=== PATIENT | male | born 1970 | race African-American/Black ===

== ENCOUNTER 2018-05-28 12:54 | Inpatient (IN) | payer MEDICARE, MEDICAID ==
[~2018-05-28] VITALS: Ht 185.4 cm; Wt 136.5 kg
--- NOTE | 2018-05-28 13:02 | NUR ---
PT C/O ABD PAIN RADIATING TO LOWER BACK SINCE THIS MORNING, 09/16 PS, PT IS AAOX4, NOT IN RESPIRATORY DISTRESS, V/S STABLE, HOOKED TO MONITOR, KEPT RESTED AND COMFORTABLE.
--- NOTE | 2018-05-28 13:10 | NUR ---
IV LINE ESTABLISHED, LABS DRAWNED AND SENT TO LAB.
--- NOTE | 2018-05-28 13:35 | NUR ---
MORPHINE 4MG IV GIVEN.
[2018-05-28] MEDS ORDERED: ONDANSETRON HCL/PF 4 MG/2 ML VIAL ONE (13:39)
[2018-05-28] MEDS ORDERED: MORPHINE SULFATE INJ 4 MG/ML DISP.SYRIN ONE (13:39)
[2018-05-28 13:43] LABS: BASOPHILS # (AUTO) 0.1 /CMM (0.0-0.2); BASOPHILS % (AUTO) 0.5 % (0.0-2.0); EOSINOPHILS % (AUTO) 3.5 % (0.0-6.0); HEMATOCRIT 39 % (39-51); HEMOGLOBIN 13.2 g/dL (13.5-17.5); LYMPHOCYTES # (AUTO) 1.7 /CMM (0.8-4.8); LYMPHOCYTES % (AUTO) 13.8 % (20.0-44.0); MEAN CORPUSCULAR HGB CONC 34 g/dl (31.0-36.0); MEAN CORPUSCULAR VOLUME 94 fL (80-96); MONOCYTES # (AUTO) 1.1 /CMM (0.1-1.30); MONOCYTES % (AUTO) 8.3 % (2.0-12.0); NEUTROPHILS # (AUTO) 9.4 /CMM (1.8-8.9); NEUTROPHILS % (AUTO) 73.9 % (43.0-81.0); PLATELET COUNT (AUTO) 295 /CMM (150-450); RED BLOOD CELL COUNT(AUTO) 4.18 MIL/uL (4.5-6.0); WHITE BLOOD COUNT (AUTO) 12.7 K/uL (4.3-11.0)
--- NOTE | 2018-05-28 13:46 | NUR ---
PT IS WHEELED TO CT SCAN VIA [facility].
--- NOTE | 2018-05-28 13:48 | NUR ---
URINAL GIVEN UNABLE TO PROVIDE URINE SPECIMEN.
[2018-05-28 13:53] LABS: CREATININE 2.7 mg/dL (0.6-1.3); POTASSIUM 3.9 mmol/L (3.5-5.1)
[2018-05-28 13:58] LABS: ALBUMIN 3.7 g/dL (3.4-5.0); BILIRUBIN,DIRECT 0.1 mg/dL (0.0-0.2); BILIRUBIN,TOTAL 0.6 mg/dL (0.2-1.0); TOTAL PROTEIN, SERUM 7.6 g/dL (6.4-8.2)
[2018-05-28] MEDS ORDERED: MORPHINE SULFATE INJ 2 MG/ML DISP.SYRIN IV ONE (14:00)
[2018-05-28] MEDS ORDERED: ONDANSETRON HCL/PF 4 MG/2 ML VIAL IVP ONE (14:00)
--- NOTE | 2018-05-28 14:30 | NUR ---
URINE SPECIMEN COLLECTED AND SENT TO LAB.
[2018-05-28 14:46] LABS: APPEARANCE,URINE Clear (CLEAR); BILIRUBIN,URINE Negative (NEGATIVE); BLOOD, URINE Negative Ery/uL (NEGATIVE); COLOR,URINE Yellow (YELLOW); KETONES,URINE Negative (NEGATIVE); LEUKOCYTE ESTERASE ,URINE Negative (NEGATIVE); NITRITE, URINE Negative (NEGATIVE); PROTEIN,URINE 100 mg/dl (NEGATIVE); UGLUCOSE Negative (NEGATIVE); UROBILINOGEN,URINE 0.2 EU/dL (0.2)
[2018-05-28] MEDS ORDERED: SPIR25TA PO (14:49)
[2018-05-28] MEDS ORDERED: CARV25TA2 PO (14:49)
[2018-05-28] MEDS ORDERED: ROSU10TA2 PO (14:49)
[2018-05-28] MEDS ORDERED: INSU100V37 SQ (14:49)
[2018-05-28] MEDS ORDERED: LOSA25TA27 PO (14:49)
[2018-05-28] MEDS ORDERED: PANT40TA2 PO (14:49)
[2018-05-28] MEDS ORDERED: FENO145T PO (14:49)
[2018-05-28] MEDS ORDERED: SITA100T PO (14:49)
[2018-05-28] MEDS ORDERED: OMEG1CAP PO (14:49)
[2018-05-28] MEDS ORDERED: ASPI-1169 PO (14:49)
[2018-05-28] MEDS ORDERED: METO2.5T2 PO (14:49)
[2018-05-28] MEDS ORDERED: INSU100V11 SQ (14:49)
[2018-05-28] MEDS ORDERED: ISOS30TA6 PO (14:49)
[2018-05-28] MEDS ORDERED: HYDR100T27 PO (14:49)
[2018-05-28] MEDS ORDERED: NIFE90TA2 PO (14:49)
[2018-05-28] MEDS ORDERED: CLON1PAT2 TD (14:49)
[2018-05-28] MEDS ORDERED: NIAC500T2 PO (14:49)
[2018-05-28] MEDS ORDERED: CLOP75TA15 PO (14:49)
[2018-05-28] MEDS ORDERED: BUME2TAB3 PO (14:49)
--- NOTE | 2018-05-28 14:51 | NUR ---
CALLED HOUSE SUP FOR MS BED
[2018-05-28] MEDS ORDERED: IV NS 0.9% 1,000 ML BAG IV ONE (15:00)
--- NOTE | 2018-05-28 15:04 | NUR ---
MS BED 317-2 GIVEN. RN IS KENNETH
--- NOTE | 2018-05-28 15:04 | NUR ---
TECH AT BEDSIDE FOR ULTRSOUND.
[2018-05-28] MEDS: hydrALAZINE HCL 50 MG TABLET PO SCH ×2 (15:30→17:28)
--- NOTE | 2018-05-28 15:40 | NUR ---
MS RN NOTES PATIENT ARRIVED AT UNIT AT 1530. REPORT RECEIVED FROM HELEN SALCIDO RN. PATIENT AWAKE, ALERT AND ORIENTED X 4, VERBALLY RESPONSIVE AND RESPONDS TO VERBAL AND TACTILE STIMULI. BREATHING EVEN AND UNLABORED. NO ACUTE DISTRESS AT THIS TIME. PATIENT CALM AND RELAXED. PATIENT ADMITTED UNDER MEDICAL SUPERVISION OF DR OROSCO, AWARE OF PATIENT ARRIVAL. PATIENT ORIENTED TO UNIT, STAFF, ROOM, PLAN OF CARE AND VERBALIZED UNDERSTANDING. WILL CONTINUE TO MONITOR. BED LOCKED AND IN LOW POSITION. BILATERAL UPPER SDIE RAILS UP AND LOCKED. CALL LIGHT WITHIN EASY REACH
[2018-05-28 16:00] VITALS: BP 143/70
[2018-05-28] MEDS ORDERED: MAGNESIUM HYDROXIDE 30 ML UDC PO PRN (16:00)
[2018-05-28] MEDS ORDERED: Z GUARD REMEDY 2 OZ OINT TP PRN (16:00)
[2018-05-28] MEDS ORDERED: MORPHINE SULFATE INJ 2 MG/ML DISP.SYRIN IV PRN (16:00)
[2018-05-28] MEDS ORDERED: ONDANSETRON HCL/PF 4 MG/2 ML VIAL IVP PRN (16:00)
[2018-05-28] MEDS ORDERED: ZOLPIDEM TARTRATE 5 MG TABLET PO PRN (16:00)
[2018-05-28] MEDS ORDERED: MAG HYDROX/AL HYDROX/SIMETH 30 ML UDC PO PRN (16:00)
--- NOTE | 2018-05-28 16:26 | NUR ---
MS RN NOTES SPOKE WITH DR. OROSCO AND VERIFIED NEW ORDER FOR NPO EXCEPT MEDICATIONS. ORDER NOTED AND CARRIED OUT. PATIENT MADE AWARE AND VERBALIZED UNDERSTANDING. WILL CONTINUE TO MONITOR
[2018-05-28] MEDS ORDERED: Medication Not On Formulary EA (Omega-3 Fatty Acids/Fish Oil (Fish Oil 1,000 Mg Capsule) PO SCH (17:00)
[2018-05-28] MEDS: IV 1/2NS 1000 ML 1,000 ML IV PRN (18:27)
--- NOTE | 2018-05-28 18:45 | NUR ---
MS RN NOTES PATIENT RESTING INSIDE ROOM. AWAKE, ALERT AND ORIENTED X 4, VERBALLY RESPONSIVE AND RESPONDS TO VERBAL AND TACTILE STIMULI. NO CHANGES IN LOC NOTED AT THIS TIME. IV INTACT AND FLUSHING WELL. PATIENT KEPT CLEAN, DRY AND COMFORTABLE. CONTINUE WITH NPO EXCEPT MEDICATIONS. PATIENT AWARE AND VERBALIZED UNDERSTANDING. WILL ENDORSE TO INCOMING SHIFT FOR BRIANNA. BED LOCKED AND IN LOW POSITION. BILATERAL UPPER SIDE RAILS UP AND LOCKED. CALL LIGHT WITHIN EASY REACH
--- NOTE | 2018-05-28 19:15 | NUR ---
RN Initial Notes: Received report from Bandar STAFFORD. Pt resting in bed, awake, sleeping, arouses to tactile stimuli, respiration even and unlabored, iv access patent and flushing well, infusing with 1/2 NS at 150 ml/hr. pt continent, uses urinal, urinal within reach. Pt claimed he's pain right now is manageable. Discussed plan of care to the pt, agree. Pt NPO x meds. Safety precautions for fall initiated, call light in reach, will continue monitoring pt.
[2018-05-28 20:00] VITALS: BP 136/79
--- NOTE | 2018-05-28 20:00 | NUR ---
rn notes: pt has hx of dm, no accu check order, also requesting nicotine patch, pt has chf hx, has order for ns at 150ml/hr, t/o from for accu check donta nj to received fluid 1/2 ns at 150 ml/hr per donta hutchison for nicotine patch 14mg.
--- NOTE | 2018-05-28 20:14 | NUR ---
rn notes: dr jorge luis de la o md came to the unit, at bed side with the pt, informed about nicotine patch, per okay to have nicotine patch, also stated to change morphine order from q4hrs prn to q3hrs prn, new order : morphine 2mg ivp q3hrs prn for severe pain 8-10.
[2018-05-28 20:40] VITALS: BP 136/79
[2018-05-28 21:26] VITALS: BP 165/74
[2018-05-28] MEDS: CARVEDILOL 12.5 MG TABLET PO SCH (21:30)
--- NOTE | 2018-05-28 21:30 | NUR ---
accu check: blood sugar test performed and result is 154, non insulin coverage per md, pt on npo, will monitor for any s/s of hypoglycemia
[2018-05-28] MEDS: NICOTINE PATCH (14MG) 14 MG PATCH.TD24 TD SCH (21:31)
[2018-05-28] MEDS: FENOFIBRATE NANOCRYS (145 MG) 145 MG TABLET PO SCH (21:31)
[2018-05-28] MEDS: BLOOD SUGAR DIAGNOSTIC 1 EACH STRIP IN SCH (21:31)
[2018-05-28] MEDS: CLOPIDOGREL BISULFATE 75 MG TABLET PO SCH (21:31)
[2018-05-28] MEDS: MORPHINE SULFATE INJ 2 MG/ML DISP.SYRIN IV PRN (21:32)
--- NOTE | 2018-05-28 21:32 | NUR ---
prn morphine: pt c/o 09/16 abdominal pain, requesting for morphine, prn morphine 2mg ivp administered to the pt at this time, vs taken and recorded prior to administering meds, will continue to monitor and reassess pt
--- NOTE | 2018-05-28 21:43 | NUR ---
rn notes: nicotine patch placed on SADA, non hairy part, educate pt regarding possible side effect of the medication
[2018-05-28 23:00] VITALS: BP 146/77
--- NOTE | 2018-05-29 00:33 | NUR ---
rn notes: seen pt sleeping at this time, snoring, appears calm and comfortable, no facial grimace noted, will continue monitoring pt
[2018-05-29 00:45] VITALS: BP 141/74
[2018-05-29] MEDS: MORPHINE SULFATE INJ 2 MG/ML DISP.SYRIN IV PRN ×6 (00:50→22:05)
--- NOTE | 2018-05-29 00:51 | NUR ---
prn morphine: pt c/o 09/16 abdominal pain requesting for morphine. prn Morphine 2mg ivp administered at this time, vs as follows: 141/74 hr 72, rr 18, 96% on ra, will continue to reassess and monitor
[2018-05-29] MEDS: IV 1/2NS 1000 ML 1,000 ML IV PRN (02:12)
[2018-05-29 03:30] VITALS: BP 150/73
--- NOTE | 2018-05-29 03:50 | NUR ---
prn morphine: pt called requesting for morphine, stated ps 8/10 abdominal pain, prn morphine 2mg ivp administered at this time, will continue to monitor and reassess pt
[2018-05-29] MEDS: BLOOD SUGAR DIAGNOSTIC 1 EACH STRIP IN SCH ×4 (06:37→21:17)
--- NOTE | 2018-05-29 06:45 | NUR ---
accu check: blood sugar check performed result is 143, no insulin given per order, pt npo acute pancreatitis, will monitor for any s/s of hypoglycemia
--- NOTE | 2018-05-29 06:51 | NUR ---
prn morphine: pt c/o 09/16 abdominal pain requesting for iv morphine, prn morphine 2mg ivp administered at this time, will continue to monitor and reassess
--- NOTE | 2018-05-29 06:56 | NUR ---
rn closing notes: pt remains on ra, denies any sob, last pain meds administered at 0651am. iv access remains patent and flushing well, infusing with 1/2 ns at 150ml/hr. no episode of n/v throughout the shift, kept on npo as ordered. no further complaints noted. vs remains stable, needs attended, for gi consult today. safety precautions for fall remains engaged, call light in reach, will endorse to day rn for continuity of care.
[2018-05-29] MEDS: PANTOPRAZOLE 40 MG TABLET.DR PO SCH (07:30)
--- NOTE | 2018-05-29 07:40 | NUR ---
MS RN Opening Notes Patient currently awake, resting in bed watching television. Semi-Fowlers position, supine. Alert and oriented x3, able to make needs known. No complaints of shortness of breath or abdominal pain at this time. Respirations even and unlabored on room air. Peripheral IV access to the left AC 18 gauge, intact, patent and infusing fluids as ordered. Updated patient on current plan of care and safety measures. Safety and fall precautions in place: bed in lowest and locked position, side rails up x2, bed alarm on, call light and personal possessions within reach. Room well lit and floor clear of items. Reminded patient of safety measures, verbalized understanding. Patient currently clean, dry and comfortable. Will continue to monitor and intervene as needed.
[2018-05-29 07:48] LABS: BASOPHILS # (AUTO) 0.1 /CMM (0.0-0.2); BASOPHILS % (AUTO) 0.6 % (0.0-2.0); EOSINOPHILS % (AUTO) 4.1 % (0.0-6.0); HEMATOCRIT 38 % (39-51); HEMOGLOBIN 12.7 g/dL (13.5-17.5); LYMPHOCYTES # (AUTO) 1.9 /CMM (0.8-4.8); MEAN CORPUSCULAR HGB CONC 33 g/dl (31.0-36.0); MEAN CORPUSCULAR VOLUME 95 fL (80-96); MONOCYTES # (AUTO) 0.9 /CMM (0.1-1.30); MONOCYTES % (AUTO) 9.2 % (2.0-12.0); NEUTROPHILS # (AUTO) 6.4 /CMM (1.8-8.9); NEUTROPHILS % (AUTO) 66.1 % (43.0-81.0); PLATELET COUNT (AUTO) 266 /CMM (150-450); RED BLOOD CELL COUNT(AUTO) 4.06 MIL/uL (4.5-6.0); WHITE BLOOD COUNT (AUTO) 9.7 K/uL (4.3-11.0)
[2018-05-29 07:56] VITALS: BP 126/73
[2018-05-29 08:05] VITALS: BP 126/73
[2018-05-29 08:08] LABS: ALBUMIN 3.6 g/dL (3.4-5.0); BILIRUBIN,TOTAL 0.6 mg/dL (0.2-1.0); CALCIUM, SERUM 9.6 mg/dL (8.5-10.1); CREATININE 2.7 mg/dL (0.6-1.3); MAGNESIUM 1.7 mg/dL (1.8-2.4); PHOSPHORUS 4.3 mg/dL (2.5-4.9); POTASSIUM 3.7 mmol/L (3.5-5.1); TOTAL PROTEIN, SERUM 7.6 g/dL (6.4-8.2)
[2018-05-29] MEDS ORDERED: LEVOFLOXACIN 500 MG /D5W 100ML 500 MG in PREMIX 1 EA IV SCH (09:00)
[2018-05-29] MEDS: NICOTINE PATCH (14MG) 14 MG PATCH.TD24 TD SCH (09:00)
[2018-05-29] MEDS: hydrALAZINE HCL 50 MG TABLET PO SCH ×3 (09:00→16:35)
[2018-05-29] MEDS: ASPIRIN 81 MG TAB.CHEW PO SCH (09:54)
[2018-05-29] MEDS: ATORVASTATIN 10 MG TABLET PO SCH (09:55)
[2018-05-29] MEDS: CARVEDILOL 12.5 MG TABLET PO SCH ×2 (09:55→21:14)
[2018-05-29] MEDS: NIFEdipine XL (30MG) 30 MG TAB PO SCH (09:56)
[2018-05-29] MEDS: ISOSORBIDE MONONITRATE (30MG) 30 MG TAB.SR.24H PO SCH (09:57)
[2018-05-29] MEDS: Magnesium 1GM/D5W 100ML PREMIX 100 ML IV SCH ×2 (12:43→13:53)
[2018-05-29 16:29] VITALS: BP 130/83
[2018-05-29] MEDS: IV D5/ 0.9% NACL 1,000 ML IV PRN (16:35)
--- NOTE | 2018-05-29 18:56 | NUR ---
MS RN Closing Notes Patient currently awake, resting in bed watching television. Semi-Fowlers position, supine. Alert and oriented x3, able to make needs known. No complaints of shortness of breath or abdominal pain at this time. Respirations even and unlabored on room air. Peripheral IV access to the left AC 18 gauge, intact, patent and infusing fluids as ordered. Updated patient on current plan of care and safety measures. Safety and fall precautions in place: bed in lowest and locked position, side rails up x2, bed alarm on, call light and personal possessions within reach. Room well lit and floor clear of items. Reminded patient of safety measures, verbalized understanding. Patient currently clean, dry and comfortable. Pain managed with PRN medications as ordered. Will endorse to awake overnight monitor RN for continuity of care.
--- NOTE | 2018-05-29 19:30 | NUR ---
RN MS OPENING NOTES RECEIVED PATIENT IN BED AWAKE, ALERT AND ORIENTED X4, VERBALLY RESPONSIVE, ABLE TO MAKE NEEDS KNOWN. BREATHING EVEN AND UNLABORED. NO SOB NOTED. TOLERATING ROOM AIR. WITH NO COMPLAINTS OF PAIN OR DISCOMFORT. NO FACIAL GRIMACING. IV ON LEFT AC INTACT AND PATENT WITH IVF INFUSING. SKIN DRY AND WARM TO TOUCH. AFEBRILE. PATIENT NOTED WITH A DISTENDED ABDOMEN. PER PATIENT, HE HAS NOT HAD A BOWEL FOR ALMOST 5 DAYS. WILL GIVE MOM ORDERED. ALL OTHER NEEDS MET. SAFETY MEASURES IN PLACE. CALL LIGHT WITHIN REACH. WILL CONTINUE TO MONITOR.
[2018-05-29 20:00] VITALS: BP 152/76
[2018-05-29] MEDS: CLOPIDOGREL BISULFATE 75 MG TABLET PO SCH (21:14)
[2018-05-29] MEDS: FENOFIBRATE NANOCRYS (145 MG) 145 MG TABLET PO SCH (21:14)
--- NOTE | 2018-05-29 22:22 | NUR ---
RN MS NOTES PATIENT REQUESTED FOR BENADRYL DUE TO ITCHING. PER PATIENT HE'S BEEN REQUESTING IT SINCE THE DAY SHIFT. PAGED FIBER DRIER OPERATOR NATHANAEL CABRAL FOR ORDER. WAITING RESPONSE. INFORMED PATIENT THAT CHACHO HUFFMAN WAS PAGED.
--- NOTE | 2018-05-29 22:55 | NUR ---
RN MS NOTES FOREST AND CONSERVATION WORKER NATHANAEL CABRAL, HERE IN UNIT, INFORMED AGAIN OF PATIENT'S REQUEST FOR BENADRYL DUE TO ITCHING. PER CHACHO HUFFMAN, BENADRYL 25MG PO Q6H PRN. ORDER NOTED AND CARRIED OUT.
[2018-05-29] MEDS ORDERED: diphenhydrAMINE HCL ELIX 25 MG/10 ML UDC PO PRN (23:00)
--- NOTE | 2018-05-29 23:00 | NUR ---
RN MS NOTES PATIENT SLEEPING RIGHT NOW. WILL GIVE BENADRYL WHEN REQUESTED AGAIN.
[2018-05-30] MEDS: MORPHINE SULFATE INJ 2 MG/ML DISP.SYRIN IV PRN ×5 (02:06→21:37)
[2018-05-30] MEDS ORDERED: diphenhydrAMINE HCL 25 MG CAPSULE PO PRN (02:12)
--- NOTE | 2018-05-30 02:22 | NUR ---
RN MS NOTES PER PATIENT, HE IS NOT AWARE THAT HE NEEDED HIS TRESIBE INSULIN. INFORMED PATIENT THAT THE HOSPITAL PHARMACY DOES NOT CARRY THE MEDICATION AND THAT HE WOULD NEED TO HAVE SOMEONE BRING IT IN. PER PATIENT, HE DOESNT NEED IT ANY WAY SINCE HE DOESN'T EAT, BUT INFORMED THAT PER PHARMACY, IT IS JUST IN CASE HE NEEDED COVERAGE. PER PATIENT HE WILL TRY TO HAVE MEDICATION BROUGHT IN.
[2018-05-30] MEDS: BLOOD SUGAR DIAGNOSTIC 1 EACH STRIP IN SCH ×4 (06:39→21:43)
--- NOTE | 2018-05-30 06:58 | NUR ---
RN MS CLOSING NOTES PATIENT RESTING IN BED. NO ACUTE CHANGES THROUGHOUT SHIFT. BREATHING EVEN AND UNLABORED. NO SOB NOTED. TOLERATING ROOM AIR. CURRENTLY WITH NO COMPLAINTS OF PAIN OR DISCOMFORT. NO FACIAL GRIMACING. IV ON LEFT AC INTACT AND PATENT WITH IVF INFUSING. SKIN DRY AND WARM TO TOUCH. AFEBRILE. ALL OTHER NEEDS MET. SAFETY MEASURES IN PLACE. CALL LIGHT WITHIN REACH. WILL ENDORSE TO ONCOMING NURSE FOR BRIANNA.
[2018-05-30] MEDS: PANTOPRAZOLE 40 MG TABLET.DR PO SCH (07:30)
--- NOTE | 2018-05-30 07:50 | NUR ---
m/s air bag builder: notes pt remains npo. voiced no discomfort at this time. instructed to call for assistance. will continue to monitor.
[2018-05-30 08:00] VITALS: BP 148/90
[2018-05-30] MEDS: NICOTINE PATCH (14MG) 14 MG PATCH.TD24 TD SCH (08:20)
--- NOTE | 2018-05-30 08:20 | NUR ---
m/s group social worker: md visit seen and examined by dr. lentz and updated plan of care. about to give medications to pt and dr. lentz wants me to hold off for now, wants his bowel to rest as stated. md aware of b/p, stated, "that's fine, hold the medications." pt aware and verbalized understanding.
[2018-05-30] MEDS: IV D5/ 0.9% NACL 1,000 ML IV PRN (08:22)
[2018-05-30] MEDS: hydrALAZINE HCL 50 MG TABLET PO SCH ×3 (08:23→16:37)
[2018-05-30] MEDS: CARVEDILOL 12.5 MG TABLET PO SCH ×2 (08:24→21:00)
[2018-05-30] MEDS: ISOSORBIDE MONONITRATE (30MG) 30 MG TAB.SR.24H PO SCH (08:24)
[2018-05-30] MEDS: ATORVASTATIN 10 MG TABLET PO SCH (08:24)
[2018-05-30] MEDS: ASPIRIN 81 MG TAB.CHEW PO SCH (08:24)
[2018-05-30] MEDS: NIFEdipine XL (30MG) 30 MG TAB PO SCH (08:25)
--- NOTE | 2018-05-30 08:55 | NUR ---
m/s muck farmer: notes pt c/o itchiness, but no rash noted. request for benadryl, informed pt that i need to call the doctor to change it to iv, pt verbalized understanding. pt remains npo. dr. lentz here and made aware with order to change benadryl to iv 25mg q 6 hrs prn. order read back and carried out and acknowledged.
[2018-05-30] MEDS: LEVOFLOXACIN 250 MG /D5W 50 ML 250 MG in PREMIX 1 EA IV SCH (09:24)
[2018-05-30] MEDS: diphenhydrAMINE HCL 50 MG/ML VIAL IV PRN ×2 (09:24→15:33)
--- NOTE | 2018-05-30 11:00 | NUR ---
m/s bell spinner: notes pt sounds asleep. no distress noted. will continue to monitor.
--- NOTE | 2018-05-30 12:20 | NUR ---
MS RN NOTES Administered Morphine 2mg IVP per Patients request. Patient stated pain level of 8/10 on LOWER ABDOMEN. Guarding and irritability noted. Medication was scanned but my computer . Vial discarded in the blue incinerator. Unable to scan medication.
--- NOTE | 2018-05-30 12:50 | NUR ---
m/s food and beverage lead: notes pt sounds asleep at this time. resp. even and unlabored. no s/s of discomfort. call light within reach.
--- NOTE | 2018-05-30 15:33 | NUR ---
m/s box car checker: notes c/o 09/16 abdominal pain, medicated with morphine 2mg ivp by rn. also given benadryl 25mg ivp due to itchiness via iv by rn. instructed to call for assistance. will continue to monitor.
[2018-05-30 16:00] VITALS: BP 154/93
--- NOTE | 2018-05-30 16:03 | NUR ---
m/s apartment groundskeeper: notes in bed awake, watching tv. denies any discomfort at this time. instructed to call for assistance. will monitor.
--- NOTE | 2018-05-30 18:11 | NUR ---
m/s poured pipe maker: notes pt sounds asleep. no distress noted. pt remains npo. needs attended. call light within reach.
--- NOTE | 2018-05-30 19:00 | NUR ---
m/s diamond sorter: notes bedside report given to emelia (rn) for continuity of care.
--- NOTE | 2018-05-30 19:15 | NUR ---
MS RN NOTE RECEIVED PT IN STABLE CONDITION, A&O X4, ABLE TO MAKE NEEDS KNOWN. CURRENTLY WATCHING TV. NO SIGNS OF SOB OR DISTRESS NO C/O PAIN. PT REMAINS NPO PER MD ORDER. ALL CURRENT NEEDS MET. SAFETY PRECAUTIONS IN PLACE: BED LOW, LOCKED, UPPER RAILS UP, AND CALL LIGHT WITHIN REACH. WILL CONT MONITOR.
[2018-05-30 20:00] VITALS: BP 165/83
[2018-05-30 20:04] VITALS: BP 165/83
--- NOTE | 2018-05-30 21:37 | NUR ---
MS RN NOTE PRN MORPHINE 1 MG IV GIVEN FOR ABD PAIN. WILL CONT TO MONITOR.
[2018-05-30] MEDS: CLOPIDOGREL BISULFATE 75 MG TABLET PO SCH (21:43)
[2018-05-30] MEDS: FENOFIBRATE NANOCRYS (145 MG) 145 MG TABLET PO SCH (21:43)
--- NOTE | 2018-05-30 21:43 | NUR ---
MS RN NOTE PM MEDICATIONS HELD PER MD ORDER.
[2018-05-31] MEDS: diphenhydrAMINE HCL 50 MG/ML VIAL IV PRN ×2 (01:16→09:26)
--- NOTE | 2018-05-31 01:16 | NUR ---
MS RN NOTE PRN BENADRYL 25 MG IV GIVEN PER PT REQUEST. WILL CONT. TO MONITOR.
[2018-05-31] MEDS: IV D5/ 0.9% NACL 1,000 ML IV PRN (01:22)
[2018-05-31] MEDS: MORPHINE SULFATE INJ 2 MG/ML DISP.SYRIN IV PRN ×6 (01:44→20:30)
--- NOTE | 2018-05-31 01:44 | NUR ---
MS RN NOTE PRN MORPHINE 1 MG IV GIVEN FOR ABD PAIN 09/16. WILL CONT. TO MONITOR.
--- NOTE | 2018-05-31 05:07 | NUR ---
MS RN NOTE PRN MORPHINE 1 MG IV GIVEN FOR ABD PAIN 09/16. WILL CONT. TO MONITOR.
--- NOTE | 2018-05-31 06:18 | NUR ---
MS RN NOTE PT IN STABLE CONDITION, A&O X4, ABLE TO MAKE NEEDS KNOWN. CURRENTLY WATCHING TV. NO SIGNS OF SOB OR DISTRESS. PAIN MANAGED PER MD ORDER. PT REMAINS NPO ORDERED BY MD. ALL CURRENT NEEDS MET. SAFETY PRECAUTIONS IN PLACE: BED LOW, LOCKED, UPPER RAILS UP, AND CALL LIGHT WITHIN REACH. WILL CONT MONITOR AND ENDORSE TO NEXT SHIFT FOR BRIANNA.
[2018-05-31 06:28] LABS: BASOPHILS % (AUTO) 0.3 % (0.0-2.0); EOSINOPHILS % (AUTO) 6.4 % (0.0-6.0); HEMATOCRIT 36 % (39-51); HEMOGLOBIN 11.9 g/dL (13.5-17.5); LYMPHOCYTES # (AUTO) 1.6 /CMM (0.8-4.8); LYMPHOCYTES % (AUTO) 17.6 % (20.0-44.0); MEAN CORPUSCULAR HGB CONC 33 g/dl (31.0-36.0); MEAN CORPUSCULAR VOLUME 94 fL (80-96); MONOCYTES # (AUTO) 0.9 /CMM (0.1-1.30); MONOCYTES % (AUTO) 9.5 % (2.0-12.0); NEUTROPHILS % (AUTO) 66.2 % (43.0-81.0); PLATELET COUNT (AUTO) 250 /CMM (150-450); RED BLOOD CELL COUNT(AUTO) 3.79 MIL/uL (4.5-6.0); WHITE BLOOD COUNT (AUTO) 9.1 K/uL (4.3-11.0)
[2018-05-31] MEDS: BLOOD SUGAR DIAGNOSTIC 1 EACH STRIP IN SCH ×5 (06:30→22:00)
[2018-05-31 06:57] LABS: CALCIUM, SERUM 9.6 mg/dL (8.5-10.1); CREATININE 2.4 mg/dL (0.6-1.3); POTASSIUM 3.9 mmol/L (3.5-5.1)
--- NOTE | 2018-05-31 07:10 | NUR ---
RN MS NOTES RECEIVED REPORT FROM PULP MIXER RN. PT IS A&O X4. PT DENIES ANY SOB BUT STATES THAT HE HAS BEEN HAVING COMPLAINTS OF PAIN IN THE ABD. AT PRESENT TIME PAIN IS TOLERABLE AND DOES NOT WANT ANY MEDICATION. 2 OUT OF 10 ON PAIN SCALE. BED IS IN LOWEST AND LOCKED POSITION WITH CALL LIGHT WITHIN REACH. ABLE TO MAKE NEEDS KNOWN. WILL CONTINUE TO MONITOR.
[2018-05-31 08:00] VITALS: BP 166/90
[2018-05-31] MEDS: PANTOPRAZOLE 40 MG TABLET.DR PO SCH (08:30)
[2018-05-31] MEDS: LEVOFLOXACIN 250 MG /D5W 50 ML 250 MG in PREMIX 1 EA IV SCH (08:46)
[2018-05-31] MEDS: ISOSORBIDE MONONITRATE (30MG) 30 MG TAB.SR.24H PO SCH (08:46)
[2018-05-31] MEDS: ATORVASTATIN 10 MG TABLET PO SCH (08:47)
[2018-05-31] MEDS: hydrALAZINE HCL 50 MG TABLET PO SCH ×3 (08:47→16:50)
[2018-05-31] MEDS: ASPIRIN 81 MG TAB.CHEW PO SCH (08:48)
[2018-05-31] MEDS: CARVEDILOL 12.5 MG TABLET PO SCH ×2 (08:48→22:00)
[2018-05-31] MEDS: NIFEdipine XL (30MG) 30 MG TAB PO SCH (08:48)
[2018-05-31] MEDS: NICOTINE PATCH (14MG) 14 MG PATCH.TD24 TD SCH (08:49)
[2018-05-31] MEDS: LOSARTAN POTASSIUM 25 MG TABLET PO SCH (13:24)
[2018-05-31] MEDS: BUMETANIDE (1 MG) 1 MG TABLET PO SCH (13:25)
--- NOTE | 2018-05-31 13:30 | NUR ---
RN MS NOTES SPOKE WITH PT ABOUT HOME MEDICATION TRESIBA. PT STATES FAMILY WILL BRING FROM HOME.
[2018-05-31 16:00] VITALS: BP 150/79
[2018-05-31] MEDS ORDERED: DEXTROSE 50%-WATER 50 ML DISP.SYRIN IV PRN (18:00)
--- NOTE | 2018-05-31 19:05 | NUR ---
RN CLOSING NOTES RECEIVED PT IN BED AWAKE AND ABLE TO MAKE NEEDS KNOWN. PT A&O X4. RESPIRATIONS EVEN AND UNLABORED WITH NO S/S OF ACUTE DISTRESS OR SOB NOTED. 20 IN LAC PATENT AND INTACT AND SL. SAFETY MEASURES IN PLACE WITH BED IS IN LOWEST LOCKED POSITION WITH SIDE RAILS UP X2. CALL LIGHT WITHIN REACH. WILL CONTINUE TO MONITOR. Addendum: 06/01/18 at 0321 by SEBASTIEN ANDRES RN MS RN OPENING NOTES
--- NOTE | 2018-05-31 19:22 | NUR ---
RN CLOSING NOTES GAVE REPORT TO SALESPERSON MEN'S AND BOYS' CLOTHING RN. PT IS A&O X4. PT DENIES ANY SOB BUT STATES THAT HE HAS BEEN HAVING COMPLAINTS OF PAIN IN THE ABD. AT PRESENT TIME PAIN IS TOLERABLE AND DOES NOT WANT ANY MEDICATION. 2 OUT OF 10 ON PAIN SCALE. BED IS IN LOWEST AND LOCKED POSITION WITH CALL LIGHT WITHIN REACH. ABLE TO MAKE NEEDS KNOWN. WILL ENDORSE CONTINUITY OF CARE TO SALESPERSON MEN'S AND BOYS' CLOTHING RN.
[2018-05-31 20:24] VITALS: BP 167/92
[2018-05-31] MEDS: CLOPIDOGREL BISULFATE 75 MG TABLET PO SCH (21:59)
[2018-05-31] MEDS: FENOFIBRATE NANOCRYS (145 MG) 145 MG TABLET PO SCH (21:59)
[2018-05-31] MEDS: INSULIN REGULAR, HUMAN 100 UNIT/ML 3 ML VIAL SQ PRN (22:04)
[2018-06-01] MEDS: MORPHINE SULFATE INJ 2 MG/ML DISP.SYRIN IV PRN ×4 (00:59→17:04)
[2018-06-01] MEDS: BLOOD SUGAR DIAGNOSTIC 1 EACH STRIP IN SCH ×4 (07:20→21:38)
--- NOTE | 2018-06-01 07:44 | NUR ---
MS RN NOTES PT IN BED AWAKE AND ABLE TO MAKE NEEDS KNOWN. PT A&O X4. RESPIRATIONS EVEN AND UNLABORED WITH NO S/S OF ACUTE DISTRESS OR SOB NOTED THROUGHOUT SHIFT. PT DENIES PAIN AT THIS TIME. IV IN RIGHT HAD 22G SL PATENT AND INTACT. SAFETY MEASURES IN PLACE WITH BED IS IN LOWEST LOCKED POSITION WITH SIDE RAILS UP X2. CALL LIGHT WITHIN REACH. WILL ENDORSE TO ONCOMING NURSE FOR BRIANNA.
[2018-06-01 07:46] LABS: BASOPHILS % (AUTO) 0.3 % (0.0-2.0); EOSINOPHILS % (AUTO) 6.9 % (0.0-6.0); HEMATOCRIT 36 % (39-51); LYMPHOCYTES # (AUTO) 1.4 /CMM (0.8-4.8); LYMPHOCYTES % (AUTO) 19.2 % (20.0-44.0); MEAN CORPUSCULAR HGB CONC 34 g/dl (31.0-36.0); MEAN CORPUSCULAR VOLUME 94 fL (80-96); MONOCYTES # (AUTO) 0.8 /CMM (0.1-1.30); MONOCYTES % (AUTO) 10.9 % (2.0-12.0); NEUTROPHILS # (AUTO) 4.6 /CMM (1.8-8.9); NEUTROPHILS % (AUTO) 62.7 % (43.0-81.0); PLATELET COUNT (AUTO) 251 /CMM (150-450); RED BLOOD CELL COUNT(AUTO) 3.84 MIL/uL (4.5-6.0); WHITE BLOOD COUNT (AUTO) 7.4 K/uL (4.3-11.0)
[2018-06-01 08:00] VITALS: BP 151/86
[2018-06-01 08:01] LABS: CALCIUM, SERUM 10.1 mg/dL (8.5-10.1); CREATININE 2.5 mg/dL (0.6-1.3); POTASSIUM 3.7 mmol/L (3.5-5.1)
[2018-06-01 08:35] VITALS: BP 151/86
[2018-06-01] MEDS: NICOTINE PATCH (14MG) 14 MG PATCH.TD24 TD SCH (09:17)
[2018-06-01] MEDS: PANTOPRAZOLE 40 MG TABLET.DR PO SCH (09:18)
[2018-06-01] MEDS: CARVEDILOL 12.5 MG TABLET PO SCH ×2 (09:18→21:39)
[2018-06-01] MEDS: NIFEdipine XL (30MG) 30 MG TAB PO SCH (09:18)
[2018-06-01] MEDS: ISOSORBIDE MONONITRATE (30MG) 30 MG TAB.SR.24H PO SCH (09:18)
[2018-06-01] MEDS: ATORVASTATIN 10 MG TABLET PO SCH (09:18)
[2018-06-01] MEDS: hydrALAZINE HCL 50 MG TABLET PO SCH ×3 (09:19→17:04)
[2018-06-01] MEDS: BUMETANIDE (1 MG) 1 MG TABLET PO SCH (09:19)
[2018-06-01] MEDS: LOSARTAN POTASSIUM 25 MG TABLET PO SCH (09:19)
[2018-06-01] MEDS: ASPIRIN 81 MG TAB.CHEW PO SCH (09:19)
[2018-06-01] MEDS: LEVOFLOXACIN 250 MG /D5W 50 ML 250 MG in PREMIX 1 EA IV SCH (09:32)
[2018-06-01] MEDS: INSULIN REGULAR, HUMAN 100 UNIT/ML 3 ML VIAL SQ PRN ×3 (12:36→21:49)
[2018-06-01 16:00] VITALS: BP 151/82
[2018-06-01 17:01] VITALS: BP 151/82
--- NOTE | 2018-06-01 19:15 | NUR ---
MS RN NOTES RECEIVED PT IN BED AWAKE AND ABLE TO MAKE NEEDS KNOWN. PT A&O X4. RESPIRATIONS EVEN AND UNLABORED WITH NO S/S OF ACUTE DISTRESS OR SOB NOTED. PT ON FULL LIQUID DIET AND TO ADVANCE TOLERATED. IV ON RIGHT HAND 22G PATENT AND INTACT SL. SAFETY MEASURES IN PLACE WITH BED IS IN LOWEST LOCKED POSITION WITH SIDE RAILS UP X2. CALL LIGHT WITHIN REACH. WILL CONTINUE TO MONITOR.
--- NOTE | 2018-06-01 19:36 | NUR ---
Endorsed care to RIVERA Adams. Herbert Vidal RN
[2018-06-01 20:00] VITALS: BP 139/90
[2018-06-01] MEDS: FENOFIBRATE NANOCRYS (145 MG) 145 MG TABLET PO SCH (21:39)
[2018-06-01] MEDS: CLOPIDOGREL BISULFATE 75 MG TABLET PO SCH (21:39)
[2018-06-01] MEDS ORDERED: INSULIN GLARGINE, 100 UNIT/ML CARTRIDGE SQ SCH (22:00)
--- NOTE | 2018-06-01 22:23 | NUR ---
MS RN NOTES PT REFUSED LANTUS INSULIN. PT ONLY RECEIVED SLIDING SCALE COVERAGE INSULIN 3 UNITS.
[2018-06-02] MEDS: MORPHINE SULFATE INJ 2 MG/ML DISP.SYRIN IV PRN (00:25)
--- NOTE | 2018-06-02 06:48 | NUR ---
MS RN NOTES PT IN BED SLEEPING BUT EASILY AWOKEN VERBALLY OR BY TOUCH. PT A/O X4 AND ABLE TO MAKE NEEDS KNOWN. RESPIRATIONS EVEN AND UNLABORED WITH NO S/S OF ACUTE DISTRESS OR SOB NOTED THROUGHOUT SHIFT. 1 MORPHINE GIVEN TO PT FOR PAIN, TOLERATED WELL, PT DENIES PAIN AT THIS TIME. PT ON FULL LIQUID DIET AND TO ADVANCE TOLERATED. IV ON RIGHT HAND 22G PATENT AND INTACT SL. SAFETY MEASURES IN PLACE WITH BED IS IN LOWEST LOCKED POSITION WITH SIDE RAILS UP X2. CALL LIGHT WITHIN REACH. WILL ENDORSE TO ONCOMING NURSE FOR BRIANNA.
[2018-06-02] MEDS: BLOOD SUGAR DIAGNOSTIC 1 EACH STRIP IN SCH (07:30)
[2018-06-02] MEDS: PANTOPRAZOLE 40 MG TABLET.DR PO SCH (07:30)
--- NOTE | 2018-06-02 07:36 | NUR ---
RN NOTE 0730 Accucheck taken per AM Shift, Blood sugar 156 no coverage given.
[2018-06-02 07:37] LABS: BASOPHILS % (AUTO) 0.3 % (0.0-2.0); EOSINOPHILS % (AUTO) 9.1 % (0.0-6.0); HEMATOCRIT 39 % (39-51); HEMOGLOBIN 12.6 g/dL (13.5-17.5); LYMPHOCYTES # (AUTO) 1.3 /CMM (0.8-4.8); MEAN CORPUSCULAR HGB CONC 33 g/dl (31.0-36.0); MEAN CORPUSCULAR VOLUME 94 fL (80-96); MONOCYTES # (AUTO) 0.7 /CMM (0.1-1.30); MONOCYTES % (AUTO) 10.7 % (2.0-12.0); NEUTROPHILS # (AUTO) 4.1 /CMM (1.8-8.9); NEUTROPHILS % (AUTO) 60.9 % (43.0-81.0); PLATELET COUNT (AUTO) 268 /CMM (150-450); RED BLOOD CELL COUNT(AUTO) 4.11 MIL/uL (4.5-6.0); WHITE BLOOD COUNT (AUTO) 6.7 K/uL (4.3-11.0)
--- NOTE | 2018-06-02 07:37 | NUR ---
RN Opening Note Received pt, stable and resting in bed. No s/s of resp distress/sob. No c/o pain at this time. IV access on right hand 22g SL. Abd non-distended, hypoactive bowel sounds present. Safety measures in place, call light in reach. Will cont to monitor.
[2018-06-02 07:57] LABS: CALCIUM, SERUM 10.2 mg/dL (8.5-10.1); CREATININE 2.5 mg/dL (0.6-1.3); POTASSIUM 3.6 mmol/L (3.5-5.1)
[2018-06-02 08:00] VITALS: BP 148/79
[2018-06-02] MEDS ORDERED: LEVOFLOXACIN (750 MG) 750 MG TABLET PO SCH (09:00)
[2018-06-02] MEDS: NICOTINE PATCH (14MG) 14 MG PATCH.TD24 TD SCH (09:37)
[2018-06-02] MEDS: CARVEDILOL 12.5 MG TABLET PO SCH (09:38)
[2018-06-02] MEDS: hydrALAZINE HCL 50 MG TABLET PO SCH (09:38)
[2018-06-02] MEDS: LOSARTAN POTASSIUM 25 MG TABLET PO SCH (09:40)
[2018-06-02 09:41] VITALS: BP 148/82
[2018-06-02] MEDS: NIFEdipine XL (30MG) 30 MG TAB PO SCH (09:41)
[2018-06-02] MEDS: ISOSORBIDE MONONITRATE (30MG) 30 MG TAB.SR.24H PO SCH (09:41)
[2018-06-02] MEDS: BUMETANIDE (1 MG) 1 MG TABLET PO SCH (09:41)
[2018-06-02] MEDS: ASPIRIN 81 MG TAB.CHEW PO SCH (09:41)
[2018-06-02] MEDS: ATORVASTATIN 10 MG TABLET PO SCH (09:41)
--- NOTE | 2018-06-02 12:00 | NUR ---
DISCHARGE NOTE PT DISCHARGED HOME. VSS, NO S/S OF RESP DISTRESS/SOB. NO C/O PAIN. DISCHARGE TEACHING PERFORMED USING EXIT CARE. ALL CONSULTS/IMAGING/LABS/MEDICATION LISTS PROVIDED. DISCHARGE INSTRUCTIONS/BELONGINGS LIST SIGNED, COPIED AND PLACED IN CHART. PT REFUSED D/C WOUND PHOTOS. IV ACCESS AND ID BAND REMOVED. PT LEFT HOSPITAL IN PRIVATE VEHICLE WITH .
[2018-06-02] MEDS ORDERED: CLONIDINE HCL 0.2MG/24H PTWK 1 EA PATCH TD SCH (15:00)
== END 2018-06-02 11:50 | disposition home or self-care (01) | DRG 438 ==
LOC: ER 12:56 → MED 15:11
PROVIDERS: ADMIT Internal Medicine; ATTEND Family Medicine
DX: K85.90 Acute pancreatitis without necrosis or infection, unspecified (principal); N17.0 Acute kidney failure with tubular necrosis; E87.1 Hypo-osmolality and hyponatremia; I13.0 Hypertensive heart and chronic kidney disease with heart failure and stage 1 through stage 4 chronic kidney disease, or unspecified chronic kidney disease; I50.32 Chronic diastolic (congestive) heart failure; E11.22 Type 2 diabetes mellitus with diabetic chronic kidney disease; E11.65 Type 2 diabetes mellitus with hyperglycemia; I25.10 Atherosclerotic heart disease of native coronary artery without angina pectoris; Z86.73 Personal history of transient ischemic attack (TIA), and cerebral infarction without residual deficits; N18.9 Chronic kidney disease, unspecified; Z79.4 Long term (current) use of insulin; Z95.1 Presence of aortocoronary bypass graft; I25.2 Old myocardial infarction; F17.200 Nicotine dependence, unspecified, uncomplicated; E78.5 Hyperlipidemia, unspecified; E86.1 Hypovolemia; K59.00 Constipation, unspecified; E66.9 Obesity, unspecified; Z68.39 Body mass index [BMI] 39.0-39.9, adult; E11.51 Type 2 diabetes mellitus with diabetic peripheral angiopathy without gangrene; K80.20 Calculus of gallbladder without cholecystitis without obstruction
CPT/HCPCS: 36415; 76705-TC; 78226; 80048-TC; 80053-TC; 80061-TC; 80076-TC; 81000-TC; 82962-TC; 83690-TC; 83735-TC; 84100-TC; 85025-TC; 87081-TC; A4216; A9537; G0378; J1200; J1815; J1956; J2270; J2405; J3475; J3490; J7030; J7042; Q0163

== ENCOUNTER 2018-09-08 17:03 | Emergency (ER) | payer MEDICARE, MEDICAID ==
[~2018-09-08] VITALS: Ht 185.4 cm; Wt 134.3 kg
[~2018-09-08 17:03] MED LIST: ASPI-1169 PO; BUME2TAB7 PO; CARV25TA2 PO; CLON1PAT2 TD; CLOP75TA15 PO; FENO145T PO; HYDR100T27 PO; INSU100V11 SQ; INSU100V37 SQ; ISOS30TA6 PO; LOSA25TA27 PO; METO2.5T2 PO; NIAC500T2 PO; NIFE90TA2 PO; OMEG1CAP PO; PANT40TA2 PO; ROSU10TA2 PO; SITA100T PO; SPIR25TA PO
--- NOTE | 2018-09-08 17:10 | NUR ---
SENT BY FOR POSSIBLE L LEG DVT. TO ER BED 9, HOOKED TO MONITOR, PROVIDED W WARM BLANKET. AWAITING MD KAPADIA.
--- NOTE | 2018-09-08 17:15 | NUR ---
DR DE LA VEGA AT BEDSIDE
--- NOTE | 2018-09-08 17:29 | NUR ---
US TECH AT BEDSIDE
--- NOTE | 2018-09-08 18:25 | NUR ---
Patient discharged to home in stable condition. Written and verbal after care instructions given. Patient verbalizes understanding of instruction.
[2018-09-08 18:26] VITALS: BP 154/84
== END 2018-09-08 18:27 | disposition home or self-care (01) ==
LOC: ER 17:03
DX: R60.0 Localized edema (principal); I11.0 Hypertensive heart disease with heart failure; I50.9 Heart failure, unspecified; E78.5 Hyperlipidemia, unspecified; E11.9 Type 2 diabetes mellitus without complications; F17.200 Nicotine dependence, unspecified, uncomplicated; Z98.890 Other specified postprocedural states; Z79.4 Long term (current) use of insulin; Z79.899 Other long term (current) drug therapy; Z79.82 Long term (current) use of aspirin
CPT/HCPCS: 93971-TC

== ENCOUNTER 2018-10-09 07:29 | Inpatient (IN) | payer MEDICARE, MEDICAID ==
[~2018-10-09] VITALS: Ht 185.4 cm; Wt 132.0 kg
--- NOTE | 2018-10-09 07:40 | NUR ---
DR. HARO AT BEDSIDE FOR EVAL. PATIENT C/O WORSENING ABDOMINAL PAIN SINCE TUESDAY, -N/V/D, AT BEDSIDE. PATIENT PLACED ONT HE MONITOR. VITALS STABLE. CHANGED INTO GOWN. KEPT COMFORTABLE. WAITING FOR ORDERS.
[2018-10-09] MEDS ORDERED: ONDANSETRON HCL/PF 4 MG/2 ML VIAL ONE (07:46)
[2018-10-09] MEDS ORDERED: HYDROMORPHONE 1 MG/1 ML DISP.SYRIN ONE (07:46)
--- NOTE | 2018-10-09 07:55 | NUR ---
IV LINE ESTABLISHED, BLOOD DRAWN AND SENT TO LAB.
[2018-10-09 07:57] LABS: BASOPHILS # (AUTO) 0.2 /CMM (0.0-0.2); BASOPHILS % (AUTO) 1.3 % (0.0-2.0); EOSINOPHILS % (AUTO) 2.2 % (0.0-6.0); HEMATOCRIT 43 % (39-51); HEMOGLOBIN 14.2 g/dL (13.5-17.5); LYMPHOCYTES # (AUTO) 2.2 /CMM (0.8-4.8); LYMPHOCYTES % (AUTO) 17.6 % (20.0-44.0); MEAN CORPUSCULAR HGB CONC 33 g/dl (31.0-36.0); MEAN CORPUSCULAR VOLUME 92 fL (80-96); MONOCYTES # (AUTO) 1.2 /CMM (0.1-1.30); MONOCYTES % (AUTO) 9.9 % (2.0-12.0); NEUTROPHILS # (AUTO) 8.6 /CMM (1.8-8.9); PLATELET COUNT (AUTO) 252 /CMM (150-450); RED BLOOD CELL COUNT(AUTO) 4.63 MIL/uL (4.5-6.0); WHITE BLOOD COUNT (AUTO) 12.4 K/uL (4.3-11.0)
[2018-10-09] MEDS ORDERED: IV NS 0.9% 500 ML BAG IV ONE (08:00)
[2018-10-09] MEDS ORDERED: ONDANSETRON HCL/PF 4 MG/2 ML VIAL IVP ONE (08:00)
[2018-10-09] MEDS ORDERED: HYDROMORPHONE INJ 2 MG/ML DISP.SYRIN IV ONE (08:00)
[2018-10-09 08:04] LABS: CALCIUM, SERUM 9.9 mg/dL (8.5-10.1); CARBON DIOXIDE 33 mmol/L (21-32); CHLORIDE 94 mmol/L (98-107); CREATININE 3.7 mg/dL (0.6-1.3); GLUCOSE 147 mg/dL (74-106); POTASSIUM 3.5 mmol/L (3.5-5.1); SODIUM SERUM 136 mmol/L (136-145); UREA NITROGEN, BLOOD 79 mg/dL (7-18)
[2018-10-09 08:11] LABS: ALANINE AMINOTRANSFERASE 27 U/L (12-78); ALBUMIN 3.7 g/dL (3.4-5.0); ALKALINE PHOSPHATASE 65 U/L (46-116); ASPARTATE AMINOTRANSFERASE 10 U/L (15-37); BILIRUBIN,DIRECT 0.1 mg/dL (0.0-0.2); BILIRUBIN,TOTAL 0.3 mg/dL (0.2-1.0); LIPASE 1810 U/L (73-393); TOTAL PROTEIN, SERUM 8.1 g/dL (6.4-8.2)
--- NOTE | 2018-10-09 08:23 | NUR ---
PAGED FOR DR LEHMAN/[facility], AWAITING CALLBACK
--- NOTE | 2018-10-09 08:27 | NUR ---
DR ARRIAZA CALLED BACK, SPEAKING WITH DR HARO
--- NOTE | 2018-10-09 08:38 | NUR ---
ASSIGNED MS BED 202
--- NOTE | 2018-10-09 08:59 | NUR ---
REPORT GIVEN TO ERNESTO STAFFORD FOR BRIANNA.
--- NOTE | 2018-10-09 09:02 | NUR ---
[facility] ACCEPTING PT
[2018-10-09] MEDS ORDERED: ZOLPIDEM TARTRATE 5 MG TABLET PO PRN (09:30)
[2018-10-09] MEDS ORDERED: Z GUARD REMEDY 2 OZ OINT TP PRN (09:30)
[2018-10-09] MEDS ORDERED: ACETAMINOPHEN 325 MG TABLET PO PRN (09:30)
[2018-10-09] MEDS ORDERED: MAGNESIUM HYDROXIDE 30 ML UDC PO PRN (09:30)
--- NOTE | 2018-10-09 09:46 | NUR ---
PATIENT TRANSFERRED TO MED SURG ROOM 202, IN STABLE CONDITION. DENIES PAIN AT THIS TIME. ENDORSED TO ERNESTO
[2018-10-09 10:00] VITALS: BP 153/85
[2018-10-09] MEDS ORDERED: HYDROMORPHONE INJ 0.5 MG/0.5 ML SYRINGE IV PRN (10:00)
--- NOTE | 2018-10-09 10:00 | NUR ---
MS RN NOTES PATIENT ADMITTED TO UNIT, REPORT RECEIVED FROM DYLAN STAFFORD. PATIENT ARRIVED VIA [facility]. AWAKE, ALERT AND ORIENTED X 3, VERBALLY RESPONSIVE AND RESPONDS TO VERBAL AND TACTILE STIMULI. BREATHING EVEN AND UNLABORED. PATIENT AMBULATORY WITH STEADY GAIT. ABLE TO AMBULATE FROM [facility] TO HOSPITAL BED. PATIENT WITH REPORT OF ABDOMINAL DISCOMFORT. PATIENT ADMITTED UNDER MEDICAL SUPERVISION OF DR JARVIS WITH CONSULT WITH DR ARRIAZA, BOTH PHYSICIANS AWARE OF PATIENT ARRIVAL. AWAITING ADMITTING ORDERS TO BE VERIFIED. PATIENT ORIENTED TO UNIT, STAFF, PLAN OF CARE, VERBALIZED UNDERSTANDING. WILL CONTINUE TO MONITOR. BED LOCKED AND IN LOW POSITION. BILATERAL UPPER SIDE RAILS UP AND LOCKED. CALL LIGHT WITHIN EASY REACH
[2018-10-09] MEDS: HYDROCODONE/APAP 5/325MG 1 EACH TABLET PO PRN ×3 (10:03→21:37)
--- NOTE | 2018-10-09 10:05 | NUR ---
MS RN NOTES PATIENT SEEN AND EXAMINED BY DR RAMIREZ, CLEARED PATIENT TO HAVE SURGERY IF INDICATED. WILL CONTINUE TO MONITOR
[2018-10-09] MEDS: IV NS 0.9% 1,000 ML IV SCH ×2 (10:38→20:59)
[2018-10-09] MEDS: hydrALAZINE HCL 50 MG TABLET PO SCH ×2 (12:23→16:12)
[2018-10-09] MEDS: HYDROMORPHONE 1 MG/1 ML DISP.SYRIN IV PRN ×3 (12:24→23:34)
--- NOTE | 2018-10-09 15:35 | NUR ---
MS RN NOTES PATIENT SEEN AND EXAMINED BY DR PAN. WITH NEW ORDERS REGARDING PATIENT OK TO START CLEAR LIQUID DIET. PATIENT MADE AWARE AND VERBALIZED UNDERSTANDING. NO FURTHER ORDERS RECEIVED. WILL CONTINUE TO MONITOR
[2018-10-09 15:55] LABS: CREATININE, URINE 132.5 MG/DL (30.0-125.0); URINE TOTAL PROTEIN 22.2 mg/dL (0-11.9)
[2018-10-09 15:58] LABS: APPEARANCE,URINE CLEAR (CLEAR); BILIRUBIN,URINE NEGATIVE (NEGATIVE); BLOOD, URINE NEGATIVE Ery/uL (NEGATIVE); COLOR,URINE YELLOW (YELLOW); KETONES,URINE NEGATIVE (NEGATIVE); LEUKOCYTE ESTERASE ,URINE NEGATIVE (NEGATIVE); NITRITE, URINE NEGATIVE (NEGATIVE); PROTEIN,URINE NEGATIVE (NEGATIVE); UGLUCOSE NEGATIVE (NEGATIVE); UROBILINOGEN,URINE 0.2 EU/dL (0.2)
[2018-10-09 16:00] VITALS: BP_SYST 135; BP_SYST 145; BP_DIAS 70; BP_DIAS 89
[2018-10-09] MEDS: NICOTINE PATCH (14MG) 14 MG PATCH.TD24 TD SCH (16:31)
[2018-10-09] MEDS ORDERED: Medication Not On Formulary EA (Omega-3 Fatty Acids/Fish Oil (Fish Oil 1,000 Mg Capsule) PO SCH (17:00)
[2018-10-09] MEDS ORDERED: CARVEDILOL 25 MG TABLET PO SCH (17:00)
[2018-10-09 17:06] LABS: EOSINOPHIL,URINE None Seen
--- NOTE | 2018-10-09 18:58 | NUR ---
MS RN NTOES PATIENT RESTING INSIDE ROOM. SLEEPING, EASILY AROUSABLE THROUGH VERBAL AND TACTILE STIMULI. NO ACUTE DISTRESS. PATIENT KEPT CLEAN, DRY AND COMFORTABLE. SAFETY PRECAUTIONS IN PLACE. WILL ENDORSE TO INCOMING SHIFT FOR BRIANNA. BED LOCKED AND IN LOW POSITION. BILATERAL UPPER SIDE RAILS UP AND LOCKED. CALL LIGHT WITHIN EASY REACH
--- NOTE | 2018-10-09 19:55 | NUR ---
RN OPENING NOTES RECEIVED REPORT FROM [facility] RIVERA OROZCO. FOUND Pt AWAKE, RESTING IN BED, PLAYING GAMES ON HIS IPAD; RESPIRATIONS EVEN AND UNLABORED, WITH EQUAL CHEST RISE AND FALL. NO S/S OF ACUTE DISTRESS OR SOB NOTED. Pt IS A/OX4, VERBAL, ABLE TO MAKE NEEDS KNOWN. IV ACCESS ON LAC #18G; IVF RUNNING WITH NS @100ML/HR INFUSING WELL. SAFETY MEASURES IN PLACE. BED LOW, LOCKED, HOB ELEVATED, SIDE RAILS UP, CALL LIGHT AND BEDSIDE TABLE WITHIN REACH. WILL CONTINUE TO MONITOR Pt's CONDITION AND SAFETY THROUGHOUT THE NIGHT.
[2018-10-09 20:00] VITALS: BP 141/85
[2018-10-09] MEDS: CARVEDILOL 12.5 MG TABLET PO SCH (21:32)
[2018-10-09] MEDS: FENOFIBRATE NANOCRYS (145 MG) 145 MG TABLET PO SCH (21:32)
[2018-10-09] MEDS ORDERED: CLOPIDOGREL BISULFATE 75 MG TABLET PO SCH (22:00)
[2018-10-10] MEDS: ONDANSETRON HCL/PF 4 MG/2 ML VIAL IVP PRN ×2 (00:47→10:24)
[2018-10-10] MEDS: HYDROCODONE/APAP 5/325MG 1 EACH TABLET PO PRN ×5 (03:23→22:52)
[2018-10-10] MEDS ORDERED: DEXTROSE 50%-WATER 50 ML DISP.SYRIN IV PRN (03:30)
[2018-10-10] MEDS: HYDROMORPHONE 1 MG/1 ML DISP.SYRIN IV PRN ×4 (04:52→20:06)
[2018-10-10 06:22] LABS: BASOPHILS % (AUTO) 0.4 % (0.0-2.0); EOSINOPHILS % (AUTO) 3.2 % (0.0-6.0); HEMATOCRIT 42 % (39-51); HEMOGLOBIN 13.7 g/dL (13.5-17.5); LYMPHOCYTES # (AUTO) 1.9 /CMM (0.8-4.8); LYMPHOCYTES % (AUTO) 17.8 % (20.0-44.0); MEAN CORPUSCULAR HGB CONC 33 g/dl (31.0-36.0); MEAN CORPUSCULAR VOLUME 93 fL (80-96); MONOCYTES % (AUTO) 9.5 % (2.0-12.0); NEUTROPHILS # (AUTO) 7.3 /CMM (1.8-8.9); NEUTROPHILS % (AUTO) 69.1 % (43.0-81.0); PLATELET COUNT (AUTO) 231 /CMM (150-450); WHITE BLOOD COUNT (AUTO) 10.5 K/uL (4.3-11.0)
[2018-10-10] MEDS: IV NS 0.9% 1,000 ML IV SCH ×2 (06:27→15:01)
--- NOTE | 2018-10-10 06:31 | NUR ---
RN NOTES AC ACCUCHECK BG 75. NO INSULIN COVERAGE NEEDED AT THIS TIME. PROVIDED APPLE JUICE.
[2018-10-10 06:35] LABS: ALBUMIN 3.4 g/dL (3.4-5.0); BILIRUBIN,DIRECT 0.1 mg/dL (0.0-0.2); BILIRUBIN,TOTAL 0.5 mg/dL (0.2-1.0); CALCIUM, SERUM 9.5 mg/dL (8.5-10.1); CREATININE 2.8 mg/dL (0.6-1.3); MAGNESIUM 2.2 mg/dL (1.8-2.4); PHOSPHORUS 3.7 mg/dL (2.5-4.9); POTASSIUM 3.4 mmol/L (3.5-5.1); TOTAL PROTEIN, SERUM 7.7 g/dL (6.4-8.2)
[2018-10-10] MEDS: BLOOD SUGAR DIAGNOSTIC 1 EACH STRIP IN SCH ×4 (06:49→21:58)
--- NOTE | 2018-10-10 06:55 | NUR ---
RN CLOSING NOTES NO SIGNIFICANT CHANGES IN Pt's CONDITION. Pt REMAINS STABLE PER BASELINE. NO S/S OF ACUTE DISTRESS OR SOB NOTED DURING THE NIGHT. ALL NEEDS MET AND ATTENDED TO. SAFETY MEASURES IN PLACE. Pt IS RESTING COMFORTABLY IN BED, WITH UNLABORED RESPIRATIONS AND EQUAL CHEST RISE AND FALL. WILL ENDORSE TO DAYSHIFT RN FOR Pt's BRIANNA.
--- NOTE | 2018-10-10 07:33 | NUR ---
MS RN NOTES PATIENT RECEIVED RESTING INSIDE ROOM. AWAKE, ALERT AND ORIENTED X 3, VERBALLY RESPONSIVE AND RESPONDS TO VERBAL AND TACTILE STIMULI. NO ACUTE DISTRESS. PATIENT CALM AND RELAXED. NO C/O PAIN OR DISCOMFORT. IVF RUNNING AND TOLERATING WELL. WILL CONTINUE TO MONITOR. BED LOCKED AND IN LOW POSITION. BILATERAL UPPER SIDE RAILS UP AND LOCKED. CALL LIGHT WITHIN EASY REACH
[2018-10-10 08:00] VITALS: BP 149/89
[2018-10-10] MEDS: ASPIRIN 81 MG TAB.CHEW PO SCH (08:10)
[2018-10-10] MEDS: ISOSORBIDE MONONITRATE (30MG) 30 MG TAB.SR.24H PO SCH (08:10)
[2018-10-10] MEDS: CARVEDILOL 12.5 MG TABLET PO SCH ×2 (08:10→21:58)
[2018-10-10] MEDS: hydrALAZINE HCL 50 MG TABLET PO SCH ×3 (08:11→17:36)
[2018-10-10] MEDS: NICOTINE PATCH (14MG) 14 MG PATCH.TD24 TD SCH (08:11)
[2018-10-10] MEDS: ATORVASTATIN 10 MG TABLET PO SCH (08:11)
[2018-10-10] MEDS: PANTOPRAZOLE 40 MG TABLET.DR PO SCH (08:11)
[2018-10-10] MEDS: NIFEdipine XL (30MG) 30 MG TAB PO SCH (08:13)
[2018-10-10] MEDS ORDERED: POTASSIUM CHLORIDE 20 MEQ TAB.PRT.SR PO ONE (11:00)
[2018-10-10] MEDS ORDERED: SENNOSIDES/DOCUSATE SODIUM 1 TAB TABLET PO PRN (11:00)
--- NOTE | 2018-10-10 11:30 | NUR ---
MS RN NOTES PATIENT SEEN AND EXAMINED BY DELL SWANSON NP. WITH NEW ORDER FOR HIDA SCAN. VERIFIED INFORMED CONSENT OBTAINED BY MD FROM PATIENT AND WITNESSED BY LICENSED STAFF. SPOKE WITH HI HENRY AND VERIFIED THAT PATIENT NEEDS TO BE NPO PRIOR TO HAVING PROCEDURE, MADE AWARE THAT PATIENT HAD BREAKFAST AND IS ON CLEAR LIQUID DIET. LUNCH TO BE HELD DUE TO HIDA SCAN. PATIENT MADE AWARE AND VERBALIZED UNDERSTANDING. WILL CONTINUE TO MONITOR
[2018-10-10] MEDS: DOCUSATE SODIUM 100 MG CAPSULE PO SCH ×3 (11:33→17:35)
--- NOTE | 2018-10-10 13:30 | NUR ---
MS RN NOTES PATIENT ASKED FOR NORCO PRIOR TO GOING. CLEARED BY NM TECH. GIVEN ORDERED. PATIENT LEFT UNIT FOR HIDA SCAN. LEFT UNIT VIA WHEELCHAIR.
--- NOTE | 2018-10-10 14:50 | NUR ---
MS RN NOTES PATIENT BACK TO UNIT IN STABLE CONDITION. WILL CONTINUE TO MONITOR
[2018-10-10] MEDS: SENNOSIDES/DOCUSATE SODIUM 1 TAB TABLET PO SCH (15:00)
[2018-10-10 16:00] VITALS: BP 137/77
--- NOTE | 2018-10-10 18:09 | NUR ---
MS RN NOTES PATIENT LEFT UNIT VIA WHEELCHAIR WITH UT TECH FOR FOLLOW-UP SCAN FOR HIDA SCAN.
--- NOTE | 2018-10-10 18:43 | NUR ---
MS RN NOTES PATIENT BACK TO UNIT IN STABLE CONDITION. CAME BACK TO UNIT BY WHEELCHAIR. PATIENT AMBULATED HALLWAY. NO CHANGES IN LOC NOTED. NO ACUTE DISTRESS. PATIENT KEPT CLEAN, DRY AND COMFORTABLE. PROVIDED WITH CALM, SAFE, HAZARD-FREE ENVIRONMENT. WILL ENDORSE TO INCOMING SHIFT FOR BRIANNA. BED LOCKED AND IN LOW POSITION. BILATERAL UPPER SIDE RAILS UP AND LOCKED. CALL LIGHT WITHIN EASY REACH
--- NOTE | 2018-10-10 19:12 | NUR ---
NM HIDA SCAN WAS COMPLETED, TECH:RB
--- NOTE | 2018-10-10 19:35 | NUR ---
RN OPENING NOTES RECEIVED REPORT FROM [employer] RIVERA OROZCO. FOUND Pt AWAKE, RESTING IN BED, WATCHING TV; RESPIRATIONS EVEN AND UNLABORED, WITH EQUAL CHEST RISE AND FALL. NO S/S OF ACUTE DISTRESS OR SOB NOTED. Pt IS A/OX4, VERBAL, ABLE TO MAKE NEEDS KNOWN. IV ACCESS ON LAC #18G; IVF RUNNING WITH NS @100ML/HR INFUSING WELL. SAFETY MEASURES IN PLACE. BED LOW, LOCKED, HOB ELEVATED, SIDE RAILS UP, CALL LIGHT AND BEDSIDE TABLE WITHIN REACH. WILL CONTINUE TO MONITOR Pt's CONDITION AND SAFETY THROUGHOUT THE NIGHT.
[2018-10-10 19:47] VITALS: BP 167/89
[2018-10-10 20:00] VITALS: BP 167/89
[2018-10-10] MEDS: FENOFIBRATE NANOCRYS (145 MG) 145 MG TABLET PO SCH (21:58)
--- NOTE | 2018-10-10 22:00 | NUR ---
RN NOTES HS ACCUCHECK BG 176. ADMINISTERED 3UN OF INSULIN PER SLIDING SCALE, ON LT DELTOID.
[2018-10-10] MEDS: INSULIN REGULAR, HUMAN 100 UNIT/ML 3 ML VIAL SQ PRN (22:08)
[2018-10-11] MEDS: IV NS 0.9% 1,000 ML IV SCH (02:07)
[2018-10-11] MEDS: HYDROMORPHONE 1 MG/1 ML DISP.SYRIN IV PRN ×3 (02:07→12:31)
[2018-10-11] MEDS: HYDROCODONE/APAP 5/325MG 1 EACH TABLET PO PRN ×2 (06:05→21:30)
--- NOTE | 2018-10-11 06:44 | NUR ---
RN NOTES AC ACCUCHECK BG 114. NO INSULIN COVERAGE NEEDED AT THIS TIME.
[2018-10-11] MEDS: BLOOD SUGAR DIAGNOSTIC 1 EACH STRIP IN SCH ×4 (06:46→21:29)
[2018-10-11] MEDS: PANTOPRAZOLE 40 MG TABLET.DR PO SCH (06:47)
[2018-10-11 08:00] VITALS: BP 185/88
[2018-10-11 08:09] LABS: BASOPHILS # (AUTO) 0.1 /CMM (0.0-0.2); BASOPHILS % (AUTO) 0.9 % (0.0-2.0); EOSINOPHILS % (AUTO) 4.7 % (0.0-6.0); HEMATOCRIT 42 % (39-51); HEMOGLOBIN 13.6 g/dL (13.5-17.5); LYMPHOCYTES # (AUTO) 1.7 /CMM (0.8-4.8); LYMPHOCYTES % (AUTO) 20.1 % (20.0-44.0); MEAN CORPUSCULAR HGB CONC 33 g/dl (31.0-36.0); MEAN CORPUSCULAR VOLUME 93 fL (80-96); MONOCYTES # (AUTO) 0.8 /CMM (0.1-1.30); MONOCYTES % (AUTO) 9.9 % (2.0-12.0); NEUTROPHILS # (AUTO) 5.4 /CMM (1.8-8.9); NEUTROPHILS % (AUTO) 64.4 % (43.0-81.0); PLATELET COUNT (AUTO) 242 /CMM (150-450); RED BLOOD CELL COUNT(AUTO) 4.47 MIL/uL (4.5-6.0); WHITE BLOOD COUNT (AUTO) 8.3 K/uL (4.3-11.0)
[2018-10-11 08:16] LABS: CREATININE 1.9 mg/dL (0.6-1.3); MAGNESIUM 2.2 mg/dL (1.8-2.4); PHOSPHORUS 2.6 mg/dL (2.5-4.9)
[2018-10-11] MEDS: NICOTINE PATCH (14MG) 14 MG PATCH.TD24 TD SCH (08:39)
[2018-10-11] MEDS: ASPIRIN 81 MG TAB.CHEW PO SCH (08:40)
[2018-10-11] MEDS: hydrALAZINE HCL 50 MG TABLET PO SCH ×3 (08:40→17:55)
[2018-10-11] MEDS: DOCUSATE SODIUM 100 MG CAPSULE PO SCH ×3 (08:40→17:55)
[2018-10-11] MEDS: SENNOSIDES/DOCUSATE SODIUM 1 TAB TABLET PO SCH (08:41)
[2018-10-11] MEDS: NIFEdipine XL (30MG) 30 MG TAB PO SCH (08:41)
[2018-10-11] MEDS: CARVEDILOL 12.5 MG TABLET PO SCH ×2 (08:42→21:29)
[2018-10-11] MEDS: ATORVASTATIN 10 MG TABLET PO SCH (08:42)
[2018-10-11] MEDS: ISOSORBIDE MONONITRATE (30MG) 30 MG TAB.SR.24H PO SCH (08:44)
[2018-10-11 12:07] LABS: *SPE A/G RATIO 0.9 (0.7-1.7); *SPE ALBUMIN 3.4 g/dL (2.9-4.4); *SPE ALPHA-1-GLOBULIN 0.3 g/dL (0.0-0.4); *SPE ALPHA-2-GLOBULIN 0.9 g/dL (0.4-1.0); *SPE BETA GLOBULIN 1.2 g/dL (0.7-1.3); *SPE GLOBULIN, TOTAL 3.6 g/dL (2.2-3.9); *SPE M-SPIKE Not Observed g/dL (Not Observed); *SPEGAMMA GLOBULIN 1.2 g/dL (0.4-1.8)
[2018-10-11 13:07] LABS: PTH, INTACT 38 pg/mL (15-65)
[2018-10-11] MEDS ORDERED: BUPIVACAINE 0.5 % PF 150 MG/30 ML VIAL ONE (14:11)
[2018-10-11] MEDS ORDERED: ANESTHESIA TRAY IN PYXIS 1 EA TRAY MC ONE (14:11)
--- NOTE | 2018-10-11 14:15 | NUR ---
rn notes pt taken to [place], consents signed, and checklist complete. patient requested to have earrings taped instead of removed.
[2018-10-11] MEDS ORDERED: HYDROMORPHONE INJ 2 MG/ML DISP.SYRIN ONE (14:40)
[2018-10-11] MEDS ORDERED: ROCURONIUM BROMIDE 50 MG/5 ML ONE (14:40)
[2018-10-11] MEDS ORDERED: HYDROMORPHONE 1 MG/1 ML DISP.SYRIN ONE ×2 (16:33→16:44)
[2018-10-11] MEDS ORDERED: ONDANSETRON HCL/PF 4 MG/2 ML VIAL ONE (16:50)
[2018-10-11] MEDS ORDERED: FENTANYL PF 100MCG/2ML AMPUL ONE (17:02)
--- NOTE | 2018-10-11 19:00 | NUR ---
RN MS OPENING NOTES RECEIVED PATIENT IN BED AWAKE ALERT AND ORIENTED X4, RESPIRATIONS EVEN AND UNLABORED WITH EQUAL RISE AND FALL OF CHEST, DENIES ANY PAIN OR DISCOMFORT AT THIS TIME, RESPIRATIONS EVEN AND UNLABORED WITH EQUAL RISE AND FALL OF CHEST, ON 2 L VIA NC , NO SOB PRESENT, CONTINUOUS PULSE OX IN PLACE, SP02 98%. GABE DRAIN INTACT SEROSANGUINOUS COLOR NOTED DRESSING TO SURGICAL INCISION REMAIN C/D/I,GABE DRAIN 50 CC OUTPUT AT THIS TIME WITH PROPER SUCTION. ON CLEAR LIQUID DIET, IV SITE TO LEFT HAND #18 G INTACT AND PATENT, NO REDNESS, NO INFILTRATION PRESENT, IVF RUNNING ORDERED.SAFETY PRECAUTIONS IN PLACE, ORIENTED TO STAFF AND CALL LIGHT AND KEPT WITHIN REACH, ALL NEEDS ATTENDED AT THIS TIME, WILL CONTINUE TO MONITOR AND ATTEND TO NEEDS.
--- NOTE | 2018-10-11 19:35 | NUR ---
RN CLOSING NOTES PT STABLE SP LAP CHUY. X4 INCISION SITES, CLEAN AND COVERED WITH BANDAGE. GABE DRAIN INTAKE. ALL POST OP ORDERS CARRIED OUT ORDERED. PT HAS LEFT HAND #18 IV INTAKE AND RUNNING NS @100 ML/HR. PT VITAL SIGNS STABLE. PT CONTINUOUS PULSE OX CONNECTED AND WNL. SAFETY PRECAUTIONS IN PLACE, BED IN LOWEST LOCKED POSITION, X2 SIDE RAILS UP AND CALL LIGHT WITHIN REACH. WILL ENDORSE TO REGULATORY TECHNICIAN NURSE FOR CONTINUITY OF CARE.
[2018-10-11] MEDS: MORPHINE SULFATE INJ 2 MG/ML DISP.SYRIN IV PRN (19:43)
--- NOTE | 2018-10-11 19:43 | NUR ---
RN MS NOTES PATIENT C/O PAIN TO SURGICAL SITE 07/17 REQUESTING FOR MORPHINE PRN MORPHINE GIVEN ORDERED, WILL CONTINUE TO MONITOR FOR EFFECTIVENESS, VITAL SIGN WNL.
--- NOTE | 2018-10-11 19:47 | NUR ---
RN NOTES HELD 1200 INSULIN COVERAGE PT NPO FOR SX HELD 1730 INSULIN COVERAGE PT HAS HAD POOR PO INTAKE SINCE RETURNING FROM SX.
[2018-10-11 20:00] VITALS: BP_SYST 143; BP_DIAS 75; BP_DIAS 78
[2018-10-11] MEDS: FENOFIBRATE NANOCRYS (145 MG) 145 MG TABLET PO SCH (21:30)
--- NOTE | 2018-10-11 21:30 | NUR ---
RN MS NOTES PATIENT COMPLAINT OF PAIN TO SURGICAL SITE STATES 6,08/16. REQUESTING FOR PAIN MEDICATION , NORCO PRN OFFERED,PATIENT AGREED VITAL SIGNS WNL. PRN NORCO GIVEN WILL CONTINUE TO MONITOR FOR EFFECTIVENESS
[2018-10-11] MEDS: INSULIN REGULAR, HUMAN 100 UNIT/ML 3 ML VIAL SQ PRN (21:32)
[2018-10-11] MEDS: IV NS 0.9% 1,000 ML IV PRN (21:42)
[2018-10-12] MEDS: MORPHINE SULFATE INJ 2 MG/ML DISP.SYRIN IV PRN ×5 (00:27→20:51)
--- NOTE | 2018-10-12 00:27 | NUR ---
RN MS NOTES PATIENT COMPLAINT OF PAIN TO ABDOMEN AREA, STATES 11/16 REQUESTING FOR PAIN MEDICATION , VS WNL , MORPHINE OFFERED, PATIENT AGREED PRN GIVEN ORDERED, WILL CONTINUE TO MONITOR FOR EFFECTIVENESS.
--- NOTE | 2018-10-12 01:14 | NUR ---
RN MS NOTES PATIENT STATES "MORPHINE IS NOT HELPFUL STILL HAS A PAIN RATE OF 10", NON PHARMACOLOGICAL INTERVENTIONS ATTEMPTED PATIENT IS NOW SITING UP IN CHAIR, WATCHING TV , LIGHTS DIMMED, WILL CONTINUE TO MONITOR FOR EFFECTIVENESS. WILL CONTINUE TO OFFER PRN PAIN MEDICATIONS ORDERED
[2018-10-12] MEDS: HYDROCODONE/APAP 5/325MG 1 EACH TABLET PO PRN (01:54)
--- NOTE | 2018-10-12 04:59 | NUR ---
RN MS NOTES PATIENT COMPLAINT OF PAIN TO ABDOMEN AREA -11/16 REQUESTING FOR PAIN MEDICATION , VS WNL. PRN MORPHINE REQUESTED, PRN GIVEN REPOSITIONED WILL CONTINUE TO MONITOR FOR EFFECTIVENESS, SP02 IN PLACE 02 2 L VIA NC 100%
[2018-10-12 06:30] LABS: BASOPHILS % (AUTO) 0.4 % (0.0-2.0); EOSINOPHILS % (AUTO) 0.8 % (0.0-6.0); HEMATOCRIT 32 % (39-51); HEMOGLOBIN 10.5 g/dL (13.5-17.5); LYMPHOCYTES # (AUTO) 1.4 /CMM (0.8-4.8); LYMPHOCYTES % (AUTO) 19.7 % (20.0-44.0); MEAN CORPUSCULAR HGB CONC 33 g/dl (31.0-36.0); MEAN CORPUSCULAR VOLUME 93 fL (80-96); MONOCYTES # (AUTO) 0.7 /CMM (0.1-1.30); MONOCYTES % (AUTO) 9.7 % (2.0-12.0); NEUTROPHILS # (AUTO) 5.1 /CMM (1.8-8.9); NEUTROPHILS % (AUTO) 69.4 % (43.0-81.0); PLATELET COUNT (AUTO) 223 /CMM (150-450); RED BLOOD CELL COUNT(AUTO) 3.44 MIL/uL (4.5-6.0); WHITE BLOOD COUNT (AUTO) 7.3 K/uL (4.3-11.0)
[2018-10-12] MEDS: BLOOD SUGAR DIAGNOSTIC 1 EACH STRIP IN SCH ×4 (06:40→22:17)
[2018-10-12] MEDS: INSULIN REGULAR, HUMAN 100 UNIT/ML 3 ML VIAL SQ PRN ×2 (06:43→13:08)
[2018-10-12 06:48] LABS: CALCIUM, SERUM 8.3 mg/dL (8.5-10.1); CREATININE 2.4 mg/dL (0.6-1.3); PHOSPHORUS 2.8 mg/dL (2.5-4.9); POTASSIUM 4.4 mmol/L (3.5-5.1)
--- NOTE | 2018-10-12 06:57 | NUR ---
RN MS CLOSING NOTES PATIENT IN BED AWAKE ALERT AND ORIENTED X4, RESPIRATIONS EVEN AND UNLABORED WITH EQUAL RISE AND FALL OF CHEST, DENIES ANY PAIN OR DISCOMFORT AT THIS TIME, STATES WHEN NOT MOVING HE DOES NOT HAVE PAIN. RESPIRATIONS EVEN AND UNLABORED WITH EQUAL RISE AND FALL OF CHEST, ON 2 L VIA NC , NO SOB PRESENT, CONTINUOUS PULSE OX IN PLACE, SP02 99%. GABE DRAIN INTACT SEROSANGUINOUS COLOR NOTED DRESSING TO SURGICAL INCISION REMAIN C/D/I,GABE DRAIN 200 CC OUTPUT AT THIS TIME WITH PROPER SUCTION. ON CLEAR LIQUID DIET, IV SITE TO LEFT HAND #18 G INTACT AND PATENT, NO REDNESS, NO INFILTRATION PRESENT, IVF RUNNING ORDERED.SAFETY PRECAUTIONS IN PLACE, CALL LIGHT KEPT WITHIN REACH, ALL NEEDS ATTENDED AT THIS TIME, , AMBULATION ENCOURAGED, WALKED OUT OF ROOM 1/2 HALLWAY AND ALSO TO THE RESTROOM, WAS ABLE TO VOID WELL. WILL CONTINUE TO MONITOR AND ATTEND TO NEEDS AND ENDORSE TO NEXT SHIFT.
--- NOTE | 2018-10-12 07:20 | NUR ---
RN OPENING NOTES RECEIVED PATIENT IN STABLE CONDITION RESTING IN BED. A/OX4, ABLE TO MAKE NEEDS KNOWN. NOT IN ANY FORM OF DISTRESS, NO SOB, ON 2LPM O2 VIA NC SATTING 98%, ON CONTINUES PULSE OX. DENIED PAIN OR DISCOMFORT AT THIS TIME. IV ACCESS INTACT AND PATENT. GABE DRAIN INTACT DRAINING WITH SEROSANGUINOUS FLUID, OUTPUT 10CC AT THIS TIME WITH PROPER SUCTION. S/P LAPCHOLE YESTERDAY(10/11), SX DRESSIING C/D/I. KEPT PATIENT SAFE AND COMFORTABLE. BED IN LOW/LOCKED POSITION, SIDERAILS UPX2, CALL LIGHT IN REACH. WILL CONTINUE TO MONITOR ACCORDINGLY.
[2018-10-12 07:45] LABS: ALBUMIN 2.8 g/dL (3.4-5.0); BILIRUBIN,DIRECT 0.1 mg/dL (0.0-0.2); BILIRUBIN,TOTAL 0.3 mg/dL (0.2-1.0); TOTAL PROTEIN, SERUM 6.7 g/dL (6.4-8.2)
[2018-10-12 08:00] VITALS: BP 147/79
--- NOTE | 2018-10-12 09:13 | NUR ---
RN NOTES GABE DRAIN EMPTIED WITH 80ML OUTPUT. GABE DRAIN CLOSED AND ENSURE PROPER SUCTION
[2018-10-12] MEDS: NICOTINE PATCH (14MG) 14 MG PATCH.TD24 TD SCH (09:16)
[2018-10-12] MEDS: SENNOSIDES/DOCUSATE SODIUM 1 TAB TABLET PO SCH (09:16)
[2018-10-12] MEDS: ATORVASTATIN 10 MG TABLET PO SCH (09:17)
[2018-10-12] MEDS: ISOSORBIDE MONONITRATE (30MG) 30 MG TAB.SR.24H PO SCH (09:17)
[2018-10-12] MEDS: DOCUSATE SODIUM 100 MG CAPSULE PO SCH ×3 (09:18→17:30)
[2018-10-12] MEDS: CARVEDILOL 12.5 MG TABLET PO SCH ×2 (09:18→22:17)
[2018-10-12] MEDS: ASPIRIN 81 MG TAB.CHEW PO SCH (09:18)
[2018-10-12] MEDS: NIFEdipine XL (30MG) 30 MG TAB PO SCH (09:19)
[2018-10-12] MEDS: PANTOPRAZOLE 40 MG TABLET.DR PO SCH (09:19)
[2018-10-12] MEDS: hydrALAZINE HCL 50 MG TABLET PO SCH ×3 (09:19→17:30)
[2018-10-12] MEDS: IV NS 0.9% 1,000 ML IV PRN ×2 (10:38→22:17)
--- NOTE | 2018-10-12 11:54 | NUR ---
RN NOTES:DRAIN EMPTIED GABE DRAIN, OUTPUT WAS 100CC, BLOODY. DELL SWANSON NP AT BEDSIDE AWARE.
[2018-10-12 16:00] VITALS: BP 155/75
[2018-10-12 16:13] LABS: HEMOGLOBIN 9.1 g/dL (13.5-17.5)
--- NOTE | 2018-10-12 17:00 | NUR ---
RIVERA NOTES:DRAIN EMPTIED GABE DRAIN, OUTPUT WAS 100CC, SEROSANGUINEOUS. GABE DRAIN PLUG IN PLACE AND FLATTEN BULB FOR SUCTION. Addendum: 10/12/18 at 1939 by RUPESH HAGEN MD TAYLOR
--- NOTE | 2018-10-12 19:10 | NUR ---
RN CLOSING NOTES PATIENT IN STABLE CONDITION. ALL NEEDS ATTENDED AND PROVIDED. ALL DUE MEDICATIONS GIVEN ORDERED. KEPT PATIENT SAFE AND COMFORTABLE. BED IN LOW/LOCKED POSITION, SIDERAILS UPX2,CALL LIGHT IN REACH. ENDORSED TO NIGHT RN FOR BRIANNA Addendum: 10/12/18 at 1940 by RUPESH HAGEN GABE DRAIN OUTPUT AT 1938 IS 100CC, BLOODY. HH RECHECK SCHEDULE AT 10PM PER
--- NOTE | 2018-10-12 19:30 | NUR ---
MS/RN OPENING NOTES PT RECEIVED AWAKE, RESTING COMFORTABLY IN BED. A/OX3. ON 2LPM O2 VIA NC, BREATHING EVEN AND UNLABORED. DENIES SOB AND PAIN AT THIS TIME. IV TO LEFT WRIST PATENT AND INTACT RUNNING IVF ORDERED. 4 SURGICAL INCISIONS WITH DRESSINGS C/D/I. GABE DRAIN TO R. LAT. ABDOMEN DRAINING SANGUINOUS OUTPUT. BED IN LOW/LOCKED POSITION WITH CALL LIGHT IN REACH. HOB ELEVATED AND BILAT. UPPER SIDE RAILS IN PLACE. WILL CONTINUE TO MONITOR
[2018-10-12 20:00] VITALS: BP 127/68
--- NOTE | 2018-10-12 21:00 | NUR ---
MS/RN NOTES PT C/O 09/16 SHARP ABDOMINAL PAIN. ADMINISTERED PRN MORPHINE ORDERED. ON CONTINUOUS PULSE OX, SPO2 96%.
[2018-10-12] MEDS: FENOFIBRATE NANOCRYS (145 MG) 145 MG TABLET PO SCH (22:17)
--- NOTE | 2018-10-12 22:50 | NUR ---
MS/RN NOTES BGL 139, NO INSULIN COVERAGE. PT WITH POOR APPETITE
[2018-10-13] MEDS: MORPHINE SULFATE INJ 2 MG/ML DISP.SYRIN IV PRN ×5 (01:16→12:45)
--- NOTE | 2018-10-13 01:26 | NUR ---
MS/RN NOTES PT C/O 09/16 ABDOMINAL PAIN. REQUESTING MORPHINE. ADMINISTERED ORDERED. BP 142/66, HR 86, SPO2 97% ON 2LPM O2 VIA NC.
[2018-10-13] MEDS: BLOOD SUGAR DIAGNOSTIC 1 EACH STRIP IN SCH ×4 (06:47→22:36)
[2018-10-13 06:52] LABS: ALBUMIN 2.9 g/dL (3.4-5.0); BILIRUBIN,TOTAL 0.4 mg/dL (0.2-1.0); CALCIUM, SERUM 8.9 mg/dL (8.5-10.1); CREATININE 2.1 mg/dL (0.6-1.3); POTASSIUM 4.6 mmol/L (3.5-5.1); TOTAL PROTEIN, SERUM 6.2 g/dL (6.4-8.2)
--- NOTE | 2018-10-13 07:04 | NUR ---
MS/RN CLOSING NOTES PT AWAKE, WATCHING TV IN BED. A/OX4. ON 2LPM O2 VIA NC, BREATHING EVEN AND UNLABORED. DENIES SOB, ABDOMINAL PAIN MANAGED WITH PRN MORPHINE ORDERED. ON CONTINUOUS PULSE OX WITH SPO2 98%. LAC PATENT AND INTACT RUNNING IVF ORDERED. GABE DRAIN TO RLQ INCISION SITE DRAINING TO GRAVITY WITH 265 CC SANGUINOUS. ALL NEEDS MET. NO SIGNIFICANT CHANGES OVERNIGHT. BED IN LOW/LOCKED POSITION WITH CALL LIGHT IN REACH. BILAT. UPPER SIDE RAILS IN PLACE. HOB ELEVATED. WILL ENDORSE TO DAY SHIFT RN BRIANNA.
[2018-10-13 07:15] LABS: BASOPHILS % (AUTO) 0.6 % (0.0-2.0); EOSINOPHILS % (AUTO) 3.5 % (0.0-6.0); HEMATOCRIT 29 % (39-51); HEMOGLOBIN 9.4 g/dL (13.5-17.5); LYMPHOCYTES # (AUTO) 1.5 /CMM (0.8-4.8); LYMPHOCYTES % (AUTO) 24.6 % (20.0-44.0); MEAN CORPUSCULAR HGB CONC 32 g/dl (31.0-36.0); MEAN CORPUSCULAR VOLUME 96 fL (80-96); MONOCYTES # (AUTO) 0.6 /CMM (0.1-1.30); MONOCYTES % (AUTO) 9.5 % (2.0-12.0); NEUTROPHILS # (AUTO) 3.8 /CMM (1.8-8.9); NEUTROPHILS % (AUTO) 61.8 % (43.0-81.0); PLATELET COUNT (AUTO) 140 /CMM (150-450); RED BLOOD CELL COUNT(AUTO) 3.05 MIL/uL (4.5-6.0); WHITE BLOOD COUNT (AUTO) 6.2 K/uL (4.3-11.0)
--- NOTE | 2018-10-13 07:20 | NUR ---
RN OPENING NOTES RECEIVED PATIENT IN STABLE CONDITION RESTING IN BED. A/OX4, ABLE TO MAKE NEEDS KNOWN. NOT IN ANY FORM OF DISTRESS, NO SOB, ON ROOM AIR, SATTING 95%, ON CONTINUES PULSE OX. DENIED PAIN OR DISCOMFORT AT THIS TIME. IV ACCESS INTACT AND PATENT. GABE DRAIN INTACT, BLOODY DRAINAGE NOTED, OUTPUT 10CC AT THIS TIME WITH PROPER SUCTION. S/P LAPCHOLE (10/11), SX DRESSIING C/D/I. KEPT PATIENT SAFE AND COMFORTABLE. BED IN LOW/LOCKED POSITION, SIDERAILS UPX2, CALL LIGHT IN REACH. WILL CONTINUE TO MONITOR ACCORDINGLY.
[2018-10-13 08:00] VITALS: BP 154/87
[2018-10-13] MEDS: DOCUSATE SODIUM 100 MG CAPSULE PO SCH ×3 (08:27→17:14)
[2018-10-13] MEDS: PANTOPRAZOLE 40 MG TABLET.DR PO SCH (08:27)
[2018-10-13] MEDS: ISOSORBIDE MONONITRATE (30MG) 30 MG TAB.SR.24H PO SCH (08:28)
[2018-10-13] MEDS: hydrALAZINE HCL 50 MG TABLET PO SCH ×3 (08:28→17:15)
[2018-10-13] MEDS: SENNOSIDES/DOCUSATE SODIUM 1 TAB TABLET PO SCH (08:28)
[2018-10-13] MEDS: CARVEDILOL 12.5 MG TABLET PO SCH ×2 (08:29→20:38)
[2018-10-13] MEDS: ATORVASTATIN 10 MG TABLET PO SCH (08:29)
[2018-10-13] MEDS: ASPIRIN 81 MG TAB.CHEW PO SCH (08:30)
[2018-10-13] MEDS: NIFEdipine XL (30MG) 30 MG TAB PO SCH (08:30)
[2018-10-13] MEDS: NICOTINE PATCH (14MG) 14 MG PATCH.TD24 TD SCH (08:39)
[2018-10-13] MEDS: IV NS 0.9% 1,000 ML IV PRN ×2 (10:34→21:06)
--- NOTE | 2018-10-13 12:12 | NUR ---
RN NOTES BS 159, INSULIN COVERAGE HELD DUE TO PATIENT HAS NO APPETITE, HE DIDNT EAT HIS LUNCH TRAY. KATHI CROFT ACCORDINGLY Addendum: 10/13/18 at 1553 by RUPESH HAGEN 1230: ENCOURAGED PATIENT TO EAT. PATIENT AGREED TO EAT. 1250: 2 UNITS INSULIN COVERAGE GIVEN
[2018-10-13] MEDS: INSULIN REGULAR, HUMAN 100 UNIT/ML 3 ML VIAL SQ PRN ×2 (12:51→21:05)
[2018-10-13] MEDS: HYDROCODONE/APAP 5/325MG 1 EACH TABLET PO PRN ×2 (15:45→20:38)
--- NOTE | 2018-10-13 15:54 | NUR ---
RN NOTES DR PAZ AT BEDSIDE TALKING TO PATIENT. PER MD, PATIENT IS NOT STABLE ENOUGH FOR DISCHARGE, WILL STAY ONE MORE NIGHT.
[2018-10-13 16:00] VITALS: BP 140/72
--- NOTE | 2018-10-13 16:00 | NUR ---
RN NOTES PER DELL SWANSON NP, WEAN OFF PATIENT FROM IV NARCOTICS.
--- NOTE | 2018-10-13 19:00 | NUR ---
RN CLOSING NOTES PATIENT IN STABLE CONDITION. ALL NEEDS ATTENDED AND PROVIDED. ALL DUE MEDICATIONS GIVEN ORDERED. KEPT PATIENT SAFE AND COMFORTABLE. BED IN LOW/LOCKED POSITION, SIDERAILS UPX2,CALL LIGHT IN REACH. ENDORSED TO NIGHT RN FOR BRIANNA Addendum: 10/13/18 at 1922 by RUPESH HAGEN GABE DRAIN IN PLACE, TOTAL OUTPUT IS 110CC THE WHOLE AM SHIFT, BLOODY DRAINAGE NOTED, DR PAZ AWARE. GABE DRAIN TO BULB SUCTION, ENSURED PROPER SUCTION (BULB DEFLATED)
[2018-10-13 20:00] VITALS: BP 151/57
--- NOTE | 2018-10-13 20:01 | NUR ---
MS RN NOTES RECEIVED PATIENT ASLEEP IN BED WITH NO DISTRESS NOTED. CALL LIGHT WITHIN REACH. DRESSINGS ON ABDOMINAL INCISION CLEAN, DRY, AND INTACT. GABE DRAIN INTACT AND PATENT. NO C/O PAIN OR DISCOMFORT. ENCOURAGED USE OF CALL LIGHT FOR ASSISTANCE AND VERBALIZED GOOD UNDERSTANDING. ROOM FREE OF CLUTTER AND BELONGINGS KEPT NEAR BEDSIDE. BED IN LOW LOCK SETTING. WILL CONTINUE TO MONITOR.
[2018-10-13] MEDS: FENOFIBRATE NANOCRYS (145 MG) 145 MG TABLET PO SCH (22:36)
[2018-10-14] MEDS: HYDROCODONE/APAP 5/325MG 1 EACH TABLET PO PRN ×3 (00:37→12:11)
[2018-10-14] MEDS: INSULIN REGULAR, HUMAN 100 UNIT/ML 3 ML VIAL SQ PRN (06:33)
--- NOTE | 2018-10-14 06:56 | NUR ---
MS RN NOTES RECEIVED PATIENT ASLEEP IN BED WITH NO DISTRESS NOTED. CALL LIGHT WITHIN REACH. PERIPHERAL ALL DUE MEDS GIVEN ORDERED WITH NO ASE NOTED. NO FURTHER C/O PAIN OR DISCOMFORT. ABDOMINAL DRESSINGS CLEAN, DRY, AND INTACT. GABE DRAIN INTACT AND PATENT WITH 90ML SANGUINEOUS OUTPUT THROUGHOUT SHIFT. BED IN LOW LOCK SETTING WITH BED ALARM ON AND FUNCTIONING PROPERLY. WILL ENDORSE TO ONCOMING SHIFT.
[2018-10-14 07:11] LABS: BASOPHILS # (AUTO) 0.1 /CMM (0.0-0.2); BASOPHILS % (AUTO) 0.8 % (0.0-2.0); EOSINOPHILS % (AUTO) 4.5 % (0.0-6.0); HEMATOCRIT 30 % (39-51); HEMOGLOBIN 9.9 g/dL (13.5-17.5); LYMPHOCYTES # (AUTO) 1.8 /CMM (0.8-4.8); MEAN CORPUSCULAR HGB CONC 33 g/dl (31.0-36.0); MEAN CORPUSCULAR VOLUME 94 fL (80-96); MONOCYTES # (AUTO) 0.6 /CMM (0.1-1.30); MONOCYTES % (AUTO) 8.7 % (2.0-12.0); NEUTROPHILS # (AUTO) 4.1 /CMM (1.8-8.9); PLATELET COUNT (AUTO) 255 /CMM (150-450); RED BLOOD CELL COUNT(AUTO) 3.21 MIL/uL (4.5-6.0); WHITE BLOOD COUNT (AUTO) 6.8 K/uL (4.3-11.0)
[2018-10-14] MEDS: BLOOD SUGAR DIAGNOSTIC 1 EACH STRIP IN SCH ×2 (07:24→12:22)
--- NOTE | 2018-10-14 07:25 | NUR ---
MS/RN NOTE THE PATIENT ALERT AND ORIENTED X4. DENIES SOB. RESPIRATION REGULAR AND UNLABORED. PATIENT IN NO APPARENT DISTRESS. IN ROOM AIR. GABE DRAIN PRESENT NOTED WITH HAVE SANGUINEOUS DRAINAGE. LAC G 22 PATENT AND SALINE LOCKED. BED LOW AND LOCKED. SIDE RAILS UP X2. CALL LIGHT WITHIN REACH. WILL CONTINUE TO MONITOR.
[2018-10-14 07:37] LABS: CALCIUM, SERUM 9.5 mg/dL (8.5-10.1); CREATININE 1.8 mg/dL (0.6-1.3); MAGNESIUM 1.8 mg/dL (1.8-2.4); PHOSPHORUS 2.2 mg/dL (2.5-4.9); POTASSIUM 4.3 mmol/L (3.5-5.1)
[2018-10-14 08:00] VITALS: BP 174/90
[2018-10-14] MEDS: hydrALAZINE HCL 50 MG TABLET PO SCH ×2 (08:09→12:22)
[2018-10-14] MEDS: ISOSORBIDE MONONITRATE (30MG) 30 MG TAB.SR.24H PO SCH (08:10)
[2018-10-14] MEDS: NIFEdipine XL (30MG) 30 MG TAB PO SCH (08:10)
[2018-10-14] MEDS: CARVEDILOL 12.5 MG TABLET PO SCH (08:10)
[2018-10-14] MEDS: ASPIRIN 81 MG TAB.CHEW PO SCH (08:11)
[2018-10-14] MEDS: PANTOPRAZOLE 40 MG TABLET.DR PO SCH (08:11)
[2018-10-14] MEDS: ATORVASTATIN 10 MG TABLET PO SCH (08:11)
[2018-10-14] MEDS: DOCUSATE SODIUM 100 MG CAPSULE PO SCH ×2 (08:11→12:22)
[2018-10-14] MEDS: SENNOSIDES/DOCUSATE SODIUM 1 TAB TABLET PO SCH (08:11)
[2018-10-14] MEDS: NICOTINE PATCH (14MG) 14 MG PATCH.TD24 TD SCH (08:16)
[2018-10-14] MEDS ORDERED: CIPR-262 PO (08:41)
[2018-10-14] MEDS ORDERED: METR500T PO (08:41)
[2018-10-14] MEDS ORDERED: HYDR-4384 PO (08:41)
[2018-10-14] MEDS ORDERED: NEUTRA PHOS 1 POWD.PACKET NG ONE (11:30)
[2018-10-14 12:22] VITALS: BP 156/72
--- NOTE | 2018-10-14 12:35 | NUR ---
MS/RN NOTE BLOOD SUGAR IS 157. THE PATIENT REFUSING LUNCH AND INSULIN. PATIENT IN STABLE CONDITION.
--- NOTE | 2018-10-14 13:18 | NUR ---
MS/RN NOTE THE PATIENT ALERT AND ORIENTED X4. IN ROOM AIR AND SATURATION IS AT 98%. DENIES SOB. RESPIRATION REGULAR AND UNLABORED. PATIENT HAS PAIN 1/10 ON INCISION SITE. INCISIONS WITH NO DISCHARGE OR BLOOD. BRISA INTACT. PATIENT REFUSED DISCHARGE SKIN PICTURES TO BE TAKEN DESPITE EXPLAINING RISKS AND BENEFITS. ABDOMEN SOFT AND NON-DISTENDED. DISCHARGE EDUCATION PROVIDED TO THE PATIENT AND HE VERBALIZED UNDERSTANDING. PRESCRIPTION GIVEN TO THE PATIENT AND COPY IS KEPT IN THE CHART. PATIENT IS PICKED UP BY FRIEND AND GOING HOME. THE PATIENT LEFT THE HOSPITAL ON A PRIVATE CAR AND IN STABLE CONDITION.
== END 2018-10-14 13:15 | disposition home or self-care (01) | DRG 417 ==
LOC: ER 07:29 → MEDSG2 09:15
PROVIDERS: ADMIT Internal Medicine; ATTEND Nurse Practitioner Acute Care
PROC: 0FT44ZZ Resection of Gallbladder, Percutaneous Endoscopic Approach (ICD-10-PCS; principal; 2018-10-11)
PROC: 0DN84ZZ Release Small Intestine, Percutaneous Endoscopic Approach (ICD-10-PCS; 2018-10-11)
DX: K85.10 Biliary acute pancreatitis without necrosis or infection (principal); N17.0 Acute kidney failure with tubular necrosis; I13.0 Hypertensive heart and chronic kidney disease with heart failure and stage 1 through stage 4 chronic kidney disease, or unspecified chronic kidney disease; I50.32 Chronic diastolic (congestive) heart failure; D62 Acute posthemorrhagic anemia; N18.9 Chronic kidney disease, unspecified; E11.22 Type 2 diabetes mellitus with diabetic chronic kidney disease; K80.20 Calculus of gallbladder without cholecystitis without obstruction; K86.1 Other chronic pancreatitis; I25.10 Atherosclerotic heart disease of native coronary artery without angina pectoris; Z95.1 Presence of aortocoronary bypass graft; E11.21 Type 2 diabetes mellitus with diabetic nephropathy; E11.51 Type 2 diabetes mellitus with diabetic peripheral angiopathy without gangrene; Z86.73 Personal history of transient ischemic attack (TIA), and cerebral infarction without residual deficits; E78.5 Hyperlipidemia, unspecified; G47.33 Obstructive sleep apnea (adult) (pediatric); E66.9 Obesity, unspecified; Z68.38 Body mass index [BMI] 38.0-38.9, adult; K66.0 Peritoneal adhesions (postprocedural) (postinfection); F17.210 Nicotine dependence, cigarettes, uncomplicated
CPT/HCPCS: 36415; 71045-TC; 78226; 80048-TC; 80053-TC; 80061-TC; 80076-TC; 81000-TC; 82550-TC; 82570-TC; 82962-TC; 83690-TC; 83735-TC; 83970; 84100-TC; 84155; 84155-TC; 84165; 84300-TC; 84484-TC; 85025-TC; 85027-TC; 85610-TC; 85730-TC; 87081-TC; 88304-TC; 93307-TC; 94799-TC; A9537; G0378; J0690; J1100; J1170; J1815; J2270; J2405; J2704; J2710; J3010; J3490; J7030; J7040

== ENCOUNTER 2019-06-22 09:28 | Inpatient (IN) | payer MEDICARE, OTHER ==
[~2019-06-22] VITALS: Ht 185.4 cm; Wt 131.5 kg
[~2019-06-22 09:28] MED LIST changes: +CIPR-262 PO; -CLON1PAT2 TD; +HYDR-4384 PO; +METR500T PO; -NIAC500T2 PO; -SPIR25TA PO
--- NOTE | 2019-06-22 09:35 | NUR ---
sent by PMD due to LLQ pain since tuesday, 11/16 ps. Patient a/ox4, breathing even and unlabored, no sob noted, needs attended. Attached to the integrity assessor. Kept comfortable.
[2019-06-22] MEDS ORDERED: ONDANSETRON HCL/PF 4 MG/2 ML VIAL ONE (09:48)
[2019-06-22] MEDS ORDERED: CLON0.3T PO (09:49)
[2019-06-22] MEDS ORDERED: SPIR50TA5 PO (09:49)
[2019-06-22] MEDS ORDERED: MORPHINE SULFATE INJ 4 MG/ML DISP.SYRIN ONE (09:49)
[2019-06-22] MEDS ORDERED: MORPHINE SULFATE INJ 2 MG/ML DISP.SYRIN IV ONE (10:00)
[2019-06-22] MEDS ORDERED: IV NS 0.9% 1,000 ML BAG IV ONE ×2 (10:00→11:00)
[2019-06-22] MEDS ORDERED: ONDANSETRON HCL/PF 4 MG/2 ML VIAL IVP ONE (10:00)
[2019-06-22 10:06] LABS: BASOPHILS # (AUTO) 0.1 /CMM (0.0-0.2); BASOPHILS % (AUTO) 0.5 % (0.0-2.0); EOSINOPHILS % (AUTO) 1.6 % (0.0-6.0); HEMATOCRIT 41 % (39-51); HEMOGLOBIN 13.7 g/dL (13.5-17.5); LYMPHOCYTES # (AUTO) 1.6 /CMM (0.8-4.8); LYMPHOCYTES % (AUTO) 9.2 % (20.0-44.0); MEAN CORPUSCULAR HGB CONC 34 g/dl (31.0-36.0); MEAN CORPUSCULAR VOLUME 91 fL (80-96); MONOCYTES # (AUTO) 2.4 /CMM (0.1-1.30); MONOCYTES % (AUTO) 13.8 % (2.0-12.0); NEUTROPHILS # (AUTO) 13.1 /CMM (1.8-8.9); NEUTROPHILS % (AUTO) 74.9 % (43.0-81.0); PLATELET COUNT (AUTO) 232 /CMM (150-450); RED BLOOD CELL COUNT(AUTO) 4.48 MIL/uL (4.5-6.0); WHITE BLOOD COUNT (AUTO) 17.4 K/uL (4.3-11.0)
[2019-06-22 10:14] LABS: ALANINE AMINOTRANSFERASE 21 U/L (12-78); ALBUMIN 2.6 g/dL (3.4-5.0); ALKALINE PHOSPHATASE 75 U/L (46-116); ASPARTATE AMINOTRANSFERASE 18 U/L (15-37); BILIRUBIN,DIRECT 0.2 mg/dL (0.0-0.2); BILIRUBIN,TOTAL 0.6 mg/dL (0.2-1.0); CALCIUM, SERUM 9.8 mg/dL (8.5-10.1); CARBON DIOXIDE 27 mmol/L (21-32); CHLORIDE 84 mmol/L (98-107); CREATININE 5.2 mg/dL (0.6-1.3); GLUCOSE 217 mg/dL (74-106); LIPASE 1155 U/L (73-393); POTASSIUM 3.7 mmol/L (3.5-5.1); SODIUM SERUM 124 mmol/L (136-145); TOTAL PROTEIN, SERUM 8.3 g/dL (6.4-8.2)
[2019-06-22 10:21] LABS: UREA NITROGEN, BLOOD 129 mg/dL (7-18)
[2019-06-22 10:33] LABS: BAND % (MANUAL) 1 % (0.0-5.0); EOSINOPHILS % (MANUAL) 3 % (0-4); LYMPHOCYTES % (MANUAL) 6 % (16-48); MONOCYTES % (MANUAL) 14 % (0-11.0); NEUTROPHILS % (MANUAL) 76 (42-76)
[2019-06-22 10:52] LABS: APPEARANCE,URINE CLEAR (CLEAR); BILIRUBIN,URINE Negative (NEGATIVE); BLOOD, URINE Negative Ery/uL (NEGATIVE); COLOR,URINE Light yellow (YELLOW); KETONES,URINE Negative (NEGATIVE); LEUKOCYTE ESTERASE ,URINE Negative (NEGATIVE); NITRITE, URINE Negative (NEGATIVE); PROTEIN,URINE 30 mg/dl (NEGATIVE); UGLUCOSE Negative (NEGATIVE); UROBILINOGEN,URINE 0.2 EU/dL (0.2)
[2019-06-22] MEDS ORDERED: HYDROMORPHONE INJ 0.5 MG/0.5 ML SYRINGE IV ONE (11:00)
[2019-06-22] MEDS ORDERED: PIPERACILLIN /TAZOBACTAM 4.5 G in IV D5W 50 ML IV ONE (11:00)
[2019-06-22] MEDS ORDERED: HYDROMORPHONE 1 MG/1 ML DISP.SYRIN ONE (11:08)
[2019-06-22] MEDS ORDERED: PIPERACILLIN /TAZOBACTAM 3.375 G VIAL IV ONE (11:08)
--- NOTE | 2019-06-22 11:29 | NUR ---
NURSING SUP GAVE M/S BED 315-2.
[2019-06-22] MEDS ORDERED: ZOSYN IVPB 3.375 G in IV D5W 50ml IV ONE (11:30)
--- NOTE | 2019-06-22 11:37 | NUR ---
PATIENT RESTING, NO DISTRESS NOTED, NEEDS ATTENDED.
--- NOTE | 2019-06-22 11:43 | NUR ---
REPORT GIVEN TO LORY TORREZ FOR BRIANNA.
[2019-06-22 12:00] VITALS: BP 145/82
--- NOTE | 2019-06-22 12:04 | NUR ---
PATIENT TRANSFERRED TO ROOM 315-2 VIA ACLS PROTOCOL. NO DISTRESS NOTED.
--- NOTE | 2019-06-22 12:05 | NUR ---
tele technical trainer: admission admitted this 48 year old male pt from [facility] with dx: abdominal pain. awake, a/ox4. c/o slight discomfort to abdomen 3-/10 level. oriented to room and surroundings. no acute distress noted. no skin breakdown noted. instructed to call for assistance. will continue to monitor. Addendum: 06/22/19 at 1722 by LORY JOLLEY STEEL ERECTING PUSHER pt has own accu check device attached to his stomach, pt checks his bs himself.
[2019-06-22] MEDS ORDERED: ACETAMINOPHEN 325 MG TABLET PO PRN (12:30)
[2019-06-22] MEDS ORDERED: MAGNESIUM HYDROXIDE 30 ML UDC PO PRN (12:30)
[2019-06-22] MEDS ORDERED: Z GUARD REMEDY 2 OZ OINT TP PRN (12:30)
[2019-06-22] MEDS ORDERED: DEXTROSE 50%-WATER 50 ML DISP.SYRIN IV PRN (12:30)
[2019-06-22] MEDS ORDERED: PIPERACILLIN /TAZOBACTAM 2.25 G in IV D5W 50 ML IV SCH ×2 (13:00→21:00)
[2019-06-22] MEDS: LINAGLIPTIN 5 MG TABLET PO SCH (13:00)
[2019-06-22 13:06] LABS: CHOLESTEROL 89 mg/dL (<200); HDL CHOLESTEROL 18 mg/dL (40-60); LDL 51 mg/dL (0-99); TRIGLYCERIDES 171 mg/dL (30-150)
[2019-06-22] MEDS: IV NS 0.9% 1,000 ML IV PRN (13:33)
[2019-06-22] MEDS: ATORVASTATIN 10 MG TABLET PO SCH (13:54)
[2019-06-22] MEDS: hydrALAZINE HCL 50 MG TABLET PO SCH ×2 (13:54→17:15)
--- NOTE | 2019-06-22 14:00 | NUR ---
tele underground repairer: nephro consult seen and examined by dr. weinstein at this time.
[2019-06-22 16:00] VITALS: BP 145/79
[2019-06-22] MEDS: HYDROMORPHONE INJ 2 MG/ML DISP.SYRIN IV PRN (17:14)
[2019-06-22] MEDS: ONDANSETRON HCL/PF 4 MG/2 ML VIAL IVP PRN (17:14)
--- NOTE | 2019-06-22 17:14 | NUR ---
tele multifocal button generator: notes c/o 10/17 abdominal pain and request for anti nausea with it. medicated with dilaudid 1mg and zofran 4mg ivp by rn. will continue to monitor. instructed to call for assistance.
[2019-06-22] MEDS: CARVEDILOL 12.5 MG TABLET PO SCH (17:15)
[2019-06-22] MEDS: CLONIDINE HCL 0.1 MG TABLET PO SCH (17:15)
[2019-06-22] MEDS: NIFEdipine XL (30MG) 30 MG TAB PO SCH (17:15)
[2019-06-22] MEDS: BLOOD SUGAR DIAGNOSTIC 1 EACH STRIP IN SCH ×2 (17:16→22:50)
--- NOTE | 2019-06-22 17:20 | NUR ---
tele brick veneer maker: notes pt check his own bs using his device and it's 172. insulin coverage held due to npo status, pt aware.
[2019-06-22] MEDS: INSULIN REGULAR, HUMAN 100 UNIT/ML 3 ML VIAL SQ PRN ×2 (17:25→22:52)
--- NOTE | 2019-06-22 17:44 | NUR ---
tele biomass technician: notes pt voided 850 ml of clear yellow urine. pt verbalized relief of pain. instructed to call for assistance. will continue to monitor.
--- NOTE | 2019-06-22 19:10 | NUR ---
CHIMNEY BUILDER BRICK NOTES RECEIVED PT IN BED AWAKE AND ABLE TO MAKE NEEDS KNOWN. PT A/O X3. RESPIRATIONS EVEN AND UNLABORED WITH NO S/S OF ACUTE DISTRESS OR SOB NOTED. NO COMPLAINTS OF PAIN AT THIS TIME. PT NOTED WITH LAC #18G PATENT AND INTACT INFUSING NS @100CC/HR. SAFETY MEASURES IN PLACE WITH BED IN LOWEST LOCKED POSITION WITH SIDE RAILS UPX 2. CALL LIGHT WITHIN REACH. WILL CONTINUE TO MONITOR.
--- NOTE | 2019-06-22 19:13 | NUR ---
tele japanese professor: notes report given to humberto (sharmaine) for continuity of care.
[2019-06-22 20:00] VITALS: BP 114/68
[2019-06-22] MEDS ORDERED: MEROPENEM 500 MG in IV NS 0.9% 50 ML IV SCH (21:00)
[2019-06-22] MEDS: METRONIDAZOLE 500MG/ NS 100ML 500 MG in PREMIX 1 EA IV SCH (21:33)
[2019-06-22] MEDS: INSULIN GLARGINE, 100 UNIT/ML CARTRIDGE SQ SCH (22:00)
[2019-06-22] MEDS ORDERED: FENOFIBRATE NANOCRYS (145 MG) 145 MG TABLET PO SCH (22:00)
[2019-06-22] MEDS: CLOPIDOGREL BISULFATE 75 MG TABLET PO SCH (22:50)
--- NOTE | 2019-06-22 22:50 | NUR ---
MILITARY NURSE NOTES PT USED SELF GLUCOSE DEVICE, BLOOD GLUCOSE 158. PT REFUSED INSULIN AT THIS TIME.
[2019-06-23] VITALS (7 sets, daily range): BP systolic 136–190; BP diastolic 75–89
[2019-06-23] MEDS: HYDROMORPHONE INJ 2 MG/ML DISP.SYRIN IV PRN ×6 (00:26→21:21)
[2019-06-23] MEDS: ONDANSETRON HCL/PF 4 MG/2 ML VIAL IVP PRN ×4 (00:26→20:55)
[2019-06-23] MEDS: IV NS 0.9% 1,000 ML IV PRN ×2 (00:37→12:10)
[2019-06-23] MEDS: METRONIDAZOLE 500MG/ NS 100ML 500 MG in PREMIX 1 EA IV SCH ×3 (05:25→21:24)
[2019-06-23] MEDS: BLOOD SUGAR DIAGNOSTIC 1 EACH STRIP IN SCH ×4 (06:59→21:37)
--- NOTE | 2019-06-23 06:59 | NUR ---
SPINNER TENDER NOTES PT USED SELF GLUCOSE DEVICE, BLOOD GLUCOSE 135. PT REFUSED INSULIN AT THIS TIME.
--- NOTE | 2019-06-23 07:22 | NUR ---
BUSINESS PROGRAMMER NOTES PT IN BED AWAKE AND ABLE TO MAKE NEEDS KNOWN. PT A/O X3. RESPIRATIONS EVEN AND UNLABORED WITH NO S/S OF ACUTE DISTRESS OR SOB NOTED THROUGHOUT SHIFT. NO COMPLAINTS OF PAIN AT THIS TIME. PT NOTED WITH LAC #18G PATENT AND INTACT INFUSING NS @100CC/HR. SAFETY MEASURES IN PLACE WITH BED IN LOWEST LOCKED POSITION WITH SIDE RAILS UPX 2. CALL LIGHT WITHIN REACH. WILL ENDORSE TO ONCOMING NURSE FOR BRIANNA.
--- NOTE | 2019-06-23 07:43 | NUR ---
TELE/RN OPENING NOTES RECEIVED PATIENT IN BED AWAKE AND ABLE TO MAKE NEEDS KNOWN. PATIENT A/O X3. RESPIRATIONS EVEN AND UNLABORED WITH NO S/S OF ACUTE DISTRESS OR SOB NOTED. COMPLAINED OF PAIN RATED 8/10 AT THIS TIME. PATIENT NOTED WITH LAC #18G PATENT AND INTACT INFUSING NS @100CC/HR. SAFETY MEASURES IN PLACE WITH BED IN LOWEST LOCKED POSITION WITH SIDE RAILS UPX 2. CALL LIGHT WITHIN REACH. WILL CONTINUE TO MONITOR.
[2019-06-23] MEDS: PANTOPRAZOLE 40 MG TABLET.DR PO SCH (08:00)
[2019-06-23] MEDS: ATORVASTATIN 10 MG TABLET PO SCH (08:40)
[2019-06-23] MEDS: ISOSORBIDE MONONITRATE (30MG) 30 MG TAB.SR.24H PO SCH (08:40)
[2019-06-23] MEDS: CARVEDILOL 12.5 MG TABLET PO SCH ×2 (08:40→16:42)
[2019-06-23] MEDS: NIFEdipine XL (30MG) 30 MG TAB PO SCH ×2 (08:41→16:41)
[2019-06-23] MEDS: LINAGLIPTIN 5 MG TABLET PO SCH (08:41)
[2019-06-23] MEDS: CLONIDINE HCL 0.1 MG TABLET PO SCH ×2 (08:41→16:42)
[2019-06-23] MEDS: hydrALAZINE HCL 50 MG TABLET PO SCH ×3 (08:42→16:42)
[2019-06-23 09:24] LABS: BASOPHILS # (AUTO) 0.1 /CMM (0.0-0.2); BASOPHILS % (AUTO) 0.5 % (0.0-2.0); EOSINOPHILS % (AUTO) 1.4 % (0.0-6.0); HEMATOCRIT 37 % (39-51); HEMOGLOBIN 12.2 g/dL (13.5-17.5); LYMPHOCYTES # (AUTO) 1.3 /CMM (0.8-4.8); LYMPHOCYTES % (AUTO) 7.7 % (20.0-44.0); MEAN CORPUSCULAR HGB CONC 33 g/dl (31.0-36.0); MEAN CORPUSCULAR VOLUME 92 fL (80-96); MONOCYTES # (AUTO) 2.7 /CMM (0.1-1.30); MONOCYTES % (AUTO) 16.4 % (2.0-12.0); NEUTROPHILS # (AUTO) 12.2 /CMM (1.8-8.9); PLATELET COUNT (AUTO) 221 /CMM (150-450); RED BLOOD CELL COUNT(AUTO) 4.02 MIL/uL (4.5-6.0); WHITE BLOOD COUNT (AUTO) 16.5 K/uL (4.3-11.0)
[2019-06-23] MEDS: HEPARIN SODIUM, PORCINE 5000 UNITS/1 ML VIAL SQ SCH ×2 (09:29→21:31)
[2019-06-23 09:45] LABS: CREATININE 4.1 mg/dL (0.6-1.3); MAGNESIUM 2.4 mg/dL (1.8-2.4); POTASSIUM 3.6 mmol/L (3.5-5.1)
[2019-06-23 09:53] LABS: THYROID STIMULATING HORMONE 1.295 uIU/mL (0.358-3.74)
--- NOTE | 2019-06-23 12:13 | NUR ---
MS/RN NOTS BS 143MG/DL INSULIN NOT GIVEN PATIENT IS ON NPO
[2019-06-23] MEDS: MEROPENEM 500 MG in IV NS 0.9% 50 ML IV SCH (12:52)
--- NOTE | 2019-06-23 12:53 | NUR ---
MS/RN NOTES DR. PAN ORDER CLEAR LIQUID DIET NOTED AND CARRIED OUT.
[2019-06-23] MEDS: INSULIN REGULAR, HUMAN 100 UNIT/ML 3 ML VIAL SQ PRN ×2 (17:42→21:35)
--- NOTE | 2019-06-23 19:11 | NUR ---
TELE/RN CLOSING NOTES PATIENT SLEEPING IN BED BUT EASILY AROUSABLE. PATIENT A/O X3. RESPIRATIONS EVEN AND UNLABORED WITH NO S/S OF ACUTE DISTRESS OR SOB NOTED. NO COMPLAINED OF AT THIS TIME. PATIENT NOTED WITH LAC #18G PATENT AND INTACT INFUSING NS @100CC/HR. SEEN AND EXAMINED BY MD WITH ORDERS MADE AND CARRIED OUT. SAFETY MEASURES IN PLACE WITH BED IN LOWEST LOCKED POSITION WITH SIDE RAILS UPX 2. CALL LIGHT WITHIN REACH. WILL ENDORSED TO PBX WIRE CHIEF FOR BRIANNA.
--- NOTE | 2019-06-23 19:30 | NUR ---
MS RN: RECEIVED PATIENT Patient in bed, awake, A/O x4. IVF infusing. Abdomen rounded, distended and firm, voicing his getting pain medication every 3 hours. Educate on pain scale and pain management, verbalized understanding. Fall precaution maintained.
[2019-06-23] MEDS: CLOPIDOGREL BISULFATE 75 MG TABLET PO SCH (21:28)
[2019-06-23] MEDS: INSULIN GLARGINE, 100 UNIT/ML CARTRIDGE SQ SCH (22:00)
[2019-06-24] MEDS: HYDROMORPHONE INJ 2 MG/ML DISP.SYRIN IV PRN ×9 (00:15→22:30)
[2019-06-24] MEDS: MEROPENEM 500 MG in IV NS 0.9% 50 ML IV SCH ×3 (00:17→23:55)
[2019-06-24] MEDS: ONDANSETRON HCL/PF 4 MG/2 ML VIAL IVP PRN ×4 (02:45→23:55)
[2019-06-24] MEDS: METRONIDAZOLE 500MG/ NS 100ML 500 MG in PREMIX 1 EA IV SCH ×3 (04:57→22:12)
[2019-06-24] MEDS: IV NS 0.9% 1,000 ML IV PRN ×2 (06:19→17:09)
[2019-06-24 06:22] LABS: BASOPHILS % (AUTO) 0.2 % (0.0-2.0); EOSINOPHILS % (AUTO) 1.2 % (0.0-6.0); HEMATOCRIT 35 % (39-51); HEMOGLOBIN 11.4 g/dL (13.5-17.5); LYMPHOCYTES # (AUTO) 1.1 /CMM (0.8-4.8); LYMPHOCYTES % (AUTO) 6.8 % (20.0-44.0); MEAN CORPUSCULAR HGB CONC 32 g/dl (31.0-36.0); MEAN CORPUSCULAR VOLUME 92 fL (80-96); MONOCYTES # (AUTO) 2.3 /CMM (0.1-1.30); MONOCYTES % (AUTO) 14.8 % (2.0-12.0); PLATELET COUNT (AUTO) 217 /CMM (150-450); RED BLOOD CELL COUNT(AUTO) 3.81 MIL/uL (4.5-6.0); WHITE BLOOD COUNT (AUTO) 15.5 K/uL (4.3-11.0)
[2019-06-24] MEDS: BLOOD SUGAR DIAGNOSTIC 1 EACH STRIP IN SCH ×4 (06:30→22:14)
[2019-06-24] MEDS: INSULIN REGULAR, HUMAN 100 UNIT/ML 3 ML VIAL SQ PRN ×4 (06:31→22:19)
[2019-06-24 06:38] LABS: ALANINE AMINOTRANSFERASE 17 U/L (12-78); ALBUMIN 2.2 g/dL (3.4-5.0); ALKALINE PHOSPHATASE 82 U/L (46-116); ASPARTATE AMINOTRANSFERASE 16 U/L (15-37); BILIRUBIN,TOTAL 0.3 mg/dL (0.2-1.0); CALCIUM, SERUM 9.1 mg/dL (8.5-10.1); CARBON DIOXIDE 26 mmol/L (21-32); CHLORIDE 96 mmol/L (98-107); CREATININE 3.6 mg/dL (0.6-1.3); GLUCOSE 269 mg/dL (74-106); LIPASE 1190 U/L (73-393); MAGNESIUM 2.5 mg/dL (1.8-2.4); PHOSPHORUS 3.5 mg/dL (2.5-4.9); POTASSIUM 3.7 mmol/L (3.5-5.1); SODIUM SERUM 134 mmol/L (136-145); TOTAL PROTEIN, SERUM 7.4 g/dL (6.4-8.2)
[2019-06-24 06:41] LABS: UREA NITROGEN, BLOOD 100 mg/dL (7-18)
--- NOTE | 2019-06-24 07:06 | NUR ---
MS RN: END OF SHIFT REPORT Patient in bed, A/O x4. IVF infusing, IV antibiotic as scheduled. Abdominal pain managed with PRN Dilaudid, nausea improved with PRN Zofran. GI following. Unable to collect stool specimen for Cdiff as patient has no BM this shift. Endorsed to RIVERA Coto for continuity of care.
[2019-06-24 08:00] VITALS: BP 165/81
--- NOTE | 2019-06-24 08:00 | NUR ---
MS RN NOTES PATIENT IN BED RESTING NO SOB OR ACUTE DISTRESS NOTED. PERIPHERAL IV INTACT PATENT. PATIENT ALERT, ORIENTED X4. BED IN LOW LOCKED POSITION CALL LIGHT WITHIN REACH. WILL CONTINUE TO MONITOR.
[2019-06-24] MEDS: NIFEdipine XL (30MG) 30 MG TAB PO SCH ×2 (08:57→17:10)
[2019-06-24] MEDS: hydrALAZINE HCL 50 MG TABLET PO SCH ×3 (08:58→17:10)
[2019-06-24] MEDS: ISOSORBIDE MONONITRATE (30MG) 30 MG TAB.SR.24H PO SCH (08:59)
[2019-06-24] MEDS: ATORVASTATIN 10 MG TABLET PO SCH (09:00)
[2019-06-24] MEDS: PANTOPRAZOLE 40 MG TABLET.DR PO SCH (09:00)
[2019-06-24] MEDS: CLONIDINE HCL 0.1 MG TABLET PO SCH ×2 (09:00→17:00)
[2019-06-24] MEDS: CARVEDILOL 12.5 MG TABLET PO SCH ×2 (09:00→17:10)
[2019-06-24] MEDS: LINAGLIPTIN 5 MG TABLET PO SCH (09:00)
[2019-06-24] MEDS: HEPARIN SODIUM, PORCINE 5000 UNITS/1 ML VIAL SQ SCH ×2 (09:02→22:37)
[2019-06-24 16:00] VITALS: BP 130/83
--- NOTE | 2019-06-24 18:51 | NUR ---
MS RN NOTES PATIENT IN BED RESTING NO SOB OR ACUTE DISTRESS NOTED. PATIENT ALERT, ORIENTED X4. ALL DUE MEDICATIONS ADMINISTERED. ALL NEEDS MET. PAIN CONTROLLED WITH MEDICATIONS. NO ACUTE CHANGES NOTED DURING SHIFT. WILL ENDORSE BRIANNA TO PM SHIFT.
[2019-06-24 20:00] VITALS: BP 160/87
[2019-06-24] MEDS: INSULIN GLARGINE, 100 UNIT/ML CARTRIDGE SQ SCH (22:18)
[2019-06-24] MEDS: CLOPIDOGREL BISULFATE 75 MG TABLET PO SCH (22:32)
[2019-06-25] MEDS: IV NS 0.9% 1,000 ML IV PRN ×2 (01:57→13:36)
[2019-06-25] MEDS: HYDROMORPHONE INJ 2 MG/ML DISP.SYRIN IV PRN ×6 (03:36→21:39)
[2019-06-25] MEDS: MAG HYDROX/AL HYDROX/SIMETH 30 ML UDC PO PRN (03:40)
--- NOTE | 2019-06-25 03:41 | NUR ---
dilaudid mom and mylanta administered prn. per patient request. patient reports pain 04/16 to abd patient c/o dyspepsia request mylanta patient complainng of constipation no bm since request mom
[2019-06-25] MEDS: METRONIDAZOLE 500MG/ NS 100ML 500 MG in PREMIX 1 EA IV SCH ×3 (05:42→21:15)
[2019-06-25] MEDS: BLOOD SUGAR DIAGNOSTIC 1 EACH STRIP IN SCH ×4 (06:31→21:50)
[2019-06-25] MEDS: INSULIN REGULAR, HUMAN 100 UNIT/ML 3 ML VIAL SQ PRN ×4 (06:33→21:44)
--- NOTE | 2019-06-25 07:51 | NUR ---
MS RN NOTES PATIENT IN BED RESTING NO SOB OR ACUTE DISTRESS NOTED. PATIENT ALERT, ORIENTED X4. PERIPHERAL IV INTACT PATENT. BED IN LOW LOCKED POSITION. CALL LIGHT WITHIN REACH. WILL CONTINUE TO MONITOR.
[2019-06-25] MEDS: ATORVASTATIN 10 MG TABLET PO SCH (08:30)
[2019-06-25] MEDS: ISOSORBIDE MONONITRATE (30MG) 30 MG TAB.SR.24H PO SCH (08:34)
[2019-06-25] MEDS: LINAGLIPTIN 5 MG TABLET PO SCH (08:35)
[2019-06-25] MEDS: PANTOPRAZOLE 40 MG TABLET.DR PO SCH (08:35)
[2019-06-25] MEDS: CLONIDINE HCL 0.1 MG TABLET PO SCH ×2 (08:35→17:31)
[2019-06-25] MEDS: hydrALAZINE HCL 50 MG TABLET PO SCH ×3 (08:35→17:31)
[2019-06-25] MEDS: NIFEdipine XL (30MG) 30 MG TAB PO SCH ×2 (08:36→17:32)
[2019-06-25] MEDS: CARVEDILOL 12.5 MG TABLET PO SCH ×2 (08:36→17:30)
[2019-06-25] MEDS: HEPARIN SODIUM, PORCINE 5000 UNITS/1 ML VIAL SQ SCH ×2 (08:38→21:15)
[2019-06-25] MEDS: MEROPENEM 500 MG in IV NS 0.9% 50 ML IV SCH ×2 (11:56→23:59)
--- NOTE | 2019-06-25 14:00 | NUR ---
MS STAFFORD NOTES PATIENTS MRCP WAS UNSUCCESSFUL, PATIENT DID NOT FIT IN THE MRI MACHINE. Addendum: 06/25/19 at 1941 by NISA REHMAN RN MD TAYLOR
[2019-06-25 14:53] LABS: BASOPHILS # (AUTO) 0.1 /CMM (0.0-0.2); BASOPHILS % (AUTO) 0.4 % (0.0-2.0); HEMATOCRIT 32 % (39-51); HEMOGLOBIN 10.5 g/dL (13.5-17.5); LYMPHOCYTES % (AUTO) 5.7 % (20.0-44.0); MEAN CORPUSCULAR HGB CONC 33 g/dl (31.0-36.0); MEAN CORPUSCULAR VOLUME 92 fL (80-96); MONOCYTES # (AUTO) 1.9 /CMM (0.1-1.30); MONOCYTES % (AUTO) 10.9 % (2.0-12.0); NEUTROPHILS # (AUTO) 14.5 /CMM (1.8-8.9); PLATELET COUNT (AUTO) 285 /CMM (150-450); WHITE BLOOD COUNT (AUTO) 17.7 K/uL (4.3-11.0)
[2019-06-25 15:11] LABS: BILIRUBIN,TOTAL 0.3 mg/dL (0.2-1.0); CALCIUM, SERUM 8.8 mg/dL (8.5-10.1); CREATININE 2.7 mg/dL (0.6-1.3); MAGNESIUM 2.6 mg/dL (1.8-2.4); PHOSPHORUS 2.3 mg/dL (2.5-4.9); POTASSIUM 3.5 mmol/L (3.5-5.1); TOTAL PROTEIN, SERUM 6.7 g/dL (6.4-8.2)
[2019-06-25 16:00] VITALS: BP 169/83
[2019-06-25] MEDS: ONDANSETRON HCL/PF 4 MG/2 ML VIAL IVP PRN ×2 (19:01→21:39)
--- NOTE | 2019-06-25 19:38 | NUR ---
MS RN NOTES PATIENT IN BED RESTING NO SOB OR ACUTE DISTRESS NOTED. NO ACUTE CHANGES NOTED DURING SHIFT. ALL DUE MEDICATIONS ADMINISTERED. ALL NEEDS MET. PAIN WAS CONTROLLED WITH MEDICATIONS. PATIENT TOLERATING DIET BETTER TODAY.
--- NOTE | 2019-06-25 19:54 | NUR ---
MS RN NOTES PATIENT RECEIVED IN BED SLEEPING EASILY AWAKEN BY NAME AND LIGHT TOUCH. ALERT AND ORIENTED X 4. PATIENT ON ROOM AIR WITH NO SIGNS OF RESPIRATORY DISTRESS AT THIS TIME, WITH EVEN NON-LABORED BREATHING. PATIENT IV ACCESS INTACT AND PATENT, INFUSING NORMAL SALINE AT 75ml/hr. PROVIDED COMFORT MEASURES TO PATIENT. SAFETY PRECAUTIONS IN PLACE WITH BED LOCKED, BED IN THE LOWEST POSITION, BILATERAL SIDE RAILS UP AND CALL LIGHT WITHIN EASY REACH OF THE PATIENT. WILL CONTINUE TO MONITOR PATIENT.
[2019-06-25 20:00] VITALS: BP 126/61
--- NOTE | 2019-06-25 21:39 | NUR ---
MS RN NOTES PATIENT STATING 8/10 SHARP ABDOMINAL PAIN. PATIENT REQUESTED PAIN MEDICATION. VITAL SIGNS WNL. ADMINISTERED PRN DILAUDID 1mg. PATIENT ALSO STATED HE FELT NAUSEA, NO EMESIS PRESENT. ADMINISTERED PRN ZOFRAN 8mg. WILL REASSESS PATIENT AND WILL CONTINUE TO MONITOR PATIENT.
[2019-06-25] MEDS: INSULIN GLARGINE, 100 UNIT/ML CARTRIDGE SQ SCH (21:43)
[2019-06-25] MEDS: CLOPIDOGREL BISULFATE 75 MG TABLET PO SCH (21:44)
--- NOTE | 2019-06-25 21:50 | NUR ---
MS RN NOTES PATIENT BLOOD SUGAR 261, ADMINISTERED LANTUS 124 UNITS SCHEDULE, AND ADMINISTERED 6 UNITS OF INSULIN PER SLIDING SCALE. PROVIDED JUICE TO THE PATIENT. WILL CONTINUE TO MONITOR PATIENT.
[2019-06-26] MEDS: HYDROMORPHONE INJ 2 MG/ML DISP.SYRIN IV PRN ×9 (00:39→23:28)
[2019-06-26] MEDS: METRONIDAZOLE 500MG/ NS 100ML 500 MG in PREMIX 1 EA IV SCH ×2 (04:15→12:58)
[2019-06-26 05:10] LABS: OCCULT BLOOD STOOL POSITIVE (NEGATIVE)
--- NOTE | 2019-06-26 06:59 | NUR ---
MS RN NOTES PATIENT IN BED SLEEPING, EASILY AWAKEN BY LIGHT TOUCH AND BY NAME. ON ROOM AIR WITH NO SIGNS OF RESPIRATORY DISTRESS AT THIS TIME, WITH NO SOB PRESENT, AND EVEN NON-LABORED BREATHING. PATIENT IV ACCESS INTACT AND PATENT. SKIN KEPT CLEAN AND DRY. MET ALL OF PATIENT NEEDS. PROVIDED COMFORT MEASURES TO PATIENT. SAFETY PRECAUTIONS IN PLACE WITH BED IN THE LOWEST POSITION, BED LOCKED, BILATERAL SIDE RAILS UP AND CALL LIGHT WITHIN EASY REACH OF THE PATIENT. WILL ENDORSE PLAN OF CARE TO UPCOMING DAYSHIFT NURSE.
[2019-06-26 07:30] LABS: BASOPHILS # (AUTO) 0.1 /CMM (0.0-0.2); BASOPHILS % (AUTO) 0.4 % (0.0-2.0); EOSINOPHILS % (AUTO) 0.9 % (0.0-6.0); HEMATOCRIT 32 % (39-51); HEMOGLOBIN 10.3 g/dL (13.5-17.5); LYMPHOCYTES % (AUTO) 5.9 % (20.0-44.0); MEAN CORPUSCULAR HGB CONC 33 g/dl (31.0-36.0); MEAN CORPUSCULAR VOLUME 91 fL (80-96); MONOCYTES # (AUTO) 1.6 /CMM (0.1-1.30); MONOCYTES % (AUTO) 9.6 % (2.0-12.0); NEUTROPHILS # (AUTO) 14.2 /CMM (1.8-8.9); NEUTROPHILS % (AUTO) 83.2 % (43.0-81.0); PLATELET COUNT (AUTO) 298 /CMM (150-450); RED BLOOD CELL COUNT(AUTO) 3.46 MIL/uL (4.5-6.0)
[2019-06-26 07:44] LABS: CALCIUM, SERUM 9.1 mg/dL (8.5-10.1); CREATININE 2.5 mg/dL (0.6-1.3); MAGNESIUM 2.7 mg/dL (1.8-2.4); PHOSPHORUS 1.9 mg/dL (2.5-4.9); POTASSIUM 3.6 mmol/L (3.5-5.1)
[2019-06-26] MEDS: PANTOPRAZOLE 40 MG TABLET.DR PO SCH (07:55)
[2019-06-26 08:00] VITALS: BP 162/83
--- NOTE | 2019-06-26 08:00 | NUR ---
MS RN OPENING NOTES RECEIVED PT IN BED, AWAKE ALERT AND ORIENTED X4. NO CARDIAC OR RESPIRATORY DISTRESS NOTED. NO SOB NOTED. SATURATING WELL ON ROOM AIR AT 97%. PT COMPLAINED OF ABD PAIN /. ADMINISTERED DILAUDID 1MG IV PUSH. WILL REASSESS IN A COUPLE OF MIN FOR EFFECTIVITY. PT IS AMBULATORY WITH STEADY GAIT. PLEASANT, MALE. PT CONTINUED TO BE ON CLEAR LIQUID DIET. BS CHECKED THIS AM, NOTED AT 77. NO INSULIN COVERAGE REQUIRED. PT EAT HIS BREAKFAST WITH SOME ORANGE JUICE. IV ACCESS NOTED ON L AC G20. WITH NS RUNNING AT 75ML/HR. TOLERATING IV FLUIDS WELL. NO S/S OF FLUID OVERLOAD. SAFETY PRECAUTIONS IN PLACE. BED LOCKED AND IN LOW POSITION. SIDE RAILS UP X2. CALL LIGHT WITHIN REACH. WILL CONT TO MONITOR.
[2019-06-26] MEDS: BLOOD SUGAR DIAGNOSTIC 1 EACH STRIP IN SCH ×4 (08:23→21:32)
[2019-06-26] MEDS: ATORVASTATIN 10 MG TABLET PO SCH (08:34)
[2019-06-26] MEDS: CLONIDINE HCL 0.1 MG TABLET PO SCH ×2 (08:34→16:42)
[2019-06-26] MEDS: ISOSORBIDE MONONITRATE (30MG) 30 MG TAB.SR.24H PO SCH (08:35)
[2019-06-26] MEDS: NIFEdipine XL (30MG) 30 MG TAB PO SCH ×2 (08:35→16:43)
[2019-06-26] MEDS: CARVEDILOL 12.5 MG TABLET PO SCH ×2 (08:35→16:43)
[2019-06-26] MEDS: hydrALAZINE HCL 50 MG TABLET PO SCH ×3 (08:35→16:44)
[2019-06-26] MEDS: HEPARIN SODIUM, PORCINE 5000 UNITS/1 ML VIAL SQ SCH (08:36)
[2019-06-26] MEDS: LINAGLIPTIN 5 MG TABLET PO SCH (08:36)
[2019-06-26] MEDS: ONDANSETRON HCL/PF 4 MG/2 ML VIAL IVP PRN ×2 (08:47→16:43)
[2019-06-26] MEDS ORDERED: K PHOS NEUTRAL 250 MG TABLET PO ONE (10:30)
[2019-06-26] MEDS: MEROPENEM 500 MG in IV NS 0.9% 50 ML IV SCH ×2 (11:53→23:28)
[2019-06-26] MEDS: IV NS 0.9% 1,000 ML IV PRN (12:11)
[2019-06-26 15:20] LABS: FERRITIN 404 ng/mL (8-388)
[2019-06-26 15:32] LABS: IRON, SERUM 21 ug/dl (50-175); TOTAL IRON BINDING CAPACITY 183 ug/dl (250-450)
[2019-06-26 16:26] VITALS: BP 142/96
[2019-06-26 19:30] VITALS: BP 153/82
--- NOTE | 2019-06-26 19:30 | NUR ---
MS RN CLOSING NOTES PT IN BED, ASLEEP AND RESTING COMFORTABLE IN BED. PT IS AROUSABLE. HE IS ALERT AND ORIENTED X4. NO CARDIAC OR RESPIRATORY DISTRESS NOTED. NO SOB NOTED. SATURATING WELL ON ROOM AIR AT 98%. PT HAD COMPLAINTS OF ABD PAIN THROUGHOUT THE SHIFT BUT WAS WELL MANAGED WITH IV DILAUDID 1MG PRN. HE STATES THAT IT WORKS WELL FOR HIS PAIN. PT ALSO STILL COMPLAINING OF NAUSEA BUT WAS MANAGED WITH IV ZOFRAN PRN. PT WAS THANKFUL FOR ALL THE CARE THAT HE RECEIVED THROUGHOUT THIS SHIFT. BS CHECKS DONE. NO COVERAGE PROVIDED HIS BS WERE STABLE. PT CONTINUED TO BE ON CLEAR LIQUID DIET. IV ACCESS NOTED ON L AC G20. WITH NS RUNNING AT 75ML/HR. TOLERATING IV FLUIDS WELL. NO S/S OF FLUID OVERLOAD. SAFETY PRECAUTIONS IN PLACE. BED LOCKED AND IN LOW POSITION. SIDE RAILS UP X2. CALL LIGHT WITHIN REACH. ENDORSED CARE TO NEXT SHIFT.
--- NOTE | 2019-06-26 19:35 | NUR ---
MS RN NOTES PATIENT IN BED, ASLEEP, EASILY AROUSED, ALERT AND ORIENTED X 4. BREATHING EVEN AND UNLABORED ON ROOM AIR. SHOWS NO SIGNS OF ACUTE RESPIRATORY DISTRESS, NO ACUTE PAIN. IV ON LAC 20G RUNNING NS AT 75ML/HR. SHOWS NO SIGNS OF INFILTRATION, NO REDNESS. SAFETY PRECAUTIONS IN PLACE. BED IN LOWEST POSITION, LOCKED, AND CALL LIGHT KEPT WITHIN REACH . WILL CONTINUE TO MONITOR.
[2019-06-26 20:00] VITALS: BP 153/82
--- NOTE | 2019-06-26 20:00 | NUR ---
MS RN NOTES PATIENT COMPLAINING OF PAIN 10/10. GIVEN PRN DILAUDID AT 2000. WILL CONTINUE TO MONITOR.
[2019-06-26] MEDS: CLOPIDOGREL BISULFATE 75 MG TABLET PO SCH (21:32)
[2019-06-26] MEDS: INSULIN GLARGINE, 100 UNIT/ML CARTRIDGE SQ SCH (21:37)
[2019-06-26] MEDS: INSULIN REGULAR, HUMAN 100 UNIT/ML 3 ML VIAL SQ PRN (21:38)
--- NOTE | 2019-06-26 23:28 | NUR ---
MS RN NOTES PATIENT COMPLAINING OF PAIN 10/10. GIVEN PRN DILAUDID. WILL CONTINUE TO MONITOR.
--- NOTE | 2019-06-26 23:33 | NUR ---
MS RN NOTES BG AT 2134 WAS 63. NO S/S OF HYPOGLYCEMIA. GAVE PT OJ WITH SUGAR. AT 2333 BG 163. NO COVERAGE GIVEN. PATIENT IS ON CLEAR LIQUIDS. WILL F/U IN AM GLUCOSE CHECK.
[2019-06-26] MEDS: MAG HYDROX/AL HYDROX/SIMETH 30 ML UDC PO PRN (23:46)
[2019-06-27] MEDS: HYDROMORPHONE INJ 2 MG/ML DISP.SYRIN IV PRN ×5 (03:31→22:31)
--- NOTE | 2019-06-27 03:31 | NUR ---
MS RN NOTES PATIENT COMPLAINING OF PAIN 10/10. GIVEN PRN DILAUDID AT 0331. WILL CONTINUE TO MONITOR.
[2019-06-27] MEDS: INSULIN REGULAR, HUMAN 100 UNIT/ML 3 ML VIAL SQ PRN ×4 (06:55→21:26)
[2019-06-27] MEDS: BLOOD SUGAR DIAGNOSTIC 1 EACH STRIP IN SCH ×4 (06:56→21:23)
--- NOTE | 2019-06-27 06:57 | NUR ---
MS RN NOTES PATIENT IN BED, ASLEEP, EASILY AROUSED, ALERT AND ORIENTED X 4. BREATHING EVEN AND UNLABORED ON ROOM AIR. SHOWS NO SIGNS OF ACUTE RESPIRATORY DISTRESS, NO ACUTE PAIN. IV ON LAC 20G RUNNING NS AT 75ML/HR. SHOWS NO SIGNS OF INFILTRATION, NO REDNESS. ALL DUE MEDICATIONS GIVEN. SAFETY PRECAUTIONS IN PLACE. BED IN LOWEST POSITION, LOCKED, AND CALL LIGHT KEPT WITHIN REACH . WILL ENDORSE TO ONCOMING NURSE.
--- NOTE | 2019-06-27 07:56 | NUR ---
MS RN OPENING NOTES PATIENT IN BED RESTING COMFORTABLY. PATIENT IN NO ACUTE DISTRESS. NO SOB NOTED. PATIENT BREATHING IS EVEN AND UNLABORED. PATIENT BED ALARM IS ON. SAFETY PRECAUTIONS IN PLACE. PATIENT BED IS LOCKED AND IN LOWEST POSITION. CALL LIGHT WITHIN REACH. WILL CONTINUE TO MONITOR.
[2019-06-27 08:00] VITALS: BP 159/79
--- NOTE | 2019-06-27 08:15 | NUR ---
MS RN NOTE PATIENT TEMPERATURE 99.4. IMPLEMENTED COOLING PRECAUTIONS. WILL CONTINUE TO MONITOR.
[2019-06-27 08:33] LABS: BASOPHILS % (AUTO) 0.2 % (0.0-2.0); EOSINOPHILS % (AUTO) 1.1 % (0.0-6.0); HEMATOCRIT 31 % (39-51); HEMOGLOBIN 10.4 g/dL (13.5-17.5); LYMPHOCYTES # (AUTO) 1.2 /CMM (0.8-4.8); LYMPHOCYTES % (AUTO) 7.6 % (20.0-44.0); MEAN CORPUSCULAR HGB CONC 33 g/dl (31.0-36.0); MEAN CORPUSCULAR VOLUME 91 fL (80-96); MONOCYTES # (AUTO) 1.6 /CMM (0.1-1.30); MONOCYTES % (AUTO) 10.2 % (2.0-12.0); NEUTROPHILS # (AUTO) 12.6 /CMM (1.8-8.9); NEUTROPHILS % (AUTO) 80.9 % (43.0-81.0); PLATELET COUNT (AUTO) 348 /CMM (150-450); RED BLOOD CELL COUNT(AUTO) 3.41 MIL/uL (4.5-6.0); WHITE BLOOD COUNT (AUTO) 15.5 K/uL (4.3-11.0)
[2019-06-27 08:34] LABS: CALCIUM, SERUM 8.6 mg/dL (8.5-10.1); CREATININE 2.2 mg/dL (0.6-1.3); PHOSPHORUS 2.5 mg/dL (2.5-4.9); POTASSIUM 3.7 mmol/L (3.5-5.1)
[2019-06-27] MEDS: CARVEDILOL 12.5 MG TABLET PO SCH ×2 (08:59→16:47)
[2019-06-27] MEDS: CLONIDINE HCL 0.1 MG TABLET PO SCH ×2 (08:59→16:46)
[2019-06-27] MEDS: hydrALAZINE HCL 50 MG TABLET PO SCH ×3 (08:59→16:46)
[2019-06-27] MEDS: ATORVASTATIN 10 MG TABLET PO SCH (09:00)
[2019-06-27] MEDS: NIFEdipine XL (30MG) 30 MG TAB PO SCH ×2 (09:00→16:46)
[2019-06-27] MEDS: LINAGLIPTIN 5 MG TABLET PO SCH (09:00)
[2019-06-27] MEDS: ISOSORBIDE MONONITRATE (30MG) 30 MG TAB.SR.24H PO SCH (09:00)
[2019-06-27] MEDS: PANTOPRAZOLE 40 MG TABLET.DR PO SCH (09:03)
[2019-06-27] MEDS: MEROPENEM 500 MG in IV NS 0.9% 50 ML IV SCH ×3 (11:52→23:29)
--- NOTE | 2019-06-27 11:58 | NUR ---
MS RN NOTE PATIENT BLOOD SUGAR 152. PATIENT REFUSING REGULAR INSULIN 2 UNITS PRN. EDUCATED RISKS VS BENEFITS. PATIENT CONTINUED TO REFUSE.
--- NOTE | 2019-06-27 12:04 | NUR ---
MS RN NOTE PATIENT REFUSING 1200 [employer] ANTIBIOTICS. EDUCATED RISKS VS BENEFITS. PATIENT CONTINUED TO REFUSE. MARILYN DAVIS MADE AWARE.
--- NOTE | 2019-06-27 13:31 | NUR ---
MS RN NOTE PATIENT TEMPERATURE 98.1. WILL CONTINUE TO MONITOR.
[2019-06-27] MEDS ORDERED: SOD FERRIC GLUC 125 MG in IV NS 0.9% 100 ML IV SCH (14:00)
[2019-06-27 16:00] VITALS: BP 164/82
--- NOTE | 2019-06-27 16:41 | NUR ---
MS RN NOTE PATIENT BLOOD SUGAR 161. PATIENT REFUSING 3 UNITS REGULAR INSULIN PRN DESPITE RISKS VS BENEFITS.
--- NOTE | 2019-06-27 19:37 | NUR ---
MS RN CLOSING NOTES PATIENT IN BED RESTING COMFORTABLY. PATIENT IN NO ACUTE DISTRESS. NO SOB NOTED. PATIENT BREATHING IS EVEN AND UNLABORED. PATIENT BED ALARM IS ON. HOB IS ELEVATED. PATIENT KEPT CLEAN, DRY AND COMFORTABLE THROUGHOUT SHIFT. NEEDS AND CONCERNS ADDRESSED. SAFETY PRECAUTIONS IN PLACE. PATIENT BED IS LOCKED AND IN LOWEST POSITION. CALL LIGHT WITHIN REACH. WILL ENDORSE CARE TO PM SHIFT FOR BRIANNA.
--- NOTE | 2019-06-27 19:50 | NUR ---
MS RN OPENING NOTES RECEIVED PATIENT FROM MORNING SHIFT, ALERT AND ORIENTED X 3. VERBALLY RESPONSIVE AND ABLE TO FOLLOW DIRECTIONS. BREATHING REGULAR AND UNLABORED ON ROOM AIR. LEFT AC G20 IV LINE INTACT AND PATENT FLUSHING WELL WITH NO BLEEDING OR S/S OF INFILTRATION NOTED. DENIES SUICIDAL IDEATION. COMPLAINED OF 8/10 ABDOMINAL PAIN; NON-PHARMACOLOGICAL INTERVENTIONS PROVIDED. BED LOW AND LOCKED ON SEMI FOWLERS POSITION. CALL LIGHT IN REACH. WILL CONTINUE TO MONITOR.
[2019-06-27 20:00] VITALS: BP 155/84
--- NOTE | 2019-06-27 20:00 | NUR ---
MS RN NOTES PATIENT COMPLAINED OF 8/10 ABDOMINAL PAIN, DILAUDID 1MG GIVEN VIA IV PUSH. NON-PHARMACOLOGICAL INTERVENTIONS PROVIDED. VITAL SIGNS WNL. WILL CONTINUE TO MONITOR.
--- NOTE | 2019-06-27 20:00 | NUR ---
MS RN NOTES PATIENT COMPLAINED OF 8/10 ABDOMINAL PAIN, DILAUDID 1MG GIVEN VIA IV PUSH. NON-PHARMACOLOGICAL INTERVENTIONS PROVIDED. VITAL SIGNS WNL. WILL CONTINUE TO MONITOR.
[2019-06-27] MEDS: CLOPIDOGREL BISULFATE 75 MG TABLET PO SCH (21:22)
[2019-06-27] MEDS: INSULIN GLARGINE, 100 UNIT/ML CARTRIDGE SQ SCH (21:23)
--- NOTE | 2019-06-27 22:00 | NUR ---
MS RN NOTES BS 225mg/dl, 124UNITS LANTUS AND 4UNITS REGULAR INSULIN GIVEN SQ. SITE ROTATED. SNACKS PROVIDED ON BEDSIDE. WILL CONTINUE TO MONITOR.
[2019-06-28] MEDS: HYDROMORPHONE INJ 2 MG/ML DISP.SYRIN IV PRN ×4 (01:36→13:42)
--- NOTE | 2019-06-28 06:25 | NUR ---
MS RN CLOSING NOTES PATIENT IN BED, ALERT AND ORIENTED X 3. AFEBRILE WITH NO S/S OF DISTRESS OBSERVED. LEFT AC G20 IV LINE PATENT AND FLUSHING WELL. NO COMPLAINTS OF PAIN.DISCOMFORT REPORTED AT THIS TIME. BED LOW AND LOCKED ON SEMI FOWLERS POSITION. CALL LIGHT IN REACH. WILL ENDORSE TO MORNING SHIFT FOR BRIANNA.
[2019-06-28] MEDS: BLOOD SUGAR DIAGNOSTIC 1 EACH STRIP IN SCH ×2 (06:39→11:42)
[2019-06-28] MEDS: INSULIN REGULAR, HUMAN 100 UNIT/ML 3 ML VIAL SQ PRN ×2 (06:41→11:41)
--- NOTE | 2019-06-28 07:10 | NUR ---
MS RN NOTES RECEIVED PATIENT IN BED ALERT AND AWAKE ORIENTED X4. HOB ELEVATED. NO SOB. LEFT AC G20 SL INTACT AND PATENT. AMBULATORY WITH STEADY GAIT. BED IN LOWEST POSITION, LOCKED. BED ALARM ON. CALL LIGHT WITHIN REACH. ABLE TO VERBALIZE NEEDS.
[2019-06-28 08:00] VITALS: BP 174/69
[2019-06-28] MEDS: PANTOPRAZOLE 40 MG TABLET.DR PO SCH (08:14)
[2019-06-28] MEDS: LINAGLIPTIN 5 MG TABLET PO SCH (08:45)
[2019-06-28] MEDS: ATORVASTATIN 10 MG TABLET PO SCH (08:45)
[2019-06-28] MEDS: hydrALAZINE HCL 50 MG TABLET PO SCH ×2 (08:46→13:41)
[2019-06-28] MEDS: CLONIDINE HCL 0.1 MG TABLET PO SCH (08:46)
[2019-06-28] MEDS: ISOSORBIDE MONONITRATE (30MG) 30 MG TAB.SR.24H PO SCH (08:47)
[2019-06-28] MEDS: NIFEdipine XL (30MG) 30 MG TAB PO SCH (08:47)
[2019-06-28] MEDS: CARVEDILOL 12.5 MG TABLET PO SCH (08:47)
[2019-06-28] MEDS: MEROPENEM 500 MG in IV NS 0.9% 50 ML IV SCH (11:42)
[2019-06-28 13:41] VITALS: BP 155/81
[2019-06-28] MEDS ORDERED: ONDA4TAB5 PO (15:33)
[2019-06-28] MEDS ORDERED: METR500T PO (15:33)
[2019-06-28] MEDS ORDERED: HYDR-4354 PO (15:33)
--- NOTE | 2019-06-28 16:04 | NUR ---
MS RN NOTES RECEIVED FERLICIT FROM PHARMACY. PATIENT READY TO LEAVE AND WANTS TO GO HOME
--- NOTE | 2019-06-28 16:45 | NUR ---
MS RN NOTES PATIENT FOR DISCHARGE. DISCHARGE INSTRUCTIONS, EDUCATION AND DISCHARGE PACKET GIVEN TO PATIENT. ALERT AND ORIENTED X4. DENIES ANY C/O PAIN NOR DISCOMFORT AND DENIES ANY C/O ABDOMINAL PAIN WHEN ASKED PRIOR TO DISCHARGE. IV ACCESS REMOVED WITH CATHETER TIP INTACT WITH GAUZE DRESSING IN PLACE. ALL BELONGINGS ACCOUNTED FOR. PATIENT PICKED UP BY FAMILY FRIEND VIA PRIVATE VEHICLE AND LEFT IN STABLE CONDITION.
== END 2019-06-28 16:30 | disposition home or self-care (01) | DRG 871 ==
LOC: ER 09:32 → MED 11:32 → TELE 12:17 → MED 06-23 09:55
PROVIDERS: ADMIT Nurse Practitioner Acute Care; ATTEND Nurse Practitioner Acute Care
DX: A41.9 Sepsis, unspecified organism (principal); N17.0 Acute kidney failure with tubular necrosis; K85.10 Biliary acute pancreatitis without necrosis or infection; E87.1 Hypo-osmolality and hyponatremia; I25.10 Atherosclerotic heart disease of native coronary artery without angina pectoris; Z95.1 Presence of aortocoronary bypass graft; E11.22 Type 2 diabetes mellitus with diabetic chronic kidney disease; E78.5 Hyperlipidemia, unspecified; I69.80 Unspecified sequelae of other cerebrovascular disease; F17.210 Nicotine dependence, cigarettes, uncomplicated; D72.829 Elevated white blood cell count, unspecified; E66.9 Obesity, unspecified; Z68.38 Body mass index [BMI] 38.0-38.9, adult; E86.1 Hypovolemia; G47.33 Obstructive sleep apnea (adult) (pediatric); K80.20 Calculus of gallbladder without cholecystitis without obstruction; D64.9 Anemia, unspecified; K66.0 Peritoneal adhesions (postprocedural) (postinfection); K52.9 Noninfective gastroenteritis and colitis, unspecified; I12.9 Hypertensive chronic kidney disease with stage 1 through stage 4 chronic kidney disease, or unspecified chronic kidney disease; N18.9 Chronic kidney disease, unspecified
CPT/HCPCS: 36415; 71045-TC; 74018; 80048-TC; 80053-TC; 80061-TC; 80076-TC; 80305; 81000-TC; 82272-TC; 82728-TC; 82962-TC; 83540-TC; 83605-TC; 83690-TC; 83735-TC; 84100-TC; 84443-TC; 84484-TC; 85025-TC; 85730-TC; 87040-TC; 87081-TC; 93307-TC; A4216; G0378; J1170; J1644; J1815; J2185; J2270; J2405; J2543; J2916; J7030; J7060

== ENCOUNTER 2020-07-22 11:08 | Outpatient (CLI) | payer MEDICARE, MEDICAID ==
[~2020-07-22 11:08] MED LIST changes: -ASPI-1169 PO; -CIPR-262 PO; +CLON0.3T PO; +HYDR-4354 PO; -HYDR-4384 PO; -ISOS30TA6 PO; +ISOS30TA86 PO; -LOSA25TA27 PO; -OMEG1CAP PO; +ONDA4TAB5 PO; +SPIR50TA5 PO
== END 2020-07-22 23:59 | disposition home or self-care (01) ==
LOC: CT 11:08
PROVIDERS: ATTEND Internal Medicine Interventional Cardiology
DX: K80.20 Calculus of gallbladder without cholecystitis without obstruction (principal); I70.0 Atherosclerosis of aorta; Z90.49 Acquired absence of other specified parts of digestive tract

== ENCOUNTER → 2020-08-05 | Day surgery (SDC) | payer MEDICARE, OTHER ==
[~2020-08-05] VITALS: Ht 185.4 cm; Wt 133.8 kg
[~2020-08-05] MED LIST changes: +ASPI-1169 PO; +FENTANYL PF 100MCG/2ML AMPUL ONE; +HEPARIN SODIUM, PORCINE 5000 UNITS/1 ML VIAL ONE; +IODIXANOL 150 ML IV ONE; +IODIXANOL 320MG/ML 50 ML IV ONE; +IV NS 0.9% 1,000 ML ONE; +LIDOCAINE HCL/PF 1% 30 ML SDV ONE; +MIDAZOLAM HCL 2 MG/2ML VIAL ONE
[2020-08-05 12:25] VITALS: BP 134/67
== END | disposition home or self-care (01) ==
LOC: CATHLAB 11:20
PROVIDERS: ATTEND Internal Medicine
DX: I11.0 Hypertensive heart disease with heart failure (principal); I50.9 Heart failure, unspecified; E11.9 Type 2 diabetes mellitus without complications; Z79.899 Other long term (current) drug therapy; Z98.890 Other specified postprocedural states
CPT/HCPCS: 36415; 37248; 85730; 87426; C1725 ×2; C1894; C9803; J1644 ×2; J3490; Q9967 ×2; 75630-TC; J2250; J3010

== ENCOUNTER 2020-08-28 14:16 | Outpatient (CLI) | payer MEDICARE, OTHER ==
[~2020-08-28 14:16] MED LIST changes: -FENTANYL PF 100MCG/2ML AMPUL ONE; -HEPARIN SODIUM, PORCINE 5000 UNITS/1 ML VIAL ONE; -IODIXANOL 150 ML IV ONE; -IODIXANOL 320MG/ML 50 ML IV ONE; -IV NS 0.9% 1,000 ML ONE; -LIDOCAINE HCL/PF 1% 30 ML SDV ONE; -MIDAZOLAM HCL 2 MG/2ML VIAL ONE
[2020-08-28 15:45] LABS: BASOPHILS # (AUTO) 0.1 K/uL (0.0-0.2); BASOPHILS % (AUTO) 0.8 % (0.0-2.0); EOSINOPHILS % (AUTO) 4.8 % (0.0-6.0); HEMATOCRIT 49 % (39-51); HEMOGLOBIN 15.9 g/dL (13.5-17.5); LYMPHOCYTES # (AUTO) 2.1 K/uL (0.8-4.8); MEAN CORPUSCULAR HGB CONC 33 g/dl (31.0-36.0); MEAN CORPUSCULAR VOLUME 94 fL (80-96); MONOCYTES # (AUTO) 0.9 K/uL (0.1-1.30); MONOCYTES % (AUTO) 9.8 % (2.0-12.0); NEUTROPHILS # (AUTO) 5.3 K/uL (1.8-8.9); NEUTROPHILS % (AUTO) 60.6 % (43.0-81.0); PLATELET COUNT (AUTO) 222 K/uL (150-450); RED BLOOD CELL COUNT(AUTO) 5.22 MIL/uL (4.5-6.0); WHITE BLOOD COUNT (AUTO) 8.7 K/uL (4.3-11.0)
[2020-08-28 15:54] LABS: CREATININE 2.8 mg/dL (0.6-1.3); POTASSIUM 4.6 mmol/L (3.5-5.1)
== END 2020-08-28 23:59 | disposition home or self-care (01) ==
LOC: LAB 14:16
PROVIDERS: ATTEND Internal Medicine Interventional Cardiology
DX: E11.69 Type 2 diabetes mellitus with other specified complication (principal); Z79.01 Long term (current) use of anticoagulants
CPT/HCPCS: 36415; 80048-TC; 85025-TC; 85730-TC

== ENCOUNTER 2020-08-29 13:40 | Outpatient (CLI) | payer MEDICARE, OTHER | END 2020-08-29 23:59 | disposition home or self-care (01) | LOC: LAB 13:40 | PROVIDERS: ATTEND Internal Medicine | DX: Z01.812 Encounter for preprocedural laboratory examination (principal); Z20.822 Contact with and (suspected) exposure to COVID-19 | CPT/HCPCS: C9803; U0003 ==

== ENCOUNTER 2020-09-02 11:32 | Day surgery (SDC) | payer MEDICARE, OTHER ==
[2020-09-02] VITALS (8 sets, daily range): BP systolic 116–144; BP diastolic 69–82
[~2020-09-02] VITALS: Ht 185.4 cm; Wt 136.1 kg
[2020-09-02] MEDS ORDERED: IV NS 0.9% 1,000 ML ONE (12:18)
[2020-09-02] MEDS ORDERED: IODIXANOL 300 ML IV ONE (12:19)
[2020-09-02] MEDS ORDERED: FENTANYL PF 100MCG/2ML AMPUL ONE (12:19)
[2020-09-02] MEDS ORDERED: MIDAZOLAM HCL 2 MG/2ML VIAL ONE (12:20)
[2020-09-02] MEDS ORDERED: LIDOCAINE HCL/PF 1% 30 ML SDV ONE (12:37)
[2020-09-02] MEDS ORDERED: HEPARIN SODIUM, PORCINE 5000 UNITS/1 ML VIAL ONE (13:23)
--- NOTE | 2020-09-02 14:40 | NUR ---
m/s studio model: post op received pt from optical laboratory manager via mera with dx: s/p Ultrasound-guided access of the left popliteal vein. Intravascular [place] assessment of the left common iliac vein and the common femoral veins. SOCIAL MEDIA COMMUNITY MANAGER of the left iliac veins and left common femoral vein. Left lower extremity venogram. dressing in place, no discharge/drainage noted. immobilizer ordered.
--- NOTE | 2020-09-02 15:00 | NUR ---
m/s track service person: notes resting comfortable in bed. no distress noted. vss. left knee immobilizer applied as ordered. dressing remains intact with no oozing/bleeding noted. will continue to monitor. Addendum: 09/02/20 at 1718 by LORY JOLLEY HOE RUNNER sounds asleep, but arousable.
--- NOTE | 2020-09-02 17:15 | NUR ---
m/s costing analyst: notes tonia (friend) here visiting and she will take him home this evening. pt vital signs remains stable. left knee immobilizer in place. no distress noted. sleeping at interval, but arousable.
--- NOTE | 2020-09-02 18:10 | NUR ---
m/s hair clipper power: notes pt awake at this time. assisted to bathroom and voided. left knee immobilizer remains in place. dressing remains intact with no oozing/bleeding noted. pt for d'c this evening. vss stable.
--- NOTE | 2020-09-02 18:45 | NUR ---
m/s returned item clerk: notes discharge instruction given to pt and verbalized understanding. h/l removed with tip intact.
--- NOTE | 2020-09-02 18:50 | NUR ---
m/s quality assurance clerk: discharge discharge home accompanied by friend via private car in stable condition with all valuables and d'c papers.
== END 2020-09-02 23:59 | disposition home or self-care (01) ==
LOC: CATHLAB 11:32 → UNDOADMIN 14:23 → MED 14:23 → UNDODISIN 18:51 → CATHLAB 23:59
PROVIDERS: ATTEND Internal Medicine
DX: I87.2 Venous insufficiency (chronic) (peripheral) (principal); I82.422 Acute embolism and thrombosis of left iliac vein; I82.412 Acute embolism and thrombosis of left femoral vein; E11.51 Type 2 diabetes mellitus with diabetic peripheral angiopathy without gangrene; I11.0 Hypertensive heart disease with heart failure; I50.9 Heart failure, unspecified; Z98.890 Other specified postprocedural states; Z79.899 Other long term (current) drug therapy
CPT/HCPCS: 37248; 37249 ×2; 37252; 75630; 99152; 99153; C1725 ×2; C1753; C1887; C1894; J1644 ×2; J2250; J3010; J3490; J7030; Q9967; G0378; G0500

== ENCOUNTER 2022-04-09 12:25 | Inpatient (IN) | payer MEDICARE, OTHER ==
[~2022-04-09] VITALS: Ht 185.4 cm; Wt 132.4 kg
--- NOTE | 2022-04-09 12:50 | NUR ---
RECEIVING PT 51 YRS MALE CAME FROM HOME FROM GUITAR REPAIR TECHNICIAN WITH REFERALE AND EVALUATION GANGRAIN ON MEDLEL TOE GOT WORSE LAST 2 DAYD
--- NOTE | 2022-04-09 12:55 | NUR ---
SEEN BY DR. AYON AT BED SIDE
--- NOTE | 2022-04-09 12:56 | NUR ---
SUBMITTED ADMISSIONS PAPERWORK.
[2022-04-09] MEDS ORDERED: PIPERACILLIN /TAZOBACTAM 3.375 G in IV D5W 50 ML IV ONE (13:00)
[2022-04-09] MEDS ORDERED: VANCOMYCIN 1 GM in IV D5W 250 ML IV ONE (13:00)
[2022-04-09] MEDS ORDERED: IV NS 0.9% 1,000 ML BAG IV ONE (13:00)
[2022-04-09] MEDS ORDERED: MORPHINE SULFATE INJ 2 MG/ML DISP.SYRIN IV ONE (13:00)
--- NOTE | 2022-04-09 13:20 | NUR ---
COVID SWAB SENT TO LAB
[2022-04-09] MEDS ORDERED: MORPHINE SULFATE INJ 4 MG/ML DISP.SYRIN ONE (13:21)
--- NOTE | 2022-04-09 13:22 | NUR ---
PAGED [facility], WAITING FOR CALLBACK FROM DR. JARVIS
[2022-04-09 13:24] LABS: BASOPHILS # (AUTO) 0.1 K/uL (0.0-0.2); BASOPHILS % (AUTO) 1.1 % (0.0-2.0); EOSINOPHILS % (AUTO) 1.8 % (0.0-6.0); HEMATOCRIT 42 % (39-51); HEMOGLOBIN 13.2 g/dL (13.5-17.5); LYMPHOCYTES # (AUTO) 2.1 K/uL (0.8-4.8); LYMPHOCYTES % (AUTO) 16.9 % (20.0-44.0); MEAN CORPUSCULAR HGB CONC 32 g/dl (31.0-36.0); MEAN CORPUSCULAR VOLUME 95 fL (80-96); MONOCYTES % (AUTO) 8.1 % (2.0-12.0); NEUTROPHILS # (AUTO) 8.8 K/uL (1.8-8.9); NEUTROPHILS % (AUTO) 72.1 % (43.0-81.0); PLATELET COUNT (AUTO) 319 K/uL (150-450); RED BLOOD CELL COUNT(AUTO) 4.38 MIL/uL (4.5-6.0); WHITE BLOOD COUNT (AUTO) 12.1 K/uL (4.3-11.0)
--- NOTE | 2022-04-09 13:24 | NUR ---
DR. SONIA MELLO, URBAN PLANNER, PHONE #[phone] FAX #[phone]
[2022-04-09 13:43] LABS: ALBUMIN 3.3 g/dL (3.4-5.0); BILIRUBIN,DIRECT 0.2 mg/dL (0.0-0.2); BILIRUBIN,TOTAL 0.4 mg/dL (0.2-1.0); CALCIUM, SERUM 9.7 mg/dL (8.5-10.1); CREATININE 3.5 mg/dL (0.6-1.3); TOTAL PROTEIN, SERUM 8.2 g/dL (6.4-8.2)
--- NOTE | 2022-04-09 13:46 | NUR ---
BUN 88
[2022-04-09] MEDS ORDERED: HYDROMORPHONE 1 MG/1 ML DISP.SYRIN IV ONE (14:00)
[2022-04-09] MEDS ORDERED: HYDROMORPHONE 1 MG/1 ML DISP.SYRIN ONE (14:07)
--- NOTE | 2022-04-09 15:36 | NUR ---
NOTIFIED DR PEREZ @ [phone] OF PT DX
[2022-04-09] MEDS ORDERED: ONDANSETRON HCL/PF 4 MG/2 ML VIAL IVP PRN (16:00)
[2022-04-09] MEDS ORDERED: MAGNESIUM HYDROXIDE 30 ML UDC PO PRN (16:00)
[2022-04-09] MEDS ORDERED: Z GUARD REMEDY 4 OZ OINT TP PRN (16:00)
[2022-04-09] MEDS ORDERED: MAG HYDROX/AL HYDROX/SIMETH 30 ML UDC PO PRN (16:00)
[2022-04-09] MEDS ORDERED: DEXTROSE 50%-WATER 50 ML DISP.SYRIN IV PRN (16:00)
[2022-04-09] MEDS ORDERED: ACETAMINOPHEN 325 MG TABLET PO PRN (16:00)
--- NOTE | 2022-04-09 16:05 | NUR ---
can be transfer to room 106 after MD presented the patient , admitting informed,
[2022-04-09] MEDS ORDERED: INSULIN DEGLUDEC 62 UNIT SQ SCH (17:00)
--- NOTE | 2022-04-09 17:15 | NUR ---
RESTING AT THIS TIME
--- NOTE | 2022-04-09 18:09 | NUR ---
report given to Kelli STAFFORD for inpatient admission.
--- NOTE | 2022-04-09 18:09 | NUR ---
RN NOTE RECEIVED REPORT FROM RIVERA CUNHA. PATIENT WILL BE TRANSPORTED TO ROOM 106.
--- NOTE | 2022-04-09 18:18 | NUR ---
UA SENT TO LAB
[2022-04-09] MEDS: BLOOD SUGAR DIAGNOSTIC 1 EACH STRIP VI SCH ×2 (18:27→22:00)
--- NOTE | 2022-04-09 18:28 | NUR ---
ACCU CHECK DONE 120
[2022-04-09] MEDS: IV NS 0.9% 1,000 ML IV PRN (19:35)
[2022-04-09] MEDS: ZOSYN IVPB 2.25 G in IV D5W 50ml IV SCH (19:36)
--- NOTE | 2022-04-09 19:40 | NUR ---
MS RIVERA OPENING NOTES RECEIVED PATIENT IS SLEEPING IN BED, EASILY BEING AROUSED. HE IS ALERT AND ORIENTED, A/O X 4. PT IS ON RA, BREATHING EVEN AND UNLABORED, NO SIGNS OF DISTRESS OR SOB NOTED AT THIS TIME. PT DENIES OF HAVING PAIN AT THIS MOMENT. IV ACCESS R HAND, #20G, RUNNING NS @ 75 ML/HR. IV SITE IS PATENT AND INTACT. SAFETY MEASURES ARE IN PLACE: BED IN LOWEST AND LOCKED POSITION; SIDE RAILS UP X 2; BED ALARM IS SET; CALL LIGHT AND TRAY ARE WITHIN EASY REACH. WILL CONTINUE WITH THE PLAN OF CARE.. Addendum: 04/13/22 at 0739 by RONNIE RENEE RN WRONG DATE ENTRY
--- NOTE | 2022-04-09 19:56 | NUR ---
RN NOTE PATIENT IS AOX4, BROUGHT IN VIA GURNEY BY RIVERA NEGRETE FROM ED. PATIENT IS ABLE TO AMBULATE BUT NEEDS ASSISTANCE AT THIS TIME DUE TO HIS GANGRENE ON RIGHT FOURTH TOE. TOOK PICTURE AND PLACED IN CHART. REFERRED TO WOUND CONSULT. PATIENT STATED PATIENT DENIES PAIN ANYWHERE ELSE. PATIENT BELONGINGS FORM SIGNED. URINAL AT BEDSIDE. EDUCATED PATIENT TO UTILIZE CALL LIGHT AND ASK FOR NURSE. IV ACCESS ON RFA #20G RUNNING NS AT 75 MLS/ HR AND IVPB ZOSYN AT 100MLS AT THIS TIME. VITALS TAKEN: BP: 143/74 RR:20 ORAL TEMP: 98.4F; HR 73, AND BREATHING ON ROOM AIR AT 97%. ALL SAFETY MEASURES IN PLACE, BED LOCKED IN LOWEST POSITION WILL ENDORSE CONTINUITY OF CARE TO [employer]CHO[employer] SOCIAL SCIENCE TEACHER. DAUGHTER'S NAME GERRI .
[2022-04-09 20:00] VITALS: BP 125/44
[2022-04-09] MEDS: HYDROMORPHONE 1 MG/1 ML DISP.SYRIN IV PRN (20:31)
[2022-04-09] MEDS: ATORVASTATIN 40 MG TABLET PO SCH (21:10)
[2022-04-09] MEDS ORDERED: CLOPIDOGREL BISULFATE 75 MG TABLET PO SCH (22:00)
[2022-04-10] MEDS: ZOSYN IVPB 2.25 G in IV D5W 50ml IV SCH ×4 (01:38→19:17)
[2022-04-10] MEDS: HYDROMORPHONE 1 MG/1 ML DISP.SYRIN IV PRN ×5 (01:39→23:13)
[2022-04-10 04:00] VITALS: BP 125/59
[2022-04-10 06:33] LABS: BASOPHILS % (AUTO) 0.3 % (0.0-2.0); EOSINOPHILS % (AUTO) 2.3 % (0.0-6.0); HEMATOCRIT 41 % (39-51); HEMOGLOBIN 13.2 g/dL (13.5-17.5); LYMPHOCYTES # (AUTO) 1.2 K/uL (0.8-4.8); LYMPHOCYTES % (AUTO) 14.1 % (20.0-44.0); MEAN CORPUSCULAR HGB CONC 32 g/dl (31.0-36.0); MEAN CORPUSCULAR VOLUME 96 fL (80-96); MONOCYTES # (AUTO) 0.8 K/uL (0.1-1.30); MONOCYTES % (AUTO) 8.7 % (2.0-12.0); NEUTROPHILS # (AUTO) 6.4 K/uL (1.8-8.9); NEUTROPHILS % (AUTO) 74.6 % (43.0-81.0); PLATELET COUNT (AUTO) 304 K/uL (150-450); WHITE BLOOD COUNT (AUTO) 8.6 K/uL (4.3-11.0)
--- NOTE | 2022-04-10 06:43 | NUR ---
pt wanted his medication early md called no response from the md ,However meds given a few minutes befor due .upon entering the room pt was sound asleep.pt was awkend and pain meds given in the presence of the charge time accompanied by charge nurse. reablement done on pt Twice and pt was snoring . pt appears to be in no distress at this time.report given to oncoming rn,
--- NOTE | 2022-04-10 07:00 | NUR ---
RECEIVED PT IN BED, A/O x 4, SAT 98% ON RA. IV ACCESS LEFT UA MIDLINE, FLUSHES WELL. PT USING URINAL, NO C/O AT THIS TIME,
[2022-04-10 07:06] LABS: CALCIUM, SERUM 9.7 mg/dL (8.5-10.1); CREATININE 3.2 mg/dL (0.6-1.3); MAGNESIUM 2.5 mg/dL (1.8-2.4); PHOSPHORUS 4.4 mg/dL (2.5-4.9); POTASSIUM 4.2 mmol/L (3.5-5.1)
[2022-04-10] MEDS: PANTOPRAZOLE 40 MG TABLET.DR PO SCH (07:57)
[2022-04-10] MEDS: BLOOD SUGAR DIAGNOSTIC 1 EACH STRIP VI SCH ×4 (07:57→22:54)
[2022-04-10] MEDS ORDERED: oxyCODONE/APAP (5/325 MG) 1 UDTAB TABLET PO PRN (08:00)
[2022-04-10] MEDS: INSULIN REGULAR, HUMAN 100 UNIT/ML 3 ML VIAL SQ PRN ×3 (08:08→23:01)
[2022-04-10] MEDS ORDERED: ASPIRIN 81 MG TAB.CHEW PO SCH (09:00)
[2022-04-10] MEDS: CARVEDILOL 12.5 MG TABLET PO SCH ×2 (09:09→17:33)
[2022-04-10] MEDS: NIFEdipine XL (30MG) 30 MG TAB PO SCH ×2 (09:09→17:34)
[2022-04-10] MEDS: SPIRONOLACTONE 25 MG TABLET PO SCH (09:10)
[2022-04-10] MEDS: hydrALAZINE HCL 50 MG TABLET PO SCH ×3 (09:10→17:32)
[2022-04-10] MEDS: CLONIDINE HCL 0.1 MG TABLET PO SCH ×2 (09:11→17:33)
[2022-04-10] MEDS: INSULIN GLARGINE, 100 UNIT/ML CARTRIDGE SQ SCH ×2 (09:17→17:40)
[2022-04-10 12:00] VITALS: BP 138/75
[2022-04-10 20:00] VITALS: BP 128/89
[2022-04-10] MEDS: ATORVASTATIN 40 MG TABLET PO SCH (22:54)
[2022-04-11] MEDS: ZOSYN IVPB 2.25 G in IV D5W 50ml IV SCH ×4 (01:16→19:37)
[2022-04-11] MEDS: VANCOMYCIN 1.5 GM in IV D5W 500ml IV SCH (01:19)
[2022-04-11 06:33] LABS: BASOPHILS % (AUTO) 0.3 % (0.0-2.0); EOSINOPHILS % (AUTO) 3.8 % (0.0-6.0); HEMATOCRIT 40 % (39-51); HEMOGLOBIN 12.7 g/dL (13.5-17.5); LYMPHOCYTES # (AUTO) 1.8 K/uL (0.8-4.8); LYMPHOCYTES % (AUTO) 17.8 % (20.0-44.0); MEAN CORPUSCULAR HGB CONC 32 g/dl (31.0-36.0); MEAN CORPUSCULAR VOLUME 95 fL (80-96); MONOCYTES # (AUTO) 0.9 K/uL (0.1-1.30); MONOCYTES % (AUTO) 8.5 % (2.0-12.0); NEUTROPHILS # (AUTO) 7.1 K/uL (1.8-8.9); NEUTROPHILS % (AUTO) 69.6 % (43.0-81.0); PLATELET COUNT (AUTO) 317 K/uL (150-450); RED BLOOD CELL COUNT(AUTO) 4.15 MIL/uL (4.5-6.0); WHITE BLOOD COUNT (AUTO) 10.2 K/uL (4.3-11.0)
[2022-04-11 06:49] LABS: CALCIUM, SERUM 9.8 mg/dL (8.5-10.1); POTASSIUM 4.3 mmol/L (3.5-5.1)
[2022-04-11] MEDS: HYDROMORPHONE 1 MG/1 ML DISP.SYRIN IV PRN ×2 (06:57→22:39)
--- NOTE | 2022-04-11 07:43 | NUR ---
Pt. had on eventful night. Medicated x 2 with dilaudid as ordered. Endorsed to oncoming RN.
[2022-04-11] MEDS: BLOOD SUGAR DIAGNOSTIC 1 EACH STRIP VI SCH ×4 (07:52→21:47)
[2022-04-11 08:00] VITALS: BP 155/86
[2022-04-11] MEDS: CLONIDINE HCL 0.1 MG TABLET PO SCH ×2 (08:06→16:09)
[2022-04-11] MEDS: PANTOPRAZOLE 40 MG TABLET.DR PO SCH (08:06)
[2022-04-11] MEDS: NIFEdipine XL (30MG) 30 MG TAB PO SCH ×2 (08:06→16:09)
[2022-04-11] MEDS: hydrALAZINE HCL 50 MG TABLET PO SCH ×3 (08:06→16:09)
[2022-04-11] MEDS: CARVEDILOL 12.5 MG TABLET PO SCH ×2 (08:06→16:08)
[2022-04-11] MEDS: SPIRONOLACTONE 25 MG TABLET PO SCH (08:07)
[2022-04-11] MEDS: INSULIN REGULAR, HUMAN 100 UNIT/ML 3 ML VIAL SQ PRN (08:09)
[2022-04-11] MEDS: INSULIN GLARGINE, 100 UNIT/ML CARTRIDGE SQ SCH ×2 (08:11→17:00)
[2022-04-11] MEDS: IV NS 0.9% 1,000 ML IV PRN (11:08)
--- NOTE | 2022-04-11 12:10 | NUR ---
RN NOTE PT REFUSING LUNCH AT THIS TIME. WILL HOLD INSULIN.
[2022-04-11 16:00] VITALS: BP 136/79
--- NOTE | 2022-04-11 17:57 | NUR ---
RN NOTE PT REFUSING DINER, INSULIN HELD.
--- NOTE | 2022-04-11 19:10 | NUR ---
MS RN OPENING NOTE PATIENT IS SLEEPING IN BED, EASILY BEING AROUSED. HE IS ALERT AND ORIENTED, AO X 4. PATIENT IS ON RA, TOLERATED WELL. NO S/S OF DISTRESS OR SOB. IV ACCESS IS AT HIS L AC, #20G, RUNNING NS @ 75 ML/HR. IV SITE IS PATENT AND INTACT. SAFETY MEASURES ARE IN PLACED: BED IN LOWEST AND LOCKED POSITION; SIDE RAILS UP X 2; BED ALARM IS SET; CALL LIGHT AND TABLE ARE WITHIN EASY REACH. WILL CONTINUE MONITOR THE PATIENT, AND PROVIDE THE CARE PT NEEDS.
[2022-04-11 20:00] VITALS: BP 125/79
[2022-04-11] MEDS: ATORVASTATIN 40 MG TABLET PO SCH (21:12)
[2022-04-11] MEDS: *INSULIN REGULAR(HUMULIN R)HUM 100 UNIT/ML VIAL SQ PRN (21:59)
--- NOTE | 2022-04-11 22:40 | NUR ---
MS STAFFORD NOTE PT STATES HE IS HAVING PAIN AT HIS R TOE; AND HIS A 8 OUT 10 Addendum: 04/12/22 at 0531 by CANDICE THOMPSON RN AND HIS PAIN LEVEL IS 8 OUT OF 10. PRN MEDICATION, DILAUDID, GIVEN THROUGH IV PER MD ORDER.
[2022-04-12] VITALS: BP 139/79
[2022-04-12] MEDS: ZOSYN IVPB 2.25 G in IV D5W 50ml IV SCH ×4 (00:04→18:43)
[2022-04-12] MEDS: IV NS 0.9% 1,000 ML IV PRN ×2 (00:20→18:50)
[2022-04-12 04:00] VITALS: BP 143/56
[2022-04-12] MEDS: HYDROMORPHONE 1 MG/1 ML DISP.SYRIN IV PRN ×3 (04:25→20:38)
--- NOTE | 2022-04-12 04:30 | NUR ---
MS RN NOTE PT STATES HE IS HAVING PAIN AT HIS R TOE; AND HIS PAIN LEVEL IS 8 OUT OF 10. PRN MEDICATION, DILAUDID, GIVEN THROUGH IV PER MD ORDER.
--- NOTE | 2022-04-12 06:32 | NUR ---
MS RN CLOSING NOTE PATIENT IS SLEEPING IN BED, EASILY BEING AROUSED. HE IS ALERT AND ORIENTED, AO X 4. PATIENT IS ON RA, TOLERATED WELL. NO S/S OF DISTRESS OR SOB. IV ACCESS IS AT HIS R HAND, #22G, RUNNING NS @ 75 ML/HR. IV SITE IS PATENT AND INTACT. SAFETY MEASURES ARE IN PLACED: BED IN LOWEST AND LOCKED POSITION; SIDE RAILS UP X 2; BED ALARM IS SET; CALL LIGHT AND TABLE ARE WITHIN EASY REACH. WILL ENDORSE NEXT SHIFT NURSE FOR CONTINUING PT CARE.
--- NOTE | 2022-04-12 07:10 | NUR ---
JOCKEY'S AGENT OPENING NOTES Received pt awake in bed AOx4. No complaints of pain or discomfort at this time. Pt is currently on RA and tolerating it well. IV access on Right hand 22G patent and intact running IVF As ordered. HOB elevated to pts comfort. Siderails up at all times. Call light within reach. Will continue to monitor.
[2022-04-12 07:21] LABS: BASOPHILS % (AUTO) 0.2 % (0.0-2.0); EOSINOPHILS % (AUTO) 2.4 % (0.0-6.0); HEMATOCRIT 40 % (39-51); HEMOGLOBIN 12.6 g/dL (13.5-17.5); LYMPHOCYTES # (AUTO) 1.7 K/uL (0.8-4.8); LYMPHOCYTES % (AUTO) 17.1 % (20.0-44.0); MEAN CORPUSCULAR HGB CONC 32 g/dl (31.0-36.0); MEAN CORPUSCULAR VOLUME 96 fL (80-96); MONOCYTES # (AUTO) 0.9 K/uL (0.1-1.30); MONOCYTES % (AUTO) 8.8 % (2.0-12.0); NEUTROPHILS % (AUTO) 71.5 % (43.0-81.0); PLATELET COUNT (AUTO) 312 K/uL (150-450); RED BLOOD CELL COUNT(AUTO) 4.15 MIL/uL (4.5-6.0); WHITE BLOOD COUNT (AUTO) 9.8 K/uL (4.3-11.0)
[2022-04-12 07:42] LABS: CALCIUM, SERUM 9.5 mg/dL (8.5-10.1); CREATININE 2.6 mg/dL (0.6-1.3)
[2022-04-12] MEDS: BLOOD SUGAR DIAGNOSTIC 1 EACH STRIP VI SCH ×4 (07:42→21:47)
[2022-04-12 08:00] VITALS: BP 126/63
[2022-04-12] MEDS: hydrALAZINE HCL 50 MG TABLET PO SCH ×3 (08:12→17:01)
[2022-04-12] MEDS: NIFEdipine XL (30MG) 30 MG TAB PO SCH ×2 (08:12→17:00)
[2022-04-12] MEDS: CLONIDINE HCL 0.1 MG TABLET PO SCH ×2 (08:12→17:00)
[2022-04-12] MEDS: PANTOPRAZOLE 40 MG TABLET.DR PO SCH (08:13)
[2022-04-12] MEDS: SPIRONOLACTONE 25 MG TABLET PO SCH (08:13)
[2022-04-12] MEDS: CARVEDILOL 12.5 MG TABLET PO SCH ×2 (08:13→17:01)
[2022-04-12] MEDS: INSULIN GLARGINE, 100 UNIT/ML CARTRIDGE SQ SCH ×2 (08:16→17:02)
--- NOTE | 2022-04-12 10:08 | NUR ---
WOUND CARE CONSULT: RECEIVED CONSULT FOR RT 4TH TOE. DEFER TO DR LUPILLO DPM CURRENTLY ON CASE. WILL SEE PRN.
[2022-04-12] MEDS: VANCOMYCIN 1.5 GM in IV D5W 500ml IV SCH (14:10)
[2022-04-12 16:00] VITALS: BP 116/64
[2022-04-12] MEDS: *INSULIN REGULAR(HUMULIN R)HUM 100 UNIT/ML VIAL SQ PRN (17:04)
--- NOTE | 2022-04-12 18:40 | NUR ---
CURRICULUM COACH CLOSING NOTES All due meds and tx given as ordered. Pt tolerated everything well. All needs attended to.
--- NOTE | 2022-04-12 19:40 | NUR ---
MS RN OPENING NOTES RECEIVED PATIENT IS SLEEPING IN BED, EASILY BEING AROUSED. HE IS ALERT AND ORIENTED, A/O X 4. PT IS ON RA, BREATHING EVEN AND UNLABORED, NO SIGNS OF DISTRESS OR SOB NOTED AT THIS TIME. PT DENIES OF HAVING PAIN AT THIS MOMENT. IV ACCESS R HAND, #20G, RUNNING NS @ 75 ML/HR. IV SITE IS PATENT AND INTACT. SAFETY MEASURES ARE IN PLACE: BED IN LOWEST AND LOCKED POSITION; SIDE RAILS UP X 2; BED ALARM IS SET; CALL LIGHT AND TRAY ARE WITHIN EASY REACH. WILL CONTINUE WITH THE PLAN OF CARE.
[2022-04-12 20:00] VITALS: BP_SYST 118; BP_SYST 132; BP_DIAS 65; BP_DIAS 81
--- NOTE | 2022-04-12 20:35 | NUR ---
RN NOTES- DILAUDID PATIENT C/O OF PAIN WITH THE SCALE OF 8/10. DILAUDID IV GIVEN PRN. WILL ASSESS THE PAIN IN AN HOUR AND CONTINUE TO MONITOR PATIENT.
[2022-04-12] MEDS: ATORVASTATIN 40 MG TABLET PO SCH (21:36)
[2022-04-13] VITALS: BP 137/75
[2022-04-13 00:37] VITALS: BP 137/75
[2022-04-13] MEDS: ZOSYN IVPB 2.25 G in IV D5W 50ml IV SCH ×4 (01:29→18:11)
[2022-04-13] MEDS: HYDROMORPHONE 1 MG/1 ML DISP.SYRIN IV PRN ×4 (02:00→19:37)
[2022-04-13 04:00] VITALS: BP 130/72
[2022-04-13 07:35] LABS: BASOPHILS % (AUTO) 0.4 % (0.0-2.0); EOSINOPHILS % (AUTO) 3.2 % (0.0-6.0); HEMATOCRIT 38 % (39-51); LYMPHOCYTES % (AUTO) 20.1 % (20.0-44.0); MEAN CORPUSCULAR HGB CONC 32 g/dl (31.0-36.0); MEAN CORPUSCULAR VOLUME 96 fL (80-96); MONOCYTES # (AUTO) 0.8 K/uL (0.1-1.30); NEUTROPHILS # (AUTO) 6.7 K/uL (1.8-8.9); NEUTROPHILS % (AUTO) 68.3 % (43.0-81.0); PLATELET COUNT (AUTO) 286 K/uL (150-450); RED BLOOD CELL COUNT(AUTO) 3.91 MIL/uL (4.5-6.0); WHITE BLOOD COUNT (AUTO) 9.8 K/uL (4.3-11.0)
--- NOTE | 2022-04-13 07:41 | NUR ---
MS RN CLOSING NOTES PATIENT IN BED AWAKE, ALERT AND ORIENTED. A/O X 4. PT IS ON RA, BREATHING EVEN AND UNLABORED, NO SIGNS OF DISTRESS OR SOB NOTED AT THIS TIME. PT DENIES OF HAVING PAIN AT THIS MOMENT. IV ACCESS R HAND, #20G, RUNNING NS @ 75 ML/HR. IV SITE IS PATENT, INTACT AND INFUSING WELL. ALL DUE IV AND PO MEDS GIVEN. SAFETY MEASURES ARE IN PLACE: BED IN LOWEST AND LOCKED POSITION; SIDE RAILS UP X 2; BED ALARM IS SET; CALL LIGHT AND TRAY ARE WITHIN EASY REACH. WILL ENDORSE TO THE NEXT SHIFT.
[2022-04-13 08:00] VITALS: BP 150/81
[2022-04-13 08:01] LABS: CALCIUM, SERUM 9.4 mg/dL (8.5-10.1); CREATININE 2.3 mg/dL (0.6-1.3); POTASSIUM 3.9 mmol/L (3.5-5.1)
[2022-04-13] MEDS: BLOOD SUGAR DIAGNOSTIC 1 EACH STRIP VI SCH ×4 (08:05→22:41)
[2022-04-13] MEDS: INSULIN GLARGINE, 100 UNIT/ML CARTRIDGE SQ SCH ×2 (08:06→16:41)
--- NOTE | 2022-04-13 08:06 | NUR ---
LORE Ghotra held d/t BS at 67.
[2022-04-13] MEDS: CARVEDILOL 12.5 MG TABLET PO SCH ×2 (08:10→16:50)
[2022-04-13] MEDS: PANTOPRAZOLE 40 MG TABLET.DR PO SCH (08:10)
[2022-04-13] MEDS: CLONIDINE HCL 0.1 MG TABLET PO SCH ×2 (08:11→16:49)
[2022-04-13] MEDS: hydrALAZINE HCL 50 MG TABLET PO SCH ×3 (08:11→16:49)
[2022-04-13] MEDS: SPIRONOLACTONE 25 MG TABLET PO SCH (08:11)
[2022-04-13] MEDS: NIFEdipine XL (30MG) 30 MG TAB PO SCH ×2 (08:11→16:49)
[2022-04-13] MEDS: IV NS 0.9% 1,000 ML IV PRN (09:43)
[2022-04-13 16:00] VITALS: BP 132/73
--- NOTE | 2022-04-13 18:32 | NUR ---
GENERAL LEDGER BOOKKEEPER CLOSING NOTES All due meds and tx given as ordered. Pt tolerated everything well. All needs attended to. Pt is currently on RA and tolerating it well. IV access on left hand 20G and right hand 22G patent and intact. Call light within reach. Will endorse to oncomnig nurse.
--- NOTE | 2022-04-13 19:30 | NUR ---
RECEIVED PATIENT AWAKE IN BED, A/O X 4. PT IS ON RA, BREATHING EVEN AND UNLABORED, NO SIGNS OF DISTRESS OR SOB NOTED AT THIS TIME. IV ACCESS R HAND, #20G, INFUSING NS @ 75 ML/HR. SAFETY MEASURES ARE IN PLACE. WILL CONTINUE PLAN OF CARE.
[2022-04-13] MEDS: ATORVASTATIN 40 MG TABLET PO SCH (22:41)
[2022-04-13] MEDS: *INSULIN REGULAR(HUMULIN R)HUM 100 UNIT/ML VIAL SQ PRN (22:53)
[2022-04-14] VITALS: BP 120/65
[2022-04-14] MEDS: IV NS 0.9% 1,000 ML IV PRN ×3 (00:59→22:04)
[2022-04-14] MEDS: ZOSYN IVPB 2.25 G in IV D5W 50ml IV SCH ×2 (01:42→06:00)
[2022-04-14] MEDS: VANCOMYCIN 1.5 GM in IV D5W 500ml IV SCH (01:42)
[2022-04-14] MEDS: HYDROMORPHONE 1 MG/1 ML DISP.SYRIN IV PRN ×5 (04:12→19:06)
--- NOTE | 2022-04-14 06:52 | NUR ---
PATIENT AWAKE IN BED, BARELY SLEPT ALL NIGHT. A/O X 4. PT IS ON RA, BREATHING EVEN AND UNLABORED, NO SIGNS OF DISTRESS OR SOB NOTED AT THIS TIME. IV ACCESS R HAND, #20G, INFUSING NS @ 75 ML/HR. NPO SINCE MIDNIGHT. SAFETY MEASURES MAINTAINED. WILL ENDORSE TO NEXT NURSE ON DUTY FOR CONTINUITY OF CARE.
[2022-04-14 06:56] LABS: CALCIUM, SERUM 9.4 mg/dL (8.5-10.1); CREATININE 2.2 mg/dL (0.6-1.3); POTASSIUM 4.1 mmol/L (3.5-5.1)
[2022-04-14] MEDS ORDERED: CEFEPIME 1 GM in IV D5W 50 ML IV ONE (07:00)
--- NOTE | 2022-04-14 07:15 | NUR ---
CASHIER WRAPPER OPENING NOTES Received pt asleep in bed AOx4. No signs of pain or discomfort at this time. Pt is currently on RA and tolerating it well. IV access on Right hand 22G patent and intact running IVF As ordered. HOB elevated to pts comfort. Siderails up at all times. Call light always within reach. Will continue to monitor.
[2022-04-14 08:00] VITALS: BP 147/80
[2022-04-14] MEDS ORDERED: CEFEPIME 2 GM in IV D5W 100 ML IV SCH (08:00)
[2022-04-14] MEDS: PANTOPRAZOLE 40 MG TABLET.DR PO SCH (08:19)
[2022-04-14] MEDS: BLOOD SUGAR DIAGNOSTIC 1 EACH STRIP VI SCH ×4 (08:20→21:56)
[2022-04-14] MEDS: CLONIDINE HCL 0.1 MG TABLET PO SCH ×2 (08:50→17:28)
[2022-04-14] MEDS: hydrALAZINE HCL 50 MG TABLET PO SCH ×3 (08:51→17:29)
[2022-04-14] MEDS: SPIRONOLACTONE 25 MG TABLET PO SCH (08:51)
[2022-04-14] MEDS: NIFEdipine XL (30MG) 30 MG TAB PO SCH ×2 (08:51→17:29)
[2022-04-14] MEDS: CARVEDILOL 12.5 MG TABLET PO SCH ×2 (08:51→17:29)
[2022-04-14] MEDS: INSULIN GLARGINE, 100 UNIT/ML CARTRIDGE SQ SCH ×2 (09:00→17:00)
[2022-04-14] MEDS ORDERED: IV NS 0.9% 1,000 ML ONE (11:49)
[2022-04-14] MEDS ORDERED: LIDOCAINE 1% INJ 50 ML MDV IJ ONE (11:50)
[2022-04-14] MEDS ORDERED: IODIXANOL 150 ML IV ONE (11:50)
--- NOTE | 2022-04-14 12:09 | NUR ---
MICROBIOLOGY TECHNICIAN NOTES Pt picked up by radiology to go to Angiogram procedure.
[2022-04-14] MEDS ORDERED: NITROGLYCERIN IN 5 % DEXTROSE 250 ML IV ONE (12:16)
[2022-04-14] MEDS ORDERED: VERAPAMIL HCL IV 5 MG/2 ML VIAL ONE ×2 (12:16→12:19)
[2022-04-14] MEDS ORDERED: HEPARIN SODIUM, PORCINE 5000 UNITS/1 ML VIAL ONE ×2 (12:17→12:19)
[2022-04-14] MEDS ORDERED: FENTANYL PF 100MCG/2ML AMPUL ONE (12:27)
[2022-04-14] MEDS ORDERED: MIDAZOLAM HCL 2 MG/2ML VIAL ONE (12:27)
--- NOTE | 2022-04-14 13:30 | NUR ---
SMALL PRODUCTS II ASSEMBLER NOTES Pt returned from angiogram with new orders from Dr Delaney. Noted and carried out.
--- NOTE | 2022-04-14 14:20 | NUR ---
RECEIVED REPORT FROM MILLY TORREZ, PATIENT AWAKE IN BED EATING LUNCH, A/O X 4. PT IS ON RA, BREATHING EVEN AND UNLABORED, NO SIGNS OF DISTRESS OR SOB NOTED AT THIS TIME. IV ACCESS R HAND, #20G, AND LEFT HAND WITH NS INFUSING AT 75ML/HR. SAFETY MEASURES ARE IN PLACE. PLAN OF CARE CONTINUE.
--- NOTE | 2022-04-14 15:05 | NUR ---
REMOVED 5ML OF AIR AT THE LEFT TR BAND, NO BLEEDING NOTED.
--- NOTE | 2022-04-14 15:35 | NUR ---
REMOVED TOTAL OF 14ML OF AIR FROM TR BAND, NO BLEEDING NOTED. PLAN OF CARE CONTINUE.
[2022-04-14 16:00] VITALS: BP 139/73
--- NOTE | 2022-04-14 18:09 | NUR ---
HELD LANTUS DUE TO PATIENT ONLY ATE 10% OF DINNER.
[2022-04-14] MEDS: *INSULIN REGULAR(HUMULIN R)HUM 100 UNIT/ML VIAL SQ PRN ×2 (18:16→21:59)
--- NOTE | 2022-04-14 18:26 | NUR ---
HYDRO EXCAVATION OPERATOR CLOSING NOTES PATIENT AWAKE IN BED WATCHING TV, A/O X 4. PT IS ON RA, BREATHING EVEN AND UNLABORED, NO SIGNS OF DISTRESS OR SOB NOTED AT THIS TIME. IV ACCESS R HAND, #20G, AND LEFT HAND WITH NS INFUSING AT 75ML/HR. SAFETY MEASURES ARE IN PLACE. PLAN OF CARE CONTINUE. WOUND CARE RENDERED. WILL ENDORSE TO NIGHT NURSE FOR BRIANNA.
--- NOTE | 2022-04-14 19:30 | NUR ---
PATIENT AWAKE IN BED. A/O X 4. PT IS ON RA, BREATHING EVEN AND UNLABORED, NO SOB NOTED AT THIS TIME. IV ACCESS ON LT HAND G20 AND ON RT HAND, G22, INFUSING NS @ 75 ML/HR. URINAL AT BEDSIDE. SAFETY MEASURES IN PLACE. WILL CONTINUE PLAN OF CARE.
[2022-04-14 20:00] VITALS: BP 140/69
[2022-04-14] MEDS: ATORVASTATIN 40 MG TABLET PO SCH (21:56)
[2022-04-15] VITALS (7 sets, daily range): BP systolic 130–150; BP diastolic 71–80
[2022-04-15] MEDS: HYDROMORPHONE 1 MG/1 ML DISP.SYRIN IV PRN ×5 (01:04→19:37)
--- NOTE | 2022-04-15 06:50 | NUR ---
PT AWAKE IN BED. A/O X 4. PT IS ON RA, BREATHING EVEN AND UNLABORED, NO SOB NOTED AT THIS TIME. IV ACCESS ON RT HAND, G22 AND ON LT HAND G20, INFUSING NS @ 75 ML/HR. URINAL AT BEDSIDE. DUE MEDS AND PRN MEDS GIVEN NEEDED AND ORDERED. ALL SAFETY MEASURES MAINTAINED. WILL ENDORSE TO NEXT NURSE ON DUTY FOR CONTINUITY OF CARE.
[2022-04-15 06:58] LABS: BASOPHILS % (AUTO) 0.4 % (0.0-2.0); HEMATOCRIT 37 % (39-51); HEMOGLOBIN 11.8 g/dL (13.5-17.5); LYMPHOCYTES # (AUTO) 1.3 K/uL (0.8-4.8); MEAN CORPUSCULAR HGB CONC 32 g/dl (31.0-36.0); MEAN CORPUSCULAR VOLUME 95 fL (80-96); MONOCYTES # (AUTO) 0.7 K/uL (0.1-1.30); MONOCYTES % (AUTO) 7.8 % (2.0-12.0); NEUTROPHILS # (AUTO) 7.1 K/uL (1.8-8.9); NEUTROPHILS % (AUTO) 74.8 % (43.0-81.0); PLATELET COUNT (AUTO) 248 K/uL (150-450); RED BLOOD CELL COUNT(AUTO) 3.92 MIL/uL (4.5-6.0); WHITE BLOOD COUNT (AUTO) 9.5 K/uL (4.3-11.0)
--- NOTE | 2022-04-15 07:10 | NUR ---
RN OPENING NOTES Received pt awake in bed AOx4. No signs of pain or discomfort at this time. Pt is currently on RA and tolerating it well. IV access on Right hand 22G patent and intact running IVF As ordered. bed is low and locked position. Siderails up at all times. Call light always within reach. Will continue to monitor.
[2022-04-15 07:18] LABS: CALCIUM, SERUM 9.2 mg/dL (8.5-10.1); CREATININE 2.1 mg/dL (0.6-1.3); MAGNESIUM 2.3 mg/dL (1.8-2.4); POTASSIUM 4.3 mmol/L (3.5-5.1)
[2022-04-15] MEDS: PANTOPRAZOLE 40 MG TABLET.DR PO SCH (07:22)
[2022-04-15] MEDS: BLOOD SUGAR DIAGNOSTIC 1 EACH STRIP VI SCH ×4 (07:40→22:31)
--- NOTE | 2022-04-15 07:41 | NUR ---
RN NOTES: SEEN BY DR PEREZ WHO DISCUSSED THAT HE NEEDS BYPASS AND HE IS PLANNING TO DO IT TUESDAY PT ANSWERED OK
[2022-04-15] MEDS: INSULIN REGULAR, HUMAN 100 UNIT/ML 3 ML VIAL SQ PRN ×3 (08:07→18:01)
[2022-04-15] MEDS: INSULIN GLARGINE, 100 UNIT/ML CARTRIDGE SQ SCH ×2 (08:11→18:01)
[2022-04-15] MEDS: hydrALAZINE HCL 50 MG TABLET PO SCH ×3 (08:16→17:52)
[2022-04-15] MEDS: NIFEdipine XL (30MG) 30 MG TAB PO SCH ×2 (08:17→17:53)
[2022-04-15] MEDS: CARVEDILOL 12.5 MG TABLET PO SCH ×2 (08:17→17:53)
[2022-04-15] MEDS: CLONIDINE HCL 0.1 MG TABLET PO SCH ×2 (08:17→17:53)
[2022-04-15] MEDS: SPIRONOLACTONE 25 MG TABLET PO SCH (08:18)
[2022-04-15] MEDS: VANCOMYCIN 1.5 GM in IV D5W 500ml IV SCH (13:43)
[2022-04-15] MEDS: IV NS 0.9% 1,000 ML IV PRN (13:58)
--- NOTE | 2022-04-15 19:05 | NUR ---
SWATCH CHECKER CLOSING NOTE PATIENT IS SLEEPING IN BED, EASILY BEING AROUSED. HE IS ALERT AND ORIENTED, AO X 4. PATIENT IS ON RA, TOLERATED WELL. NO S/S OF DISTRESS OR SOB. IV ACCESS IS AT HIS R HAND, #22G, RUNNING NS @ 75 ML/HR. IV SITE IS PATENT AND INTACT. SAFETY MEASURES ARE IN PLACED: BED IN LOWEST AND LOCKED POSITION; SIDE RAILS UP X 2; BED ALARM IS SET; CALL LIGHT AND TABLE ARE WITHIN EASY REACH. ENDORSED NEXT SHIFT NURSE FOR CONTINUING PT CARE.
--- NOTE | 2022-04-15 20:15 | NUR ---
BIOMEDICAL ELECTRONICS TECHNICIAN OPENING NOTES: RECEIVED PATIENT AWAKE IN BED ACCOMPANIED BY FAMILY, BED IN LOW POSITION, CALL LIGHTS WITHIN REACH, NO COMPLAIN OF PAIN AND DISCOMFORT AT THIS TIME, ON ROOM AIR SATURATING WELL, PATIENT IS A/OX4 ABLE TO MAKE NEEDS KNOWN, AMBULATORY WITH ASSISTANCE, PATIENT ON TELE MONITOR- SR-70 NO SYMPTOMS WAS OBSERVED, IV LINE AT LEFT [id number] WITH ONGOING NSS@75ML/HR INFUSING WELL, PATIENT KEPT CLEAN AND DRY ALL NEEDS MET WILL CONTINUE TO MONITOR.
[2022-04-15] MEDS: ATORVASTATIN 40 MG TABLET PO SCH (22:02)
[2022-04-15] MEDS: *INSULIN REGULAR(HUMULIN R)HUM 100 UNIT/ML VIAL SQ PRN (22:19)
[2022-04-16] VITALS: BP 148/76
[2022-04-16] MEDS: HYDROMORPHONE 1 MG/1 ML DISP.SYRIN IV PRN ×5 (00:06→20:59)
[2022-04-16 04:00] VITALS: BP 145/76
[2022-04-16] MEDS: IV NS 0.9% 1,000 ML IV PRN ×2 (05:28→18:20)
--- NOTE | 2022-04-16 06:31 | NUR ---
ROVING CHANGER CLOSING NOTES: PATIENT SLEEP IN BED COMFORTABLY, AROUSABLE TO VERBAL STIMULI, BED IN LOW POSITION CALL LIGHTS WITHIN REACH, NO COMPLAIN OF PAIN AND DISCOMFORT AT THIS TIME, ON ROOM AIR SATURATING WELL, PATIENT IS A/O X4 ABLE TO MAKE NEEDS KNOWN, ON TELE MONITOR- SR- 67 WITH PVC, PATIENT KEPT CLEAN AND DRY ALL NEEDS MET WILL CONTINUE TO MONITOR.
[2022-04-16 07:17] LABS: CALCIUM, SERUM 8.8 mg/dL (8.5-10.1); CREATININE 1.8 mg/dL (0.6-1.3)
[2022-04-16 08:00] VITALS: BP 147/77
--- NOTE | 2022-04-16 08:00 | NUR ---
RN NOTE PATIENT BLOOD SUGAR 71 HE ATE HIS BREAKFAST 70%. AND PATIENT HAS LANTUS [address] JOAN BEARDEN REPLIES CHANGE THE LANTUS UNIT TO 56 AND CAN GIVE.
[2022-04-16] MEDS: BLOOD SUGAR DIAGNOSTIC 1 EACH STRIP VI SCH ×4 (08:08→21:50)
[2022-04-16] MEDS: PANTOPRAZOLE 40 MG TABLET.DR PO SCH (08:17)
[2022-04-16] MEDS: NIFEdipine XL (30MG) 30 MG TAB PO SCH ×2 (08:17→16:30)
[2022-04-16] MEDS: SPIRONOLACTONE 25 MG TABLET PO SCH (08:17)
[2022-04-16] MEDS: hydrALAZINE HCL 50 MG TABLET PO SCH ×3 (08:17→16:30)
[2022-04-16] MEDS: CLONIDINE HCL 0.1 MG TABLET PO SCH ×2 (08:17→16:30)
[2022-04-16] MEDS: CARVEDILOL 12.5 MG TABLET PO SCH ×2 (08:18→16:30)
--- NOTE | 2022-04-16 09:20 | NUR ---
RN NOTE INSULIN LANTUS DOSE CHANGED FROM 62 UN[address] TO [address] JOAN BEARDEN ORDER PHARMACY NOTIFIED AND ALREADY VERIFIED THE DOSE.
[2022-04-16] MEDS: INSULIN GLARGINE, 100 UNIT/ML CARTRIDGE SQ SCH ×2 (09:43→17:02)
[2022-04-16 12:00] VITALS: BP 142/77
[2022-04-16 16:00] VITALS: BP 145/76
[2022-04-16] MEDS ORDERED: INSULIN GLARGINE, 100 UNIT/ML CARTRIDGE SQ SCH (17:00)
[2022-04-16] MEDS: INSULIN REGULAR, HUMAN 100 UNIT/ML 3 ML VIAL SQ PRN (17:03)
--- NOTE | 2022-04-16 18:57 | NUR ---
RN CLOSING NOTES PATIENT SLEEP IN BED COMFORTABLY, AROUSABLE TO VERBAL STIMULI, BED IN LOW POSITION CALL LIGHTS WITHIN REACH, PATIENT COMPLAINS OF PAIN ALMOST EVERY 4-5 HRS PATIENT HAS DILAUDID PRN Q4H. PATIENT IS ON ROOM AIR SATURATING 98%, PATIENT IS A/O X4 ABLE TO MAKE NEEDS KNOWN, ON TELE MONITOR SR 77 WITH PVC, PATIENT KEPT CLEAN AND DRY ALL NEEDS MET WILL ENDORSE THE PATIENT TO THE NEUROSCIENCE SPECIALIST NURSE FOR BRIANNA.
--- NOTE | 2022-04-16 19:30 | NUR ---
MS RN OPENING NOTES RECEIVED PT AWAKE IN BED, WATCHING TV AT THIS TIME, COMFORTABLE. A/O X4, ABLE TO MAKE NEEDS KNOWN. ON RA WITH NO S/S OF SOB OR DISTRESS. C/O PAIN AT THIS TIME AND REQUESTING PAIN MEDICATION. IV ACCESS R HAND #20G, PATENT AND INTACT, FLUSHING WELL, INFUSING NS @ 75 ML/HR. SAFETY PRECAUTIONS IN PLACE: BED LOCKED AND IN LOWEST POSITION, SIDE RAILS UP X2, CALL LIGHT AND TRAY TABLE WITHIN REACH. WILL CONTINUE TO MONITOR AND ASSIST.
[2022-04-16 20:00] VITALS: BP 138/68
[2022-04-16] MEDS: ATORVASTATIN 40 MG TABLET PO SCH (21:38)
[2022-04-16] MEDS: *INSULIN REGULAR(HUMULIN R)HUM 100 UNIT/ML VIAL SQ PRN (21:49)
[2022-04-17] MEDS: HYDROMORPHONE 1 MG/1 ML DISP.SYRIN IV PRN ×5 (01:16→23:26)
[2022-04-17 04:00] VITALS: BP 149/76
[2022-04-17 05:00] VITALS: BP 149/76
--- NOTE | 2022-04-17 07:15 | NUR ---
MS RN CLOSING NOTES PT AWAKE IN BED, WATCHING TV AT THIS TIME, COMFORTABLE. A/O X4, ABLE TO MAKE NEEDS KNOWN. STABLE ON RA WITH NO S/S OF SOB OR DISTRESS. C/O PAIN AT THIS TIME AND REQUESTING PAIN MEDICATION. IV ACCESS R HAND #20G, PATENT AND INTACT, FLUSHING WELL, INFUSING NS @ 75 ML/HR. ALL CARE PROVIDED AND MEDS TOLERATED WELL. SAFETY PRECAUTIONS MAINTAINED: BED LOCKED AND IN LOWEST POSITION, SIDE RAILS UP X2, CALL LIGHT AND TRAY TABLE WITHIN REACH. WILL ENDORSE BRIANNA TO DAY SHIFT NURSE.
[2022-04-17] MEDS: PANTOPRAZOLE 40 MG TABLET.DR PO SCH (07:24)
[2022-04-17] MEDS: BLOOD SUGAR DIAGNOSTIC 1 EACH STRIP VI SCH ×4 (07:24→22:03)
[2022-04-17] MEDS: CARVEDILOL 12.5 MG TABLET PO SCH ×2 (08:04→16:05)
[2022-04-17] MEDS: SPIRONOLACTONE 25 MG TABLET PO SCH (08:04)
[2022-04-17] MEDS: CLONIDINE HCL 0.1 MG TABLET PO SCH ×2 (08:05→16:04)
[2022-04-17] MEDS: NIFEdipine XL (30MG) 30 MG TAB PO SCH ×2 (08:06→16:03)
[2022-04-17] MEDS: hydrALAZINE HCL 50 MG TABLET PO SCH ×3 (08:07→16:04)
[2022-04-17 08:19] VITALS: BP 142/75
[2022-04-17] MEDS: INSULIN GLARGINE, 100 UNIT/ML CARTRIDGE SQ SCH ×2 (08:58→16:18)
[2022-04-17] MEDS: IV NS 0.9% 1,000 ML IV PRN ×2 (09:33→23:29)
[2022-04-17 11:17] LABS: BASOPHILS # (AUTO) 0.1 K/uL (0.0-0.2); BASOPHILS % (AUTO) 0.8 % (0.0-2.0); EOSINOPHILS % (AUTO) 4.3 % (0.0-6.0); HEMATOCRIT 37 % (39-51); HEMOGLOBIN 11.7 g/dL (13.5-17.5); LYMPHOCYTES # (AUTO) 1.5 K/uL (0.8-4.8); LYMPHOCYTES % (AUTO) 16.3 % (20.0-44.0); MEAN CORPUSCULAR HGB CONC 32 g/dl (31.0-36.0); MEAN CORPUSCULAR VOLUME 94 fL (80-96); MONOCYTES # (AUTO) 0.9 K/uL (0.1-1.30); MONOCYTES % (AUTO) 9.3 % (2.0-12.0); NEUTROPHILS # (AUTO) 6.5 K/uL (1.8-8.9); NEUTROPHILS % (AUTO) 69.3 % (43.0-81.0); PLATELET COUNT (AUTO) 225 K/uL (150-450); RED BLOOD CELL COUNT(AUTO) 3.92 MIL/uL (4.5-6.0); WHITE BLOOD COUNT (AUTO) 9.3 K/uL (4.3-11.0)
[2022-04-17 11:29] LABS: CALCIUM, SERUM 8.9 mg/dL (8.5-10.1); CREATININE 1.8 mg/dL (0.6-1.3); POTASSIUM 3.9 mmol/L (3.5-5.1)
[2022-04-17 13:00] VITALS: BP 155/75
[2022-04-17 16:06] VITALS: BP 142/72
--- NOTE | 2022-04-17 19:21 | NUR ---
OPENING NOTES RECEIVED PT AWAKE IN BED, WATCHING TV FAMILY AT BEDSIDE,A/O X4, ABLE TO MAKE NEEDS KNOWN. BRINDA WELL RM AIR SAT,99%,IV ACCESS R HAND #20G WITH NS @ 75 ML/HR INFUSING WELL,SAFETY PRECAUTIONS IN PLACE: BED LOCKED AND IN LOWEST POSITION, SIDE RAILS UP X2, CALL LIGHT AND TRAY TABLE WITHIN REACH. WILL CONTINUE TO MONITOR.
[2022-04-17 21:00] VITALS: BP 153/81
[2022-04-17] MEDS: ATORVASTATIN 40 MG TABLET PO SCH (21:15)
--- NOTE | 2022-04-17 23:26 | NUR ---
RN NOTES; PATIENT COMPLAINED OF RIGHT TOE PAIN 9/,PRN DILAUDID 1MG WAS GIVEN,NO A/R NOTED.
[2022-04-18] MEDS: HYDROMORPHONE 1 MG/1 ML DISP.SYRIN IV PRN ×5 (04:13→23:29)
--- NOTE | 2022-04-18 04:13 | NUR ---
RN NOTES; PATIENT COMPLAINED OF RIGHT TOE PAIN 9/,PRN DILAUDID 1MG WAS GIVEN,NO A/R NOTED.
[2022-04-18 05:00] VITALS: BP 163/82
--- NOTE | 2022-04-18 06:10 | NUR ---
CLOSING NOTES; PATIENT AWAKED IN BED, WATCHING TV A/O X4, ABLE TO MAKE NEEDS KNOWN.BRINDA WELL RM AIR SAT,97.8%,NO SOB/DISTRERSS NOTED,DUE MEDS GIVEN ORDER,ALL NEEDS ATTENDED,IV ACCESS R HAND #20G WITH NS @ 75 ML/HR INFUSING WELL,SAFETY PRECAUTIONS IN PLACE: BED LOCKED AND IN LOWEST POSITION, SIDE RAILS UP X2, CALL LIGHT AND TRAY TABLE WITHIN REACH. WILL ENDORSED TO NEXT SHIFT.
[2022-04-18] MEDS: BLOOD SUGAR DIAGNOSTIC 1 EACH STRIP VI SCH ×4 (06:29→21:55)
[2022-04-18] MEDS: PANTOPRAZOLE 40 MG TABLET.DR PO SCH (07:41)
[2022-04-18 08:00] VITALS: BP 159/84
[2022-04-18] MEDS: NIFEdipine XL (30MG) 30 MG TAB PO SCH ×2 (08:18→16:58)
[2022-04-18] MEDS: SPIRONOLACTONE 25 MG TABLET PO SCH (08:18)
[2022-04-18] MEDS: CLONIDINE HCL 0.1 MG TABLET PO SCH ×2 (08:18→16:58)
[2022-04-18] MEDS: CARVEDILOL 12.5 MG TABLET PO SCH ×2 (08:19→16:58)
[2022-04-18] MEDS: hydrALAZINE HCL 50 MG TABLET PO SCH ×3 (08:19→16:58)
[2022-04-18] MEDS: INSULIN GLARGINE, 100 UNIT/ML CARTRIDGE SQ SCH ×2 (10:07→17:17)
[2022-04-18] MEDS: INSULIN REGULAR, HUMAN 100 UNIT/ML 3 ML VIAL SQ PRN (12:25)
[2022-04-18] MEDS: IV NS 0.9% 1,000 ML IV PRN (14:09)
[2022-04-18 16:00] VITALS: BP 143/81
[2022-04-18] MEDS ORDERED: INSULIN GLARGINE, 100 UNIT/ML CARTRIDGE SQ SCH (17:00)
--- NOTE | 2022-04-18 17:12 | NUR ---
RN NOTES: BLOOD SUGAR 125 ASKED JOAN BEARDEN CLAIM REVIEW MEDICAL DIRECTOR IF OK TO GIVE LANTUS 46 UNITS AND PT WILL BE NPO MIDNIGHT HE SAID YES OK TO GIVE
[2022-04-18 18:26] LABS: BILIRUBIN,URINE NEGATIVE (NEGATIVE); COLOR,URINE YELLOW (YELLOW); LEUKOCYTE ESTERASE ,URINE NEGATIVE (NEGATIVE); NITRITE, URINE NEGATIVE (NEGATIVE); PH,URINE 5.5 (5.0-8.0); PROTEIN,URINE 1+ mg/dl (NEGATIVE); UGLUCOSE 1+ mg/dL (NEGATIVE); UROBILINOGEN,URINE 0.2 EU/dL (0.2)
[2022-04-18 18:58] LABS: BACTERIA,URINE None seen /HPF (None Seen); MUCUS,URINE Few /LPF (None Seen); RBC,URINE 0-2 /HPF (0-2); WBC,URINE 0-2 /HPF (0-3)
--- NOTE | 2022-04-18 19:31 | NUR ---
RN CLOSING NOTE PATIENT IS IN BED RESTING COMFORTABLY, FAMILY MEMBER IS AT BEDSIDE, NO SIGNS OF IN DISTRESS, NO COMPLAINT OF PAIN, UNLABORED BREATHING ON ROOM AIR, SPO2-98%, SAFETY MEASURES APPLIED, BED IN LOW POSITION, SIDE RAILS UPX3, CALL LIGHT WITHIN REACH.
--- NOTE | 2022-04-18 20:56 | NUR ---
RN MS OPENING NOTES RECEIVED PATIENT ON BED, A/O X 4 ABLE TO VERBALIZED CONCERNS. ON MODERATE HIGH BACK REST POSITION. ON ROOM AIR SATURATING WELL. NO SIGNS OF PAIN OR ANY CHEST DISCOMFORT AT THIS TIME. WITH IV ACCESS AT RIGHT HAND #20G WITH NS AT 75ML/HR INFUSING WELL. NOTED GANGRENE TOE AT RIGHT. NO COMPLAINS AT THIS TIME. FOR RIGHT FEMORAL AND TIBIAL BYPASS TOMORROW WITH CONCENT SIGNS AND VERIFIED. BLOOD PRODUCTS AVAILABLE. KEPT PATIENT WARM AND COMFORTABLE, KEPT CALL LIGHT WITHIN AT REACH. KEPT BED ON LOWER LOCKED POSITION. WILL CONTINUE TO MONITOR
[2022-04-18 21:00] VITALS: BP 147/77
--- NOTE | 2022-04-18 21:00 | NUR ---
RN NOTES PATIENT IS FOR FEMORAL AND TIBIAL BYPASS ON 04/19/2022 AND WITH HEPARIN [address] JARVIS INFORMED AND AWARE. HE SAID ITS OK TO GIVE HEPARIN DOSE ILYA (04/18/2022) WILL CONTINUE TO MONITOR
[2022-04-18] MEDS: ATORVASTATIN 40 MG TABLET PO SCH (21:26)
[2022-04-18] MEDS: HEPARIN SODIUM, PORCINE 5000 UNITS/1 ML VIAL SQ SCH (21:54)
[2022-04-18 22:15] VITALS: BP 136/65
[2022-04-19] MEDS: HYDROMORPHONE 1 MG/1 ML DISP.SYRIN IV PRN ×5 (04:18→23:50)
[2022-04-19 05:00] VITALS: BP 136/65
[2022-04-19] MEDS: IV NS 0.9% 1,000 ML IV PRN (05:15)
[2022-04-19 05:42] VITALS: BP 135/75
[2022-04-19 06:54] LABS: BASOPHILS % (AUTO) 0.2 % (0.0-2.0); EOSINOPHILS % (AUTO) 4.3 % (0.0-6.0); HEMATOCRIT 37 % (39-51); HEMOGLOBIN 11.5 g/dL (13.5-17.5); LYMPHOCYTES # (AUTO) 1.6 K/uL (0.8-4.8); LYMPHOCYTES % (AUTO) 19.3 % (20.0-44.0); MEAN CORPUSCULAR HGB CONC 32 g/dl (31.0-36.0); MEAN CORPUSCULAR VOLUME 94 fL (80-96); MONOCYTES # (AUTO) 0.7 K/uL (0.1-1.30); MONOCYTES % (AUTO) 7.9 % (2.0-12.0); NEUTROPHILS # (AUTO) 5.8 K/uL (1.8-8.9); NEUTROPHILS % (AUTO) 68.3 % (43.0-81.0); PLATELET COUNT (AUTO) 202 K/uL (150-450); RED BLOOD CELL COUNT(AUTO) 3.89 MIL/uL (4.5-6.0); WHITE BLOOD COUNT (AUTO) 8.4 K/uL (4.3-11.0)
[2022-04-19 07:13] LABS: CALCIUM, SERUM 8.9 mg/dL (8.5-10.1); CREATININE 1.8 mg/dL (0.6-1.3); POTASSIUM 4.1 mmol/L (3.5-5.1)
--- NOTE | 2022-04-19 07:15 | NUR ---
DOUGHNUT FRYER CLOSING NOTES PATIENT IS IN BED, AWAKE AND COHERENT, A/O X 4. ON MODERATE HIGH BACK REST POSITION. ON ROOM AIR SATURATING WELL. WITH IV ACCESS AT LEFT HAND #22G WITH NS 1000ML AT 75ML/HR INFUSING WELL. CONTINENT WITH BRP. PATIENT IS FOR FEMORAL AND TIBIAL BYPASS WITH CONSENT SIGNED AND VERIFIED. WITH BLOOD PRODUCTS AVAILABLE. NO PAIN OR ANY DISCOMFORT NOTED AT AT THIS TIME. PATIENT IS CURRENTLY ON NPO SINCE MIDNIGHT. ALL DUE MEDICATIONS GIVEN AND ALL NEEDS ATTENDED. KEPT PATIEN T WARM AND COMFORTABLE. KEPT BED ON LOWER LOCKED POSITION. KEPTCALL LIGHT WITHIN AT REACH. WILL ENDORSED TO AM SHIFT FOR BRIANNA
[2022-04-19 07:23] LABS: PHOSPHORUS 2.8 mg/dL (2.5-4.9)
[2022-04-19] MEDS: PANTOPRAZOLE 40 MG TABLET.DR PO SCH (07:30)
--- NOTE | 2022-04-19 07:32 | NUR ---
FORMING DEPARTMENT SUPERVISOR OPENING NOTES: RECEIVED PATIENT IN BED AWAKE A/OX4 IN NO S/SX OF ACUTE DISTRESS AT THIS TIME; CURRENTLY ON ROOM AIR; WITH 02 SAT >95% AT THIS TIME.WITH IV ACCESS RIGHT HAND WITH NS RUNNING AT 75 ML/HR, PATENT AND FLUSHING WELL., SAFETY MEASURES RENDERED . BED ALARM IS ON. HEAD OF BED ELEVATED. BED IS LOCKED, IN LOWEST POSITION AND SIDE RAILS UP. CALL LIGHT WITHIN REACH OF THE PATIENT. APPLICABLE ISOLATION PRECAUTIONS IN PLACE. WILL CONTINUE TO MONITOR AND REASSESS FOR ANY CHANGES AND WILL CARRY OUT ANY ONGOING AND ACTIVE MD ORDER.
[2022-04-19 08:00] VITALS: BP 161/88
[2022-04-19] MEDS: BLOOD SUGAR DIAGNOSTIC 1 EACH STRIP VI SCH ×4 (08:04→21:28)
[2022-04-19] MEDS ORDERED: HEMOSTATIC MATRIX 8 ML 1 EACH PAD MC ONE (08:08)
[2022-04-19] MEDS ORDERED: GELATIN SPONGE,ABSORBABLE 1 EA SPONGE TP ONE (08:09)
[2022-04-19] MEDS ORDERED: LIDOCAINE 1% INJ 50 ML MDV IJ ONE (08:09)
[2022-04-19] MEDS: SPIRONOLACTONE 25 MG TABLET PO SCH (08:24)
[2022-04-19] MEDS: CARVEDILOL 12.5 MG TABLET PO SCH ×2 (08:24→17:19)
[2022-04-19] MEDS: hydrALAZINE HCL 50 MG TABLET PO SCH ×3 (08:32→17:19)
[2022-04-19] MEDS: CLONIDINE HCL 0.1 MG TABLET PO SCH ×2 (08:33→17:19)
[2022-04-19] MEDS: NIFEdipine XL (30MG) 30 MG TAB PO SCH ×2 (08:33→17:19)
[2022-04-19] MEDS: INSULIN GLARGINE, 100 UNIT/ML CARTRIDGE SQ SCH ×2 (09:00→18:30)
[2022-04-19] MEDS: HEPARIN SODIUM, PORCINE 5000 UNITS/1 ML VIAL SQ SCH ×2 (09:00→21:20)
--- NOTE | 2022-04-19 09:00 | NUR ---
RN NOTES: SPOKE TO JOAN BEARDEN NP PT IS NPO MEDS OK TO GIVE ONLY COREG AND ALDACTONE WITH SIPS OF WATER AND TO HOLD THE REST OF MEDICINE ALSO TO HOLD HEPARIN
[2022-04-19] MEDS ORDERED: CELLULOSE,OXIDIZED 1 EACH EACH MC ONE (10:32)
--- NOTE | 2022-04-19 10:43 | NUR ---
RN NOTES: V/S CHECKED BP 157/94 TEMP 98.4 , PULSE 76,RR 18 O2 SAT 100% PICKED UP FOR SURGERY BY SURGERY ROOM STAFF
--- NOTE | 2022-04-19 11:44 | NUR ---
RN NOTES: PT IS BACK , PROCEDURE NOT DONE, PER ANAESTHESIA PT HAS 3 PREVIOUS CABG NEED TO GO DIFFERENT HOSPITAL FOR THE PROCEDURE
--- NOTE | 2022-04-19 12:06 | NUR ---
RN NOTES: BLOOD SUGAR CHECK 50 MG/DL 2 ORNAGE JUICE WITH 4 PACKET OF SUGAR GIVEN , PT DENIED ANY S/S OF HYPOGLYCEMIA
--- NOTE | 2022-04-19 12:25 | NUR ---
RN NOTES: RECHECKED BLOOD SUGAR 53,DEXTROSE 50% IV GIVEN , PT START EATING HIS LUNCH
[2022-04-19 13:00] VITALS: BP 154/74
--- NOTE | 2022-04-19 17:55 | NUR ---
rn notes: left message to Uziel Morales NP blood sugar earlier was 53 and went up after D50% now blood sugar 150 awaiting for order
--- NOTE | 2022-04-19 18:32 | NUR ---
RN NOTES: SPOKE TO JOAN BEARDEN NP WITH ORDER NOT TO GIVE LANTUS 46 UNIT IS OK TO GIVE LANTUS 35 UNIT NOW.LANTUS GIVEN ORDERED
--- NOTE | 2022-04-19 19:31 | NUR ---
MS RN OPENING NOTE RECEIVED PT AWAKE IN BED. FAMILY AT BEDSIDE. A/O X4 AND ABLE TO MAKE NEEDS KNOWN. PT STABLE ON ROOM AIR. NO SOB OR S/S OF RESPIRATORY DISTRESS. BREATHING EVEN AND UNLABORED. IV ACCES R HAND 20G, INTACT AND PATENT, RUNNING NS @ 75 ML/HR. SAFETY PRECAUTIONS IN PLACE. BED IN LOWEST LOCKED POSITION, HOB ELEVATED, SIDE RAILS UP X2, AND CALL LIGHT AND TABLE WITHIN REACH. ALL NEEDS MET AT THIS TIME.
[2022-04-19 21:00] VITALS: BP 125/64
[2022-04-19] MEDS: ATORVASTATIN 40 MG TABLET PO SCH (21:21)
[2022-04-19] MEDS: *INSULIN REGULAR(HUMULIN R)HUM 100 UNIT/ML VIAL SQ PRN (21:30)
--- NOTE | 2022-04-19 23:50 | NUR ---
RN NOTE PT COMPLAINED OF PAIN 10/10 OF R FOOT. ADMINISTERED DILAUDID 1 MG FOR SEVERE PAIN ORDERED. MADE COMFORTABLE IN BED. ALL NEEDS MET AT THIS TIME.
[2022-04-20] MEDS: HYDROMORPHONE 1 MG/1 ML DISP.SYRIN IV PRN ×3 (04:01→13:29)
--- NOTE | 2022-04-20 04:02 | NUR ---
RN NOTE PT COMPLAINED OF R FOOT PAIN 91/0. ADMINISTERED DILAUDID 1 MG FOR SEVERE PAIN ORDERED. MADE COMFORTABLE IN BED. NPO AT THIS TIME. ALL NEEDS MET AT THIS TIME.
[2022-04-20] MEDS: IV NS 0.9% 1,000 ML IV PRN (04:05)
[2022-04-20 05:00] VITALS: BP 145/76
--- NOTE | 2022-04-20 06:26 | NUR ---
MS RN CLOSING NOTE PT AWAKE IN BED. A/O X4 AND ABLE TO MAKE NEEDS KNOWN. PT STABLE ON ROOM AIR. NO SOB OR S/S OF RESPIRATORY DISTRESS. BREATHING EVEN AND UNLABORED. IV ACCES R HAND 20G, INTACT AND PATENT, RUNNING NS @ 75 ML/HR. ALL DUE MEDS GIVEN ORDERED. KEPT NPO AT MIDNIGHT FOR LEXISCAN. CONSENT IN CHART. SAFETY PRECAUTIONS IN PLACE AT ALL TIMES. BED IN LOWEST LOCKED POSITION, HOB ELEVATED, SIDE RAILS UP X2, AND CALL LIGHT AND TABLE WITHIN REACH. ALL NEEDS MET AT THIS TIME AND WILL ENDORSE TO ONCOMING NURSE FOR BRIANNA.
--- NOTE | 2022-04-20 07:00 | NUR ---
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 No complaints of pain or discomfort at this time. Pt is currently on RA and tolerating it well. IV access on Right hand 20G patent and intact running IVF NS @ 75cc/hr. HOB elevated to pts comfort. Siderails up at all times. Call light within reach. Will continue to monitor.
[2022-04-20] MEDS: BLOOD SUGAR DIAGNOSTIC 1 EACH STRIP VI SCH ×2 (07:42→11:21)
[2022-04-20 08:00] VITALS: BP 175/74
[2022-04-20] MEDS ORDERED: REGADENOSON 0.4 MG/5 ML DISP.SYRIN IVP ONE (08:00)
[2022-04-20] MEDS: hydrALAZINE HCL 50 MG TABLET PO SCH ×2 (08:50→12:06)
[2022-04-20] MEDS: CLONIDINE HCL 0.1 MG TABLET PO SCH (08:50)
[2022-04-20] MEDS: PANTOPRAZOLE 40 MG TABLET.DR PO SCH (08:51)
[2022-04-20] MEDS: CARVEDILOL 12.5 MG TABLET PO SCH (08:51)
[2022-04-20] MEDS: SPIRONOLACTONE 25 MG TABLET PO SCH (08:51)
[2022-04-20] MEDS: NIFEdipine XL (30MG) 30 MG TAB PO SCH (08:51)
[2022-04-20] MEDS: INSULIN REGULAR, HUMAN 100 UNIT/ML 3 ML VIAL SQ PRN ×2 (08:54→12:08)
[2022-04-20] MEDS: INSULIN GLARGINE, 100 UNIT/ML CARTRIDGE SQ SCH (08:55)
[2022-04-20] MEDS: HEPARIN SODIUM, PORCINE 5000 UNITS/1 ML VIAL SQ SCH (09:00)
[2022-04-20 12:06] VITALS: BP 153/60
--- NOTE | 2022-04-20 16:25 | NUR ---
COMMUNITY EDUCATOR NOTES Pt medically stable for discharge. Belongings list signed and paperwork given to pt and all medications explained to pt. Reminded pt of follow up appointment with Dr. Emery. Verbalized understanding. Picked up by girlfrienni Alamo.
[2022-04-22] MEDS ORDERED: HYDR-3972 PO (15:21)
== END 2022-04-20 17:47 | disposition home health service (06) | DRG 299 ==
LOC: ER 12:40 → MEDSG1 18:24 → TELE1 04-14 20:04 → MEDSG1 04-16 11:02
PROVIDERS: ADMIT Nurse Practitioner Acute Care; ATTEND Nurse Practitioner Acute Care
PROC: B41FYZZ Fluoroscopy of Right Lower Extremity Arteries using Other Contrast (ICD-10-PCS; principal; 2022-04-14)
DX: E11.52 Type 2 diabetes mellitus with diabetic peripheral angiopathy with gangrene (principal); N17.0 Acute kidney failure with tubular necrosis; I13.0 Hypertensive heart and chronic kidney disease with heart failure and stage 1 through stage 4 chronic kidney disease, or unspecified chronic kidney disease; I50.32 Chronic diastolic (congestive) heart failure; D68.59 Other primary thrombophilia; I70.261 Atherosclerosis of native arteries of extremities with gangrene, right leg; E11.22 Type 2 diabetes mellitus with diabetic chronic kidney disease; Z20.822 Contact with and (suspected) exposure to COVID-19; Z95.1 Presence of aortocoronary bypass graft; Z86.718 Personal history of other venous thrombosis and embolism; Z90.49 Acquired absence of other specified parts of digestive tract; N18.9 Chronic kidney disease, unspecified; Z93.3 Colostomy status; I25.10 Atherosclerotic heart disease of native coronary artery without angina pectoris; E11.65 Type 2 diabetes mellitus with hyperglycemia; E78.5 Hyperlipidemia, unspecified; F17.210 Nicotine dependence, cigarettes, uncomplicated; E11.621 Type 2 diabetes mellitus with foot ulcer; L97.519 Non-pressure chronic ulcer of other part of right foot with unspecified severity; Z53.8 Procedure and treatment not carried out for other reasons; Z79.4 Long term (current) use of insulin; Z79.82 Long term (current) use of aspirin; Z79.84 Long term (current) use of oral hypoglycemic drugs; Z79.899 Other long term (current) drug therapy; Z68.36 Body mass index [BMI] 36.0-36.9, adult; E66.9 Obesity, unspecified; Z79.02 Long term (current) use of antithrombotics/antiplatelets; Z82.49 Family history of ischemic heart disease and other diseases of the circulatory system; Z83.3 Family history of diabetes mellitus
CPT/HCPCS: 36246; 36415; 73630-TC; 75625; 76770-TC; 80048-TC; 80076-TC; 80202-TC; 81001; 82962-TC; 83605-TC; 83735-TC; 84100-TC; 85025-TC; 85730-TC; 86803; 86850-TC; 87040-TC; 87081-TC; 87806; 93307-TC; 93926-TC; A4223; A6407; A9502; C1769; C1887; C9803; G0378; G0500; J0692; J1170; J1644; J1815; J2250; J2270; J2543; J2785; J3010; J3370; J3490; J7030; J7060; Q9967

== ENCOUNTER 2022-04-26 10:30 | Outpatient (CLI) | payer MEDICARE, OTHER ==
[~2022-04-26 10:30] MED LIST changes: +ACET325T53 PO; +AMLO-212 PO; +ATOR20TA PO; +BENZ200C53 PO; +BUDE10.2 INH; -BUME2TAB7 PO; +CARV25TA PO; +CLON0.1T PO; +CYAN-51 SL; +DOCU-141 PO; +ERGO400T7 PO; +FURO40TA5 PO; +GABA600T12 PO; +HYDR-3972 PO; +INSU100V3 IJ; +IPRA0.2S49 NEB; +ISOS30TA PO; -ISOS30TA86 PO; +LANC-346 MC; +LIRA0.6P2 SQ; +MAG30ORA PO; +MAGN400O21 PO; -METO2.5T2 PO; +METO50TA7 PO; -METR500T PO; +OXYC-133 PO; +SUCR1ORA15 PO; +ZOLP5TAB8 PO
== END 2022-04-26 23:59 | disposition home health service (06) ==
LOC: WOU 10:30
PROVIDERS: ATTEND Podiatrist Foot & Ankle Surgery
DX: E11.52 Type 2 diabetes mellitus with diabetic peripheral angiopathy with gangrene (principal); I96 Gangrene, not elsewhere classified; Z79.4 Long term (current) use of insulin; E11.621 Type 2 diabetes mellitus with foot ulcer; L97.518 Non-pressure chronic ulcer of other part of right foot with other specified severity; Z79.02 Long term (current) use of antithrombotics/antiplatelets; Z79.82 Long term (current) use of aspirin
CPT/HCPCS: G0463

== ENCOUNTER 2022-04-28 11:26 | Outpatient (CLI) | payer MEDICARE, OTHER | END 2022-04-28 23:59 | disposition home health service (06) | LOC: WOU 11:26 | PROVIDERS: ATTEND Specialist | DX: E11.52 Type 2 diabetes mellitus with diabetic peripheral angiopathy with gangrene (principal); I96 Gangrene, not elsewhere classified; E11.621 Type 2 diabetes mellitus with foot ulcer; L97.518 Non-pressure chronic ulcer of other part of right foot with other specified severity; Z79.4 Long term (current) use of insulin; Z79.02 Long term (current) use of antithrombotics/antiplatelets; Z79.82 Long term (current) use of aspirin | CPT/HCPCS: 71045; G0463 ==

== ENCOUNTER 2022-05-03 10:32 | Outpatient (CLI) | payer MEDICARE, OTHER | END 2022-05-03 23:59 | disposition home health service (06) | LOC: WOU 10:32 | PROVIDERS: ATTEND Podiatrist Foot & Ankle Surgery | DX: E11.52 Type 2 diabetes mellitus with diabetic peripheral angiopathy with gangrene (principal); I70.261 Atherosclerosis of native arteries of extremities with gangrene, right leg; E11.621 Type 2 diabetes mellitus with foot ulcer; L97.518 Non-pressure chronic ulcer of other part of right foot with other specified severity; E11.42 Type 2 diabetes mellitus with diabetic polyneuropathy; Z79.4 Long term (current) use of insulin; Z95.1 Presence of aortocoronary bypass graft; Z79.82 Long term (current) use of aspirin; Z79.02 Long term (current) use of antithrombotics/antiplatelets | CPT/HCPCS: G0463 ==

== ENCOUNTER 2022-10-14 11:55 | Outpatient (CLI) | payer MEDICARE, OTHER ==
[~2022-10-14 11:55] MED LIST changes: +ACET-2605 PO; -ACET325T53 PO; -ATOR20TA PO; -BENZ200C53 PO; -CARV25TA2 PO; -CLON0.1T PO; -CYAN-51 SL; -DOCU-141 PO; -ERGO400T7 PO; -FENO145T PO; -HYDR-4354 PO; -INSU100V3 IJ; -MAG30ORA PO; -MAGN400O21 PO; -ONDA4TAB5 PO; -SUCR1ORA15 PO; -ZOLP5TAB8 PO
[2022-10-14] MEDS ORDERED: TORS20TA3 PO (15:12)
[2022-10-14] MEDS ORDERED: ALLO100T PO (15:12)
[2022-10-14] MEDS ORDERED: ICOS1CAP PO (15:12)
[2022-10-14] MEDS ORDERED: BLOO-668 IN (15:12)
[2022-10-14] MEDS ORDERED: NIFE90TA2 PO (15:12)
[2022-10-14] MEDS ORDERED: FOLI0.8T3 PO (15:12)
[2022-10-14] MEDS ORDERED: CARV25TA PO (15:12)
== END 2022-10-14 23:59 | disposition home health service (06) ==
LOC: WOU 11:55
PROVIDERS: ATTEND Podiatrist Foot & Ankle Surgery
DX: E11.621 Type 2 diabetes mellitus with foot ulcer (principal); I70.244 Atherosclerosis of native arteries of left leg with ulceration of heel and midfoot; L97.423 Non-pressure chronic ulcer of left heel and midfoot with necrosis of muscle; E11.51 Type 2 diabetes mellitus with diabetic peripheral angiopathy without gangrene; E66.9 Obesity, unspecified; Z68.30 Body mass index [BMI] 30.0-30.9, adult; Z79.4 Long term (current) use of insulin; Z79.02 Long term (current) use of antithrombotics/antiplatelets; Z79.899 Other long term (current) drug therapy
CPT/HCPCS: 11043; 11046; A6253; A6197

== ENCOUNTER 2022-10-14 12:54 | Emergency (ER) | payer MEDICARE, OTHER ==
[~2022-10-14] VITALS: Ht 185.4 cm; Wt 105.2 kg
[2022-10-14] MEDS ORDERED: IV NS 0.9% 1,000 ML BAG IV ONE (13:00)
[2022-10-14 13:53] LABS: BASOPHILS % (AUTO) 0.6 % (0.0-2.0); EOSINOPHILS # (AUTO) 0.1 K/uL (0.0-0.7); EOSINOPHILS % (AUTO) 1.2 % (0.0-6.0); HEMATOCRIT 35 % (39-51); HEMOGLOBIN 11.2 g/dL (13.5-17.5); LYMPHOCYTES # (AUTO) 1.3 K/uL (0.8-4.8); LYMPHOCYTES % (AUTO) 26.1 % (20.0-44.0); MEAN CORPUSCULAR HEMOGLOBIN 27 PG (26.0-33.0); MEAN CORPUSCULAR HGB CONC 32 g/dl (31.0-36.0); MEAN CORPUSCULAR VOLUME 84 fL (80-96); MONOCYTES # (AUTO) 0.5 K/uL (0.1-1.30); NEUTROPHILS # (AUTO) 3.2 K/uL (1.8-8.9); NEUTROPHILS % (AUTO) 62.1 % (43.0-81.0); PLATELET COUNT (AUTO) 359 K/uL (150-450); RED CELL DISTRIBUTION WIDTH 17.8 % (11.5-15.0); WHITE BLOOD COUNT (AUTO) 5.1 K/uL (4.3-11.0)
[2022-10-14 14:05] LABS: INR 1.1 (0.91-1.10); PARTIAL THROMBOPLASTIN TIME 24.4 SEC (24.3-34.3); PROTHROMBIN TIME 11.5 SECS (9.2-11.1)
[2022-10-14 14:14] LABS: ALANINE AMINOTRANSFERASE 28 U/L (12-78); ALBUMIN 1.9 g/dL (3.4-5.0); ALKALINE PHOSPHATASE 142 U/L (46-116); ASPARTATE AMINOTRANSFERASE 22 U/L (15-37); BILIRUBIN,DIRECT 0.2 mg/dL (0.0-0.2); BILIRUBIN,TOTAL 0.4 mg/dL (0.2-1.0); CALCIUM, SERUM 7.9 mg/dL (8.5-10.1); CARBON DIOXIDE 26 mmol/L (21-32); CHLORIDE 101 mmol/L (98-107); CREATININE 2.6 mg/dL (0.6-1.3); GLUCOSE 150 mg/dL (74-106); SODIUM SERUM 137 mmol/L (136-145); TOTAL PROTEIN, SERUM 6.5 g/dL (6.4-8.2); UREA NITROGEN, BLOOD 17 mg/dL (7-18)
[2022-10-14 14:16] LABS: LACTIC ACID 1.7 mmol/L (0.4-2.0); POTASSIUM 2.5 mmol/L (3.5-5.1)
[2022-10-14] MEDS ORDERED: POTASSIUM CHLORIDE 20 MEQ TAB.PRT.SR PO ONE ×2 (14:30→14:36)
[2022-10-14] MEDS ORDERED: POTASSIUM CL. PREMIX PERIPHER. 50 ML ONE ×2 (14:36→15:19)
[2022-10-14] MEDS ORDERED: BLOO-668 IN (15:12)
[2022-10-14] MEDS ORDERED: ALLO100T PO (15:12)
[2022-10-14] MEDS ORDERED: NIFE90TA2 PO (15:12)
[2022-10-14] MEDS ORDERED: FOLI0.8T3 PO (15:12)
[2022-10-14] MEDS ORDERED: TORS20TA3 PO (15:12)
[2022-10-14] MEDS ORDERED: CARV25TA PO (15:12)
[2022-10-14] MEDS ORDERED: ICOS1CAP PO (15:12)
[2022-10-14] MEDS: POTASSIUM CL. PREMIX PERIPHER. 50 ML IV SCH ×3 (15:16→18:50)
[2022-10-14 16:19] VITALS: BP 130/81; TEMP 98.1; O2SAT 100
[2022-10-14] MEDS ORDERED: HYDROMORPHONE 1 MG/1 ML DISP.SYRIN IV ONE (17:30)
[2022-10-14] MEDS ORDERED: HYDROMORPHONE 1 MG/1 ML DISP.SYRIN ONE (17:31)
== END 2022-10-14 21:15 | disposition left against medical advice (07) ==
LOC: ER 12:57
DX: I13.0 Hypertensive heart and chronic kidney disease with heart failure and stage 1 through stage 4 chronic kidney disease, or unspecified chronic kidney disease (principal); N18.9 Chronic kidney disease, unspecified; E11.22 Type 2 diabetes mellitus with diabetic chronic kidney disease; I50.9 Heart failure, unspecified; E87.6 Hypokalemia; R42 Dizziness and giddiness; Z98.890 Other specified postprocedural states; F17.200 Nicotine dependence, unspecified, uncomplicated; Z79.899 Other long term (current) drug therapy; Z79.82 Long term (current) use of aspirin
CPT/HCPCS: 36415; 70450-TC; 71045-TC; 80048-TC; 80076-TC; 83605-TC; 84484-TC; 85025-TC; 85730-TC; 87040-TC; A4223; J1170; J3480; J7030; J7050

== ENCOUNTER 2022-10-28 10:43 | Outpatient (CLI) | payer MEDICARE, OTHER ==
[~2022-10-28 10:43] MED LIST changes: -ACET-2605 PO; +ALLO100T PO; -AMLO-212 PO; +BLOO-668 IN; -BUDE10.2 INH; +FOLI0.8T3 PO; -FURO40TA5 PO; -HYDR-3972 PO; +ICOS1CAP PO; -IPRA0.2S49 NEB; -ISOS30TA PO; -LANC-346 MC; -LIRA0.6P2 SQ; -METO50TA7 PO; -OXYC-133 PO; -SITA100T PO; +TORS20TA3 PO
== END 2022-10-28 23:59 | disposition home health service (06) ==
LOC: WOU 10:43
PROVIDERS: ATTEND Podiatrist Foot & Ankle Surgery
DX: E11.621 Type 2 diabetes mellitus with foot ulcer (principal); L97.423 Non-pressure chronic ulcer of left heel and midfoot with necrosis of muscle; I70.244 Atherosclerosis of native arteries of left leg with ulceration of heel and midfoot; E11.51 Type 2 diabetes mellitus with diabetic peripheral angiopathy without gangrene; Z79.4 Long term (current) use of insulin; E66.9 Obesity, unspecified; Z68.30 Body mass index [BMI] 30.0-30.9, adult
CPT/HCPCS: 11043; 97605-TC

== ENCOUNTER 2022-11-01 10:11 | Outpatient (CLI) | payer MEDICARE, OTHER | END 2022-11-01 23:59 | disposition home or self-care (01) | LOC: WOU 10:11 | PROVIDERS: ATTEND Specialist | DX: E11.52 Type 2 diabetes mellitus with diabetic peripheral angiopathy with gangrene (principal); I96 Gangrene, not elsewhere classified; E11.621 Type 2 diabetes mellitus with foot ulcer; L97.423 Non-pressure chronic ulcer of left heel and midfoot with necrosis of muscle; I70.244 Atherosclerosis of native arteries of left leg with ulceration of heel and midfoot; E66.9 Obesity, unspecified; Z68.30 Body mass index [BMI] 30.0-30.9, adult; Z79.4 Long term (current) use of insulin; Z79.02 Long term (current) use of antithrombotics/antiplatelets; Z79.899 Other long term (current) drug therapy | CPT/HCPCS: 97605; G0463 ==

== ENCOUNTER 2022-11-10 12:14 | Emergency (ER) | payer MEDICARE, OTHER ==
[~2022-11-10] VITALS: Ht 182.9 cm; Wt 112.9 kg
[2022-11-10 12:35] LABS: BASOPHILS % (AUTO) 0.6 % (0.0-2.0); EOSINOPHILS % (AUTO) 0.8 % (0.0-6.0); HEMATOCRIT 32 % (39-51); HEMOGLOBIN 10.4 g/dL (13.5-17.5); LYMPHOCYTES # (AUTO) 1.1 K/uL (0.8-4.8); LYMPHOCYTES % (AUTO) 18.8 % (20.0-44.0); MEAN CORPUSCULAR HEMOGLOBIN 28 PG (26.0-33.0); MEAN CORPUSCULAR HGB CONC 32 g/dl (31.0-36.0); MEAN CORPUSCULAR VOLUME 85 fL (80-96); MONOCYTES # (AUTO) 0.6 K/uL (0.1-1.30); MONOCYTES % (AUTO) 10.6 % (2.0-12.0); NEUTROPHILS # (AUTO) 4.1 K/uL (1.8-8.9); NEUTROPHILS % (AUTO) 69.2 % (43.0-81.0); PLATELET COUNT (AUTO) 302 K/uL (150-450); RED BLOOD CELL COUNT(AUTO) 3.78 MIL/uL (4.5-6.0); RED CELL DISTRIBUTION WIDTH 23.5 % (11.5-15.0); WHITE BLOOD COUNT (AUTO) 5.9 K/uL (4.3-11.0)
[2022-11-10 12:43] LABS: CALCIUM, SERUM 7.5 mg/dL (8.5-10.1); CARBON DIOXIDE 27 mmol/L (21-32); CHLORIDE 102 mmol/L (98-107); CREATININE 2.2 mg/dL (0.6-1.3); GLUCOSE 251 mg/dL (74-106); SODIUM SERUM 136 mmol/L (136-145); UREA NITROGEN, BLOOD 36 mg/dL (7-18)
[2022-11-10 12:50] LABS: INR 1.01 (0.91-1.10); PARTIAL THROMBOPLASTIN TIME 23.2 SEC (24.3-34.3); PROTHROMBIN TIME 10.7 SECS (9.2-11.1)
[2022-11-10] MEDS ORDERED: TENECTEPLASE 50 MG KIT IV ONE (13:30)
[2022-11-10] MEDS ORDERED: NORMAL SALINE FLUSH 10 ML SYR IV ONE ×2 (13:30)
[2022-11-10] MEDS ORDERED: TNKASE WASTE DOCUMENTATION IV ONE (13:30)
[2022-11-10 15:19] VITALS: BP 109/61; TEMP 208.6; O2SAT 98
== END 2022-11-10 15:19 | disposition short-term general hospital (02) ==
LOC: ER 12:18
DX: I63.9 Cerebral infarction, unspecified (principal); I13.0 Hypertensive heart and chronic kidney disease with heart failure and stage 1 through stage 4 chronic kidney disease, or unspecified chronic kidney disease; I50.9 Heart failure, unspecified; N18.9 Chronic kidney disease, unspecified; E11.65 Type 2 diabetes mellitus with hyperglycemia; E11.22 Type 2 diabetes mellitus with diabetic chronic kidney disease; D64.9 Anemia, unspecified; E78.5 Hyperlipidemia, unspecified; E66.9 Obesity, unspecified; F17.200 Nicotine dependence, unspecified, uncomplicated; Z98.890 Other specified postprocedural states; Z79.899 Other long term (current) drug therapy; Z79.82 Long term (current) use of aspirin
CPT/HCPCS: 36415; 70450-TC; 80048-TC; 82962-TC; 84484-TC; 85025-TC; 85730-TC; J3101